=== PATIENT | female | born 1975 | race Caucasian/White ===

== ENCOUNTER → 2022-01-27 | Outpatient (CLI) | payer BC, SELFPAY ==
[2022-01-27 07:53] LABS: Bacteria 0 SEEN /hpf (None Seen); Mucous, Urine 0 SEEN /hpf (<or=2+); Red Blood Cells-Urine 0 SEEN /hpf (0-5)
[2022-01-27 08:21] LABS: Absolute Lymphocyte Count 2.12 X10^3/uL (0.83-4.51); Absolute Neutrophil Count 4.7 X10^3/uL (2.0-7.7); Basophil# 0.02 X10^3/uL; Basophil% 0.3 % (0-1); Color, Urine Yellow (Yellow); Eosinophil# 0.14 X10^3/uL; Eosinophils% 1.8 % (0-5); Glucose, Dipstick Normal (Normal); Hematocrit 40.5 % (37-47); Hemoglobin 13.6 g/dL (12.0-15.0); Ketone-Dipstick Negative (Negative); Leukocyte Esterase-Dipstick 25 /ul (Negative); Lymphocyte # 2.12 X10^3/ul (0.83-4.51); Mean Corp Hgb Conc 33.6 g/dL (32-36); Mean Corpuscular Volume 89.2 fL (81-99); Mean Platelet Vol. 10.8 fl (6.2-12.0); Monocyte# 0.58 X10^3/uL; Monocyte% 7.7 % (0-10); NRBC Flagged by Analyzer 0 % (0-5); Neutrophil # 4.69 X10^3/uL (2.7-7.7); Neutrophil % 61.8 % (47-70); Nitrite-Dipstick Negative (Negative); Occult Blood-Urine Negative /ul (Negative); Platelet Count 269 K/mm3 (150-450); Protein-Dipstick 15 mg/dl (Negative); RBC Distribution Width CV 13.7 % (11.6-14.6); RBC Distribution Width SD 44.8 fl (35.1-43.9); Red Blood Count 4.54 M/mm3 (4.2-5.4); Urine Bilirubin Dipstick Negative (Negative); Urine Clarity Clear (Clear); Urine Urobilinogen 1 mg/dl (Normal); White Blood Count 7.6 K/mm3 (4.4-11.0)
[2022-01-27 08:42] LABS: Squamous Epithelial Cells - UA 0-5 SEEN /hpf (5-10); White Blood Cells 0-5 SEEN /hpf (0-5)
[2022-01-27 08:52] LABS: Microalbumin,Random Urine 15.7 mg/L (NO RANGE EST.); Microalbumin:Creatinine Ratio 8.2 mg/g CRE (<30 mg/g CRE)
[2022-01-27 08:53] LABS: ALB/GLOB Ratio 0.8 RATIO (0.9-2.4); AST(SGOT) 16 U/L (15-37); Alanine Aminotransfer ALT/SGPT 31 U/L (13-56); Albumin, Serum 3.6 g/dL (3.2-5.0); Alkaline Phosphatase 66 U/L (45-117); Anion Gap 4 (5-15); BUN 10 mg/dL (7-18); BUN/Creat Ratio 15.3 RATIO (10-20); Calcium,Total 8.5 mg/dL (8.5-10.1); Chloride 107 mmol/L (98-107); Cholesterol 169 mg/dL (200); Creatinine, Serum 0.65 mg/dL (0.55-1.02); EST Glomerular Filtration Rate 102 mL/min (>60); Est Glom Filt Rate - Afr Amer 124 mL/min (>60); Globulin 4.3 g/dL (2.2-4.2); Glucose 116 mg/dL (74-106); High Density Lipoprotein 35 mg/dL; Potassium 3.8 mmol/L (3.5-5.1); Protein, Total 7.9 g/dL (6.4-8.2); Sodium Level 137 mmol/L (136-145); Triglycerides 75 mg/dL; Very Low Density Lipoprotein 15 mg/dL (5-40)
== END | disposition home or self-care (01) ==
LOC: LAB 07:49
PROVIDERS: PCP Internal Medicine; Referring Provider Internal Medicine; Visit Provider Internal Medicine
DX: I10 Essential (primary) hypertension (principal)
CPT/HCPCS: 36415; 80053; 80061; 81001; 82043; 82570; 85025

== ENCOUNTER → 2022-11-22 | Outpatient (CLI) | payer BC, SELFPAY ==
[2022-11-22 16:37] LABS: Hematocrit 39.6 % (37-47); Hemoglobin 13.2 g/dL (12.0-15.0); Mean Corp Hgb Conc 33.3 g/dL (32-36); Mean Corpuscular Hgb 30.2 pg (27.0-32.0); Mean Corpuscular Volume 90.6 fL (81-99); Mean Platelet Vol. 10.9 fl (6.2-12.0); Platelet Count 247 K/mm3 (150-450); RBC Distribution Width CV 13.8 % (11.6-14.6); RBC Distribution Width SD 46.1 fl (35.1-43.9); Red Blood Count 4.37 M/mm3 (4.2-5.4); White Blood Count 9.4 K/mm3 (4.4-11.0)
[2022-11-22 16:59] LABS: BNP,B-Type NATRIURETIC PEPTIDE 12.8 pg/mL (0-100)
== END | disposition home or self-care (01) ==
LOC: LAB 15:52
PROVIDERS: PCP Internal Medicine; Visit Provider Internal Medicine Pulmonary Disease
DX: R06.00 Dyspnea, unspecified (principal); R06.02 Shortness of breath
CPT/HCPCS: 36415; 83880; 85027

== ENCOUNTER → 2022-11-27 | Outpatient (CLI) | payer BC, SELFPAY ==
--- NOTE | 2022-11-27 15:55 | RAD_ITS ---
STUDY: X-RAY CHEST REASON FOR EXAM: Female, 47 years old. Dyspnea. Shortness of breath. TECHNIQUE: Frontal and lateral views of the chest. COMPARISON: None. FINDINGS: The lungs are clear and expanded. There is no demonstrated pleural abnormality. Normal size heart. Normal mediastinum and cyndee. Normal visualized pulmonary arteries. Normal visualized aortic arch and descending thoracic aorta. Diffuse scattered thoracic spondylosis. Normal visualized ribs, clavicles, and shoulders. There is no demonstrated abnormality of the visualized soft tissue structures of the upper abdomen. RAD/Chest PA and Lateral IMPRESSION: No active or acute cardiopulmonary disease. Electronically Signed: Shoaib Roberts, at 10:04 [facility] ,
== END | disposition home or self-care (01) ==
LOC: RAD 15:52
PROVIDERS: PCP Internal Medicine; Visit Provider Internal Medicine Pulmonary Disease
DX: R06.00 Dyspnea, unspecified (principal); R06.02 Shortness of breath
CPT/HCPCS: 71046

== ENCOUNTER → 2022-12-06 | Outpatient (CLI) | payer BC, SELFPAY ==
--- NOTE | 2022-12-06 13:40 | ECHOD_ITS ---
Reason For Study: DYSPNEA Procedure This was a 2D Doppler, Color Flow transthoracic echocardiogram. Exam performed in department. Left Ventricle Normal LV size. The estimated ejection fraction is 65 %. Normal diastology for age. No regional wall motion abnormalities noted. Right Ventricle Normal RV size. Normal systolic function. Atria Normal left atrium. Normal right atrium. No doppler evidence for ASD. Mitral Valve There is no mitral valve stenosis. No mitral valve insufficiency. Tricuspid Valve There is no tricuspid stenosis. Unable to estimate RV systolic pressure due to inadequate jet, pulmonary artery pressure probably normal. Aortic Valve Trisinus/trileaflet aortic valve. There is no aortic stenosis. No aortic valve insufficiency. Pulmonic Valve There is no pulmonic valvular stenosis. No pulmonic valve insufficiency. Great Vessels Normal aortic root. Pericardium/Pleural No pericardial effusion. MMode/2D Measurements & Calculations LVIDd: 5.0 cm IVSd: 1.1 cm Ao root diam: 2.8 cm LVIDs: 2.8 cm LVPWd: 1.1 cm FS: 42.9 % LAV(MOD-bp): 59.8 ml LVAd ap4: 32.9 cm2 LVAd ap2: 27.1 cm2 LAV(MOD-bp) Indexed: 25.3 ml/m2 LVLd ap4: 9.0 cm LVLd ap2: 8.4 cm LAV(MOD-sp2): 49.7 ml EDV(MOD-sp4): 101.4 ml EDV(MOD-sp2): 78.2 ml LAV(MOD-sp4): 67.5 ml EDV(sp4-el): 101.9 ml EDV(sp2-el): 74.2 ml LVAs ap4: 13.7 cm2 LVAs ap2: 13.6 cm2 LVLs ap4: 6.9 cm LVLs ap2: 6.2 cm ESV(MOD-sp4): 27.3 ml ESV(MOD-sp2): 26.7 ml ESV(sp4-el): 23.2 ml ESV(sp2-el): 25.2 ml EF(MOD-sp4): 73.0 % EF(MOD-sp2): 65.8 % EF(sp4-el): 77.2 % SV(MOD-sp4): 74.0 ml SV(MOD-sp2): 51.5 ml SV(sp4-el): 78.7 ml LA dimension(2D): 3.6 cm LA A4 area: 21.4 cm2 RA A4 area: 15.4 cm2 Time Measurements MV dec time: 0.20 sec Doppler Measurements & Calculations MV E max aquiles: 95.3 cm/sec Lat Peak E' Aquiles: 13.2 cm/sec Med Peak E' Aquiles: 14.5 cm/sec MV A max aquiles: 74.9 cm/sec E/E' lat: 7.2 E/E' med: 6.6 MV E/A: 1.3 Ao V2 max: 127.2 cm/sec LV V1 max: 98.2 cm/sec PA V2 max: 97.2 cm/sec Ao max P.5 mmHg LV V1 max P.9 mmHg Ao V2 mean: 88.3 cm/sec LV V1 mean P.7 mmHg Ao mean P.6 mmHg LV V1 mean: 61.1 cm/sec Ao V2 VTI: 26.5 cm LV V1 VTI: 18.7 cm AV (velocity ratio): 0.70 ECHO/Echo Complete Interpretation Summary The estimated ejection fraction is 65 %. No significant valvular abnormalities Ordering Physician: Rafa Maxwell V Referring Physician: Evangelina Irby Performed By: Tammy oJseph, JULIA, RVT
== END | disposition home or self-care (01) ==
LOC: CVS 13:37
PROVIDERS: PCP Internal Medicine; Referring Provider Internal Medicine Pulmonary Disease; Visit Provider Internal Medicine Pulmonary Disease
DX: R06.00 Dyspnea, unspecified (principal)
CPT/HCPCS: 93306

== ENCOUNTER → 2023-02-11 | Outpatient (CLI) | payer BC, SELFPAY ==
--- NOTE | 2023-02-11 07:14 | CT_ITS ---
INDICATION: Worsening shortness of breath EXAMINATION: CT CHEST WITHOUT CONTRAST - CT Chest W/O Contrast Injection TECHNIQUE: Helically acquired images were obtained of the chest. A radiation dose optimization technique was used for this scan. Scans were obtained in the prone position IV Contrast dosage and agent: None. COMPARISON: None. FINDINGS: LUNGS, PLEURA AND LARGE AIRWAYS: Likely chronic elevation of the right hemidiaphragm. No organizing infiltrate effusion or suspicious noncalcified mass or nodule. There is some subtle interstitial edema in both lung hernandez suggesting pulmonary vascular congestion. No demonstrated pleural or pericardial effusions. THYROID: No thyroid lesions. HEART AND PERICARDIUM: Heart size is normal. No pericardial effusion. CORONARY ARTERIES: Coronary artery calcification is not seen. VESSELS: Thoracic aorta is not dilated. MEDIASTINUM AND VICTORIANO: No suspicious mediastinal or hilar adenopathy. Multiple calcified perihilar lymph nodes noted. Esophagus is unremarkable. No hiatal hernia. UPPER ABDOMEN: Limited cuts through the upper abdomen show diffuse fatty infiltration of the liver. BONES: Degenerative bony changes CT/Chest without Contrast IMPRESSION: Subtle interstitial edema noted in both lung hernandez consistent with pulmonary vascular congestion. No organized infiltrate, effusion, or suspicious noncalcified mass or nodule Degenerative bony changes No suspicious adenopathy Electronically Signed: Jairo Huerta MD at 8:31 EDT Reading Location ID and State: [facility] / [place] , Service support ,
== END | disposition home or self-care (01) ==
LOC: CT 07:10
PROVIDERS: PCP Internal Medicine; Referring Provider Internal Medicine Pulmonary Disease; Visit Provider Internal Medicine Pulmonary Disease
DX: R06.09 Other forms of dyspnea (principal)
CPT/HCPCS: 71250

== ENCOUNTER → 2023-03-04 | Outpatient (CLI) | payer BC, SELFPAY ==
[2023-03-04 18:38] LABS: BNP,B-Type NATRIURETIC PEPTIDE 17.2 pg/mL (0-100)
== END | disposition home or self-care (01) ==
LOC: MTLAB 15:01
PROVIDERS: PCP Internal Medicine; Referring Provider Internal Medicine Pulmonary Disease; Visit Provider Internal Medicine Pulmonary Disease
DX: R06.02 Shortness of breath (principal)
CPT/HCPCS: 36415; 83880

== ENCOUNTER → 2023-12-07 | Outpatient (CLI) | payer BC, SELFPAY ==
--- OUTSIDE RECORDS SUMMARY | 2023-12-07 07:34 | XMS RPT_ITS | CCD ---
Author Name Unknown Address [address] [place] [address] Organization [facility] Care Team Providers Care Vat Skimmer Name Role Phone BENNIE MERRILL (EPOXY FABRICATION SUPERVISOR) Unavailable Unavailable SurekhaEvangelina farmer DO Unavailable [phone] [employer] CLASSROOM TECHNOLOGY TECHNICIAN, Kisha Unavailable Unavailable [employer] ELECTRONICS PROCESSOR, Elin Unavailable Unavailable Unavailable Unavailable Surekha DO Evangelina Unavailable [phone] [place] CLASSROOM TECHNOLOGY TECHNICIAN, Kayela Unavailable Unavailable Danika Paul MA Unavailable Unavailable SurekhaEvangelina farmer DO Attending Unavailable SurekhaEvangelina farmer DO Referring Unavailable Surekha Evangelina LAST Consulting Unavailable Medications Completed/Discontinued Medications Medication Drug Class(es) Dates Sig (Normalized) Sig (Original) 200 actuat albuterol 0.09 mg/actuat dry powder inhaler (11 sources) beta2-Adrenergic Agonist ProAir RespiClick 10 8 (90 Base) MCG/ACT Inhalation Aerosol Powder Breath Activated (108 (90 Base) MCG/ACT) Active Comments: dr holt - licensed staff mft Problems Active Problems Problem Classification Problem Date Documented Da te Episodic/Chronic Administrative/social admission (20 sources) Patient encounter status; Translations: [Nutritional counseling] 01-24-2022 Episodic Past or Other Problems Problem Classification Problem Date Documented Da te Episodic/Chronic Unclassified (11 sources) Pregnancies (); Translations: [Pregnancies ()] 01-24-2022 Results Test Name Value Interpretation Reference Range Facil ity Vital Signs Date Time Vital Sign Value Performing Clinician Facility 11-02-2022 07:22-0500 Body height 148.59 cm [facility]; [facility] Work Phone: 11-02-2022 07:22-0500 Body mass index (BMI) [Ratio] 58.17 kg/m2 [facility]; [facility] Work Phone: 11-02-2022 [id number] Body surface area Derived from formula 2.12 m2 [facility]; [facility] Work Phone: 11-02-2022 07:050 Body temperature 96.8 [degF] [facility]; [facility] Work Phone: 11-02-2022 07:050 Body weight 128.43 kg [facility]; [facility] Work Phone: 11-02-2022 07:22-050 Diastolic blood pressure 80 mm[Hg] [facility]; [facility] Work Phone: Encounters Encounter Date Encounter Type Care Provider Facility Start: 11-02-2022 End: 11-02-2022 Patient encounter procedure [facility]; [facility] Work Phone: Start: 11-02-2022 End: 11-02-2022 Periodic preventive med est patient 40-64yrs Evangelina Surekha DO Work Phone: [facility] Start: 10-09-2022 ambulatory Evangelina Surekha DO [facility] Start: 09-20-2022 End: 09-21-2022 Office outpatient visit 15 minutes Evangelina Surekha DO Work Phone: [facility] Start: 09-20-2022 Review Evangelina Fearo n DO Work Phone: [facility] Start: 03-19-2022 End: 03-20-2022 Office outpatient visit 15 minutes Evangelina Surekha DO Work Phone: [facility] Start: 03-19-2022 Review Evangelina Fearo n DO Work Phone: [facility] Start: 02-26-2022 End: 02-26-2022 Office outpatient visit 15 minutes Evangelina Surekha DO Work Phone: [facility] Start: 01-24-2022 End: 01-24-2022 Office outpatient new 30 minutes Evangelina Surekha DO Work Phone: [facility] Start: 10-10-2017 End: 10-11-2017 Ambulatory BENNIE (EPOXY FABRICATION SUPERVISOR) [facility] Start: 09-29-2017 End: 09-29-2017 Ambulatory BENNIE [facility] Procedures Date Procedure Procedure Detail Performing Clinician Start: 02-11-2023 End: 02-11-2023 Chest without Contrast Procedure Note: See Note; NOTES: [facility] Imaging Services [address] [place] [address] Chest without Contrast MR#: [id number] Acct: [id number] Name: YESSI MOREIRA Rep #: [id number] : 1975 F 47 From: Ollie Huerta MD PCP: Dr. Evangelina Irby, DO Status: REG CLI Study: Chest without Contrast Date of Exam: 02/11/23 Exam# [id number] Ordering Dr: Rafa Maxwell MD INDICATION: Worsening shortness of breath EXAMINATION: CT CHEST WITHOUT CONTRAST - CT Chest W/O Contrast Injection TECHNIQUE: Helically acquired images were obtained of the chest. A radiation dose optimization technique was used for this scan. Scans were obtained in the prone position IV Contrast dosage and agent: None. COMPARISON: None. FINDINGS: LUNGS, PLEURA AND LARGE AIRWAYS: Likely chronic elevation of the right hemidiaphragm. No organizing infiltrate effusion or suspicious noncalcified mass or nodule. There is some subtle interstitial edema in both lung hernandez suggesting pulmonary vascular congestion. No demonstrated pleural or pericardial effusions. THYROID: No thyroid lesions. HEART AND PERICARDIUM: Heart size is normal. No pericardial effusion. CORONARY ARTERIES: Coronary artery calcification is not seen. VESSELS: Thoracic aorta is not dilated. MEDIASTINUM AND CYNDEE: No suspicious mediastinal or hilar adenopathy. Multiple calcified perihilar lymph nodes noted. Esophagus is unremarkable. No hiatal hernia. UPPER ABDOMEN: Limited cuts through the upper abdomen show diffuse fatty infiltration of the liver. BONES: Degenerative bony changes CT/Chest without Contrast IMPRESSION: Subtle interstitial edema noted in both lung hernandez consistent with pulmonary vascular congestion. No organized infiltrate, effusion, or suspicious noncalcified mass or nodule Degenerative bony changes No suspicious adenopathy Electronically Signed: Jairo Huerta MD at 8:31 EDT , CC: Dr. Evangelina Irby DO; Dr. Rafa Maxwell MD Tube Mounter: Signed Evangelina Irby DO Work Phone: Start: 12-06-2022 End: 12-08-2022 Echo Complete Procedure Note: See Note; NOTES: [facility] [address] [place] [address] Echo Complete 12/06/22 1346 MR#: [id number] Acct: [id number] Name: YESSI MOREIRA Rep #: [id number] : 1975 47 From: Cyrus Holloway MD Attending Dr: Dr. Rafa Maxwell MD Status: REG CLI Ordering Dr: Rafa Maxwell MD Date: 12/06/22 Location: [facility] Sex: F C Admitted: Reason For Study: DYSPNEA Procedure This was a 2D Doppler, Color Flow transthoracic echocardiogram. Exam performed in department. Left Ventricle Normal LV size. The estimated ejection fraction is 65 %. Normal diastology for age. No regional wall motion abnormalities noted. Right Ventricle Normal RV size. Normal systolic function. Atria Normal left atrium. Normal right atrium. No doppler evidence for ASD. Mitral Valve There is no mitral valve stenosis. No mitral valve insufficiency. Tricuspid Valve There is no tricuspid stenosis. Unable to estimate RV systolic pressure due to inadequate jet, pulmonary artery pressure probably normal. Aortic Valve Trisinus/trileaflet aortic valve. There is no aortic stenosis. No aortic valve insufficiency. Pulmonic Valve There is no pulmonic valvular stenosis. No pulmonic valve insufficiency. Great Vessels Normal aortic root. Pericardium/Pleural No pericardial effusion. MMode/2D Measurements Calculations LVIDd: 5.0 cm IVSd: 1.1 cm Ao root diam: 2.8 cm LVIDs: 2.8 cm LVPWd: 1.1 cm FS: 42.9 % LAV(MOD-bp): 59.8 ml LVAd ap4: 32.9 cm2 LVAd ap2: 27.1 cm2 LAV(MOD-bp) Indexed: 25.3 ml/m2 LVLd ap4: 9.0 cm LVLd ap2: 8.4 cm LAV(MOD-sp2): 49.7 ml EDV(MOD-sp4): 101.4 ml EDV(MOD-sp2): 78.2 ml LAV(MOD-sp4): 67.5 ml EDV(sp4-el): 101.9 ml EDV(sp2-el): 74.2 ml LVAs ap4: 13.7 cm2 LVAs ap2: 13.6 cm2 LVLs ap4: 6.9 cm LVLs ap2: 6.2 cm ESV(MOD-sp4): 27.3 ml ESV(MOD-sp2): 26.7 ml ESV(sp4-el): 23.2 ml ESV(sp2-el): 25.2 ml EF(MOD-sp4): 73.0 % EF(MOD-sp2): 65.8 % EF(sp4-el): 77.2 % SV(MOD-sp4): 74.0 ml SV(MOD-sp2): 51.5 ml SV(sp4-el): 78.7 ml LA dimension(2D): 3.6 cm LA A4 area: 21.4 cm2 RA A4 area: 15.4 cm2 Time Measurements MV dec time: 0.20 sec Doppler Measurements Calculations MV E max aquiles: 95.3 cm/sec Lat Peak E' Aquiles: 13.2 cm/sec Med Peak E' Aquiles: 14.5 cm/sec MV A max aquiles: 74.9 cm/sec E/E' lat: 7.2 E/E' med: 6.6 MV E/A: 1.3 Ao V2 max: 127.2 cm/sec LV V1 max: 98.2 cm/sec PA V2 max: 97.2 cm/sec Ao max P.5 mmHg LV V1 max P.9 mmHg Ao V2 mean: 88.3 cm/sec LV V1 mean P.7 mmHg Ao mean P.6 mmHg LV V1 mean: 61.1 cm/sec Ao V2 VTI: 26.5 cm LV V1 VTI: 18.7 cm AV (velocity ratio): 0.70 ECHO/Echo Complete Interpretation Summary The estimated ejection fraction is 65 %. No significant valvular abnormalities Ordering Physician: Rafa Maxwell V Referring Physician: Evangelina Irby Performed By: Tammy Joseph, JULIA, RVT 12/08/22 1245 Date Cyrus Holloway MD CC: Dr. Evangelina Irby, DO; Dr. Rafa Maxwell MD Date Dictated: 12/06/22 1346 Date Transcribed: 12/08/22 1245 Tube Mounter: Signed Evangelina Irby DO Work Phone: Start: 11-27-2022 End: 11-28-2022 Chest PA and Lateral Procedure Note: See Note; NOTES: [facility] Imaging Services [address] [place] [address] Chest PA and Lateral MR#: [id number] Acct: [id number] Name: YESSI MOREIRA Rep #: [id number] : 1975 F 47 From: Shoaib Roberts MD PCP: Dr. Evangelina Irby DO Status: REG CLI Study: Chest PA and Lateral Date of Exam: 11/27/22 Exam# [id number] Ordering Dr: Rafa Maxwell MD STUDY: X-RAY CHEST REASON FOR EXAM: Female, 47 years old. Dyspnea. Shortness of breath. TECHNIQUE: Frontal and lateral views of the chest. COMPARISON: None. FINDINGS: The lungs are clear and expanded. There is no demonstrated pleural abnormality. Normal size heart. Normal mediastinum and cyndee. Normal visualized pulmonary arteries. Normal visualized aortic arch and descending thoracic aorta. Diffuse scattered thoracic spondylosis. Normal visualized ribs, clavicles, and shoulders. There is no demonstrated abnormality of the visualized soft tissue structures of the upper abdomen. RAD/Chest PA and Lateral IMPRESSION: No active or acute cardiopulmonary disease. Electronically Signed: Shoaib Roberts, at 10:04 EST , CC: Dr. Evangelina Irby DO; Dr. Rafa Maxwell MD Tube Mounter: Signed Evangelina Irby DO Work Phone: Ligation of fallopia n tube Kisha Gravius CLASSROOM TECHNOLOGY TECHNICIAN Plan of Treatment Date Care Activity Detail Author Start: 11-02-2022 Procedure Education Eprescribed prescriptions (G8553) [facility] Work Phone: Start: 11-02-2022 Provider Instructions for Treatment [facility]; [facility] Work Phone: Start: 11-02-2022 Hpv, dna, amp probe HPV Auto Reflex PAP (60547) [facility]; [facility] Work Phone: Start: 09-20-2022 Urnls dip stick/tablet reagent auto microscopy URINALYSIS, W/ MICRO (96763) [facility]; [facility] Work Phone: Start: 09-20-2022 Urine albumin quantitative MICROALBUMIN: CREATININE RATIO (11152) AND (72503) [facility]; [facility] Work Phone: Start: 09-20-2022 Comprehensive metabolic panel METABOLIC PANEL, COMPREHENSIVE (95075) [facility]; [facility] Work Phone: Start: 09-20-2022 Lipid panel LIPID PANEL (38765) [facility]; [facility] Work Phone: Start: 09-20-2022 Blood count complete auto&auto difrntl wbc CBC W/AUTO DIFF WBC (81406) [facility]; [facility] Work Phone: Start: 09-20-2022 Procedure Education Eprescribed prescriptions (G8553) [facility]; [facility] Work Phone: Start: 09-20-2022 Provider Instructions for Treatment Continue Current Prescription(s) [facility]; [facility] Work Phone: Start: 03-19-2022 Procedure Education Eprescribed prescriptions (G8553) [facility]; [facility] Work Phone: Start: 03-19-2022 Provider Instructions for Treatment [facility]; [facility] Work Phone: Start: 02-26-2022 Procedure Education Eprescribed prescriptions (G8553) [facility]; [facility] Work Phone: Start: 02-26-2022 Provider Instructions for Treatment Follow up in 3 weeks [facility]; [facility] Work Phone: Start: 01-24-2022 Urnls dip stick/tablet reagent auto microscopy URINALYSIS, W/ MICRO (28388) [facility]; [facility] Work Phone: Start: 01-24-2022 Urine albumin quantitative MICROALBUMIN: CREATININE RATIO (09292) AND (43281) [facility]; [facility] Work Phone: Start: 01-24-2022 Comprehensive metabolic panel METABOLIC PANEL, COMPREHENSIVE (19661) [facility]; [facility] Work Phone: Start: 01-24-2022 Lipid panel LIPID PANEL (16710) [facility]; [facility] Work Phone: Start: 01-24-2022 Blood count complete auto&auto difrntl wbc CBC W/AUTO DIFF WBC (79340) [facility]; [facility] Work Phone: Start: 01-24-2022 Procedure Education Eprescribed prescriptions (G8553) [facility]; [facility] Work Phone: Start: 01-24-2022 Provider Instructions for Treatment [facility]; [facility] Work Phone: [facility] Work Phone: [facility] Work Phone: [facility] Work Phone: Immunizations Immunization Date Immunization Notes Care Provider Carla hernandez 06-23-2021 COVID-Moderna (100 MCG/0.5 ML) Evangelina Irby DO Work Phone: [facility]; [facility] Work Phone: 09-23-2020 COVID-Moderna (100 MCG/0.5 ML) Evangelina Irby DO Work Phone: [facility]; [facility] Work Phone: Payers Date Payer Category Payer Unknown [id number] 1975 Unknown [id number] Unknown Sole BC/BS Social History Date Type Detail Facility Caffeine Use Caffeine Use [facility] Work Phone: Instructions Note Date & Type Note Facility [facility]; [facility] Work Phone: Instructions Note Date & Type Note Facility [facility]; [facility] Work Phone: Instructions Note Date & Type Note Facility [facility]; [facility] Work Phone: Instructions Note Date & Type Note Facility [facility]; [facility] Work Phone: Instructions Note Date & Type Note Facility [facility]; [facility] Work Phone: Instructions Note Date & Type Note Facility [facility]; [facility] Work Phone: Instructions Note Date & Type Note Facility [facility]; [facility] Work Phone: Instructions Note Date & Type Note Facility [facility]; [facility] Work Phone: Instructions Note Date & Type Note Facility [facility]; [facility] Work Phone: Summary Purpose Family History Unknown Family Member Name Dates Details Father Comments:auto immune disease Status:Active Maternal Grandfather Comments:CHF diabeties and p rostate cancer Status:Active Maternal Grandmother Comments:CHF Status:Active Mother Comments:stroke then seizure s Status:Active Unknown Family Member Name Dates Details Father Comments:auto immune disease Status:Active Maternal Grandfather Comments:CHF diabeties and p rostate cancer Status:Active Maternal Grandmother Comments:CHF Status:Active Mother Comments:stroke then seizure s Status:Active Unknown Family Member Name Dates Details Father Comments:auto immune disease Status:Active Maternal Grandfather Comments:CHF diabeties and p rostate cancer Status:Active Maternal Grandmother Comments:CHF Status:Active Mother Comments:stroke then seizure s Status:Active Unknown Family Member Name Dates Details Father Comments:auto immune disease Status:Active Maternal Grandfather Comments:CHF diabeties and p rostate cancer Status:Active Maternal Grandmother Comments:CHF Status:Active Mother Comments:stroke then seizure s Status:Active Unknown Family Member Name Dates Details Father Comments:auto immune disease Status:Active Maternal Grandfather Comments:CHF diabeties and p rostate cancer Status:Active Maternal Grandmother Comments:CHF Status:Active Mother Comments:stroke then seizure s Status:Active Unknown Family Member Name Dates Details Father Comments:auto immune disease Status:Active Maternal Grandfather Comments:CHF diabeties and p rostate cancer Status:Active Maternal Grandmother Comments:CHF Status:Active Mother Comments:stroke then seizure s Status:Active Unknown Family Member Name Dates Details Father Comments:auto immune disease Status:Active Maternal Grandfather Comments:CHF diabeties and p rostate cancer Status:Active Maternal Grandmother Comments:CHF Status:Active Mother Comments:stroke then seizure s Status:Active Unknown Family Member Name Dates Details Father Comments:auto immune disease Status:Active Maternal Grandfather Comments:CHF diabeties and p rostate cancer Status:Active Maternal Grandmother Comments:CHF Status:Active Mother Comments:stroke then seizure s Status:Active Unknown Family Member Name Dates Details Father Comments:auto immune disease Status:Active Maternal Grandfather Comments:CHF diabeties and p rostate cancer Status:Active Maternal Grandmother Comments:CHF Status:Active Mother Comments:stroke then seizure s Status:Active Unknown Family Member Name Dates Details Father Comments:auto immune disease Status:Active Maternal Grandfather Comments:CHF diabeties and p rostate cancer Status:Active Maternal Grandmother Comments:CHF Status:Active Mother Comments:stroke then seizure s Status:Active Advance Directives No Advanced Directives Records FoundNo Advanced Directives Records Found Additional Source Comments INFORMATION SOURCE (unrecogn ized section and content) DATE CREATED AUTHOR AUTHOR'S ORGANABEL ATION 10/10/2022 [facility] FOR RECORDS PERTAINING TO PATIENTS WHO ARE OR HAVE BEEN ENROLLED IN A CHEMICAL DEPENDENCY/SUBSTANCEABUSE PROGRAM, SOME INFORMATION MAY BE OMITTED. This clinical summary was aggregated from multiple sources. Caution should be exercised in using it in the provision of clinical care. This summary normalizes information from multiple sources, and as a consequence, information in this document may materially change the coding, format and clinical context of patient data. In addition, data may be omitted in some cases. CLINICAL DECISIONS SHOULD BE BASED ON THE PRIMARY CLINICAL RECORDS. [facility] [employer] [facility]. provides no warranty or guarantee of the accuracy or completeness of information in this document.
[2023-12-07 07:35] LABS: Bacteria 0 SEEN /hpf (None Seen); Mucous, Urine 0 SEEN /hpf (<or=2+); Red Blood Cells-Urine 0 SEEN /hpf (0-5); White Blood Cells 0 SEEN /hpf (0-5)
[2023-12-07 08:13] LABS: Absolute Neutrophil Count 6.2 X10^3/uL (2.0-7.7); Basophil# 0.02 X10^3/uL; Basophil% 0.2 % (0-1); Eosinophil# 0.12 X10^3/uL; Eosinophils% 1.4 % (0-5); Hematocrit 37.9 % (37-47); Hemoglobin 12.5 g/dL (12.0-15.0); Lymphocyte % 19.6 % (19-41); Mean Corpuscular Hgb 29.8 pg (27.0-32.0); Mean Corpuscular Volume 90.2 fL (81-99); Mean Platelet Vol. 10.6 fl (6.2-12.0); Monocyte# 0.64 X10^3/uL; Monocyte% 7.4 % (0-10); NRBC Flagged by Analyzer 0 % (0-5); Neutrophil # 6.18 X10^3/uL (2.7-7.7); Neutrophil % 71.1 % (47-70); Platelet Count 239 K/mm3 (150-450); RBC Distribution Width CV 14.5 % (11.6-14.6); RBC Distribution Width SD 47.5 fl (35.1-43.9); White Blood Count 8.7 K/mm3 (4.4-11.0)
[2023-12-07 08:44] LABS: Color, Urine Yellow (Yellow); Glucose, Dipstick Normal (Normal); Ketone-Dipstick Negative (Negative); Leukocyte Esterase-Dipstick 25 /ul (Negative); Nitrite-Dipstick Negative (Negative); Occult Blood-Urine Negative /ul (Negative); Protein-Dipstick Negative (Negative); Urine Bilirubin Dipstick Negative (Negative); Urine Clarity Clear (Clear); Urine Urobilinogen Normal (Normal); Urine pH 6.5 (5.0 - 8.0)
[2023-12-07 08:46] LABS: ALB/GLOB Ratio 0.8 RATIO (0.9-2.4); AST(SGOT) 18 U/L (15-37); Alanine Aminotransfer ALT/SGPT 30 U/L (13-56); Albumin, Serum 3.5 g/dL (3.2-5.0); Alkaline Phosphatase 70 U/L (45-117); Anion Gap 4 (5-15); BUN 8 mg/dL (7-18); BUN/Creat Ratio 12.6 RATIO (10-20); Calcium,Total 8.9 mg/dL (8.5-10.1); Chloride 106 mmol/L (98-107); Cholesterol 170 mg/dL (200); Creatinine, Serum 0.64 mg/dL (0.55-1.02); EST Glomerular Filtration Rate 105 mL/min (>60); Est Glom Filt Rate - Afr Amer 127 mL/min (>60); Globulin 4.2 g/dL (2.2-4.2); Glucose 117 mg/dL (74-106); High Density Lipoprotein 34 mg/dL; Potassium 3.9 mmol/L (3.5-5.1); Protein, Total 7.7 g/dL (6.4-8.2); Sodium Level 136 mmol/L (136-145); Triglycerides 65 mg/dL; Very Low Density Lipoprotein 13 mg/dL (5-40)
[2023-12-07 08:50] LABS: Squamous Epithelial Cells - UA 0-5 SEEN /hpf (5-10)
[2023-12-07 10:31] LABS: Microalbumin,Random Urine < 5.0 mg/L (NO RANGE EST.)
== END | disposition home or self-care (01) ==
PROVIDERS: PCP Internal Medicine; Referring Provider Internal Medicine; Visit Provider Internal Medicine
DX: R73.9 Hyperglycemia, unspecified (principal); I10 Essential (primary) hypertension
CPT/HCPCS: 36415; 80053; 80061; 81001; 82043; 82570; 83036; 85025

== ENCOUNTER → 2024-06-20 | Outpatient (CLI) | payer BC, SELFPAY ==
[2024-06-20 07:46] LABS: Mucous, Urine 0 SEEN /hpf (<or=2+); Red Blood Cells-Urine 0 SEEN /hpf (0-5); White Blood Cells 0 SEEN /hpf (0-5)
[2024-06-20 08:01] LABS: Absolute Lymphocyte Count 1.83 X10^3/uL (0.83-4.51); Absolute Neutrophil Count 4.2 X10^3/uL (2.0-7.7); Basophil# 0.02 X10^3/uL; Basophil% 0.3 % (0-1); Eosinophils% 1.5 % (0-5); Hemoglobin 12.3 g/dL (12.0-15.0); Lymphocyte # 1.83 X10^3/ul (0.83-4.51); Lymphocyte % 27.4 % (19-41); Mean Corp Hgb Conc 32.4 g/dL (32-36); Mean Corpuscular Hgb 29.1 pg (27.0-32.0); Mean Platelet Vol. 10.6 fl (6.2-12.0); Monocyte# 0.46 X10^3/uL; Monocyte% 6.9 % (0-10); NRBC Flagged by Analyzer 0 % (0-5); Neutrophil # 4.24 X10^3/uL (2.7-7.7); Neutrophil % 63.6 % (47-70); Platelet Count 232 K/mm3 (150-450); RBC Distribution Width CV 14.8 % (11.6-14.6); RBC Distribution Width SD 47.7 fl (35.1-43.9); Red Blood Count 4.22 M/mm3 (4.2-5.4); White Blood Count 6.7 K/mm3 (4.4-11.0)
[2024-06-20 08:02] LABS: Color, Urine Yellow (Yellow); Glucose, Dipstick Normal (Normal); Ketone-Dipstick Negative (Negative); Leukocyte Esterase-Dipstick Negative /ul (Negative); Nitrite-Dipstick Negative (Negative); Occult Blood-Urine Negative /ul (Negative); Protein-Dipstick Negative (Negative); Urine Bilirubin Dipstick Negative (Negative); Urine Clarity Clear (Clear); Urine Urobilinogen Normal (Normal); Urine pH 6.5 (5.0 - 8.0)
[2024-06-20 08:21] LABS: Bacteria RARE /hpf (None Seen); Squamous Epithelial Cells - UA 0-5 SEEN /hpf (5-10)
[2024-06-20 08:54] LABS: ALB/GLOB Ratio 0.9 RATIO (0.9-2.4); AST(SGOT) 14 U/L (15-37); Alanine Aminotransfer ALT/SGPT 22 U/L (13-56); Albumin, Serum 3.7 g/dL (3.2-5.0); Alkaline Phosphatase 59 U/L (45-117); Anion Gap 6 (5-15); BUN 12 mg/dL (7-18); BUN/Creat Ratio 20.4 RATIO (10-20); Calcium,Total 9.3 mg/dL (8.5-10.1); Chloride 105 mmol/L (98-107); Cholesterol 196 mg/dL (200); Creatinine, Serum 0.59 mg/dL (0.55-1.02); EST Glomerular Filtration Rate 115 mL/min (>60); Est Glom Filt Rate - Afr Amer 139 mL/min (>60); Globulin 4.1 g/dL (2.2-4.2); Glucose 102 mg/dL (74-106); High Density Lipoprotein 44 mg/dL; Potassium 3.8 mmol/L (3.5-5.1); Protein, Total 7.8 g/dL (6.4-8.2); Sodium Level 139 mmol/L (136-145); Triglycerides 60 mg/dL; Very Low Density Lipoprotein 12 mg/dL (5-40)
[2024-06-20 10:04] LABS: Microalbumin,Random Urine < 5.0 mg/L (NO RANGE EST.)
== END | disposition home or self-care (01) ==
LOC: LAB 07:36
PROVIDERS: PCP Internal Medicine; Referring Provider Internal Medicine; Visit Provider Internal Medicine
DX: E78.5 Hyperlipidemia, unspecified (principal); E11.9 Type 2 diabetes mellitus without complications
CPT/HCPCS: 36415; 80053; 80061; 81001; 82043; 82570; 84443; 85025

== ENCOUNTER → 2024-11-21 | Outpatient (CLI) | payer BC, SELFPAY ==
[2024-11-21 09:13] LABS: Cholesterol 228 mg/dL (<=200); High Density Lipoprotein 54 mg/dL; Low Density Lipoprotein Calc. 163 mg/dL; Triglycerides 55 mg/dL; Very Low Density Lipoprotein 11 mg/dL (5-40); cholesterol:hdl ratio screen 4.23
== END | disposition home or self-care (01) ==
LOC: LAB 07:25
PROVIDERS: PCP Internal Medicine; Referring Provider Internal Medicine; Visit Provider Internal Medicine
DX: E78.5 Hyperlipidemia, unspecified (principal)
CPT/HCPCS: 36415; 80061

== ENCOUNTER → 2025-03-23 | Outpatient (CLI) | payer BC, SELFPAY ==
--- OUTSIDE RECORDS SUMMARY | 2025-03-23 06:09 | XMS RPT_ITS | CCD ---
Author Organization [facility] Care Team Providers Care Bulldozer Press Operator Name Role Phone DOROTHY MCGOWAN (COMPUTER FORENSICS TECHNICIAN) Unavailable Unavailable Surekha DOEvangelina Unavailable Gravius STOCK ORDER LISTER, Kisha Unavailable Unavailable Xavi JEWEL LATHE OPERATOR, Elin Unavailable Unavailable Unavailable Unavailable Evangelina Irby DO Unavailable [place] STOCK ORDER LISTER, Kayela Unavailable Unavailable [place] Danika WALSH Unavailable Unavailable Evangelina Ibry DO Attending Unavailable Evangelina Irby DO Referring Unavailable Evangelina Irby DO Consulting Unavailable Dr. Evangelina Irby Primary Care Provider Dr. Cyrus Holloway Attending Provider Dr. Evangelina Irby Primary Care Provider [phone] Dr. Evangelina Irby Referring Provider [phone] Dr. Austyn Hutson Attending Provider [phone] Evangelina Irby Primary Care Unavailable Kennedy Edwards Attending Unavailable Evangelina Irby Referring Unavailable Evangelina Irby Primary Care Unavailable Evangelina Irby Referring Unavailable Evangelina Irby Attending Unavailable Evangelina Irby Attending Unavailable Evangelina Irby Primary Care Unavailable Evangelina Irby Referring Unavailable Dr. Evangelina Irby DO Primary Care Provider [phone] Dr. Evangelina Irby DO Attending Provider [phone] Dr. Evangelina Irby DO Referring Provider [phone] Medications Current Medications Medication Drug Class(es) Dates Sig (Normalized) Sig (Original) [id number] 200 actuat albuterol 0.09 mg/actuat metered dose inhaler (13 sources) beta2-Adrenergic Agonist Start: 06-28-2023 Albuterol Sulfate (Ventolin Hfa) 90 mcg/actuation HFA aerosol inhaler Active 2 NMA INHALATION 4 TIMES DAILY as needed June 28, 2023 12:00am Start: 06-28-2023 take 1 puff(s) by in halation four times daily Albuterol Sulfate (Ventolin Hfa) 90 mcg/actuation HFA aerosol inhaler Active 2 PUFF INHALATION 4 TIMES DAILY June 28, 2023 12:00am ProAir RespiClic k 108 (90 Base) MCG/ACT Inhalation Aerosol Powder Breath Activated (108 (90 Base) MCG/ACT) Active Comments: dr holt - anchor tack puller Comment on above: dr holt - allerg ist 30 actuat fluticasone furoate 0.2 mg/actuat / vilanterol 0.025 mg/actuat dry powder inhaler (2 sources) Corticosteroid, beta2-Adrenergic Agonist Start: 06-28-2023 Fluticasone Furoate-Vilanterol (Breo Ellipta) 200-25 mcg/dose blister with device Active 1 NMA INHALATION DAILY June 28, 2023 12:00am Start: 06-28-2023 Fluticasone Fu roate-Vilanterol (Breo Ellipta) 200-25 mcg/dose blister with device Active 1 INH INHALATION DAILY June 28, 2023 12:00am losartan potassium 50 mg oral tablet (11 sources) Angiotensin 2 Receptor Fidelina Start: 06-28-2023 take 1 tablet by mouth once daily Losartan 50 mg tablet Active 50 mg PO DAILY June 28, 2023 12:00am Start: 03-11-2023 take 1 tablet by rhett th once daily in the morning losartan 50 mg oral tablet 1 (one) Tablet qam for 0 days Quantity: 90 {Tablet} Refills: 2 Ordered: 11-Mar-2023 Evangelina Irby DO, DO, Kathleen Start : 11-Mar-2023 Active Start: 02-05-2023 take 1 tablet by rhett th once daily in the morning losartan 50 mg oral tablet 1 (one) Tablet qam for 0 days Quantity: 30 {Tablet} Refills: 2 Ordered: 05-Feb-2023 Evangelina Irby DO, DO, Kathleen Start : 16-May-2023 Active Start: 08-31-2022 take 1 tablet by rhett th once daily in the morning losartan 50 mg oral tablet 1 (one) Tablet qam for 0 days Quantity: 30 {Tablet} Refills: 2 Ordered: 31-Aug-2022 Surekha LAST Evangelina Irby DO Evangelina Start : 31-Aug-2022 Active Start: 05-31-2022 take 1 tablet by rhett th once daily in the morning Losartan Potassium 50 MG Oral Tablet 1 (one) Tablet qam for 0 days Quantity: 30 {Tablet} Refills: 2 Ordered: 31-May-2022 Surekha LAST, Evangelina Irby DO Evangelina Start : 31-May-2022 Active Start: 02-26-2022 take 1 tablet by rhett th once daily in the morning Losartan Potassium 50 MG Oral Tablet 1 (one) Tablet qam for 0 days Quantity: 30 {Tablet} Refills: 2 Ordered: 26-Feb-2022 Elin Hurley LPN Start : 26-Feb-2022 Active montelukast 10 mg oral tablet (13 sources) Leukotriene Receptor Antagonist Start: 06-28-2023 take 1 tablet by mouth once daily Montelukast 10 mg tablet Active 10 mg PO DAILY June 28, 2023 12:00am Start: 01-08-2023 take 1 tablet by rhett th once daily at bedtime Singulair 10 mg oral tablet 1 tablet qhs for 0 days Quantity: 90 {Tablet} Refills: 3 Ordered: 08-Jan-2023 Surekha LAST, Evangelina Irby DO Evangelina Start : 08-Jan-2023 Active Comments: dr christine short Start: 09-20-2022 take 1 tablet by rhett th once daily at bedtime Singulair 10 mg oral tablet 1 tablet qhs for 0 days Quantity: 90 {Tablet} Refills: 3 Ordered: 20-Sep-2022 Surekha LAST Evangelina Surekha DO, Evangelina Start : 20-Sep-2022 Active Comments: dr christine short take 1 tablet by rhett th once daily at bedtime Singulair 10 MG Oral Tablet 1 qhs (10 MG) Active Comments: dr christien short Comment on above: dr christine short Completed/Discontinued Medications Medication Drug Class(es) Dates Sig (Normalized) Sig (Original) amLODIPine 5 mg oral tablet (11 sources) Dihydropyridine Calcium Channel Fidelina Start: 02-26-2022 End: 02-26-2022 take 1 tablet by mouth once daily in the morning Norvasc 5 MG Oral Tablet 1 (one) Tablet qam for 0 days Quantity: 30 {Tablet} Refills: 4 Ordered: 26-Feb-2022 Evangelina Irby DO, DO, Kathleen Start : 26-Feb-2022 End : 26-Feb-2022 Discontinued Start: 01-24-2022 take 1 tablet by rhett th once daily in the morning Norvasc 5 MG Oral Tablet 1 (one) Tablet qam for 0 days Quantity: 30 {Tablet} Refills: 4 Ordered: 24-Jan-2022 Evangelina Irby DO, DO, Kathleen Start : 24-Jan-2022 Active furosemide 20 mg oral tablet (9 sources) Loop Diuretic Start: 02-26-2022 End: 03-19-2022 take 1 tablet by mouth once daily Lasix 20 MG Oral Tablet 1 (one) Tablet qd for 0 days Quantity: 3 {Tablet} Refills: 0 Ordered: 19-Mar-2022 Elin Hurley LPN Start : 26-Feb-2022 End : 19-Mar-2022 Inactive Problems Active Problems Problem Classification Problem Date Documented Da te Episodic/Chronic Administrative/social admission (20 sources) Patient encounter status; Translations: [Nutritional counseling] 01-24-2022 Episodic Comment on above: will do at 48 y/o Asthma (2 sources) Asthma; Translations: [Unspecified asthma, uncomplicated] 06-28-2023 Chronic Complications of surgical procedures or medical care (16 sources) Drug therapy finding; Translations: [Medication side effect] Resolved: 09-20-2022 02-26-2022 Episodic Disorders of lipid metabolism (1 source) Hyperlipidemia, unspecified; Translations: [Hyperlipidemia, unspecified] Onset: 12-03-2024 Chronic Essential hypertension (20 sources) Benign hypertension; Translations: [HTN (hypertension), benign] 01-24-2022 Chronic Other lower respiratory disease (2 sources) Hypoxemia; Translations: [Hypoxemia] 06-28-2023 Episodic Other lower respiratory disease (2 sources) Dyspnea; Translations: [Dyspnea, unspecified] 06-28-2023 Episodic Other lower respiratory disease (1 source) Dyspnea, unspecified; Translations: [Other respiratory abnormalities] 08-28-2023 Episodic Other nutritional; endocrine; and metabolic disorders (20 sources) Morbid obesity; Translations: [Morbid obesity] 01-24-2022 Chronic Other nutritional; endocrine; and metabolic disorders (13 sources) Body mass index 40+ - severely obese; Translations: [BMI 50.0-59.9, adult] 09-20-2022 Chronic Other upper respiratory disease (10 sources) Allergic rhinitis; Translations: [Allergic rhinitis, mild] 09-20-2022 Chronic Residual codes; unclassified (20 sources) Obstructive sleep apnea syndrome; Translations: [GLADYS (obstructive sleep apnea)] 01-24-2022 Chronic Comment on above: pt wears cpap 10cm p ressure Residual codes; unclassified (20 sources) Non-smoker; Translations: [Non-smoker] 01-24-2022 Episodic Residual codes; unclassified (20 sources) Bilateral lower limb edema; Translations: [Edema of both legs] Resolved: 03-19-2022 03-19-2022 Episodic Unclassified (20 sources) Past or Other Problems Problem Classification Problem Date Documented Da te Episodic/Chronic Immunizations and screening for infectious disease (1 source) Encounter for immunization; Translations: [Encounter for immunization] Onset: 07-31-2024 Episodic Open wounds of extremities (2 sources) Laceration without foreign body of left index finger without damage to nail, initial encounter; Translations: [Laceration of left index finger] Onset: 07-31-2024 07-17-2024 Episodic Unclassified (11 sources) Pregnancies (); Translations: [Pregnancies ()] 01-24-2022 Comment on above: 2. Unclassified (8 sources) Non-smoker Unclassified (8 sources) HTN (hypertension), benign Unclassified (4 sources) GLADYS (obstructive sleep apnea) Unclassified (4 sources) Nutritional counseling Unclassified (4 sources) Edema of both legs Unclassified (2 sources) Medication side effect Results Test Name Value Interpretation Reference Range Facility Calculated very low density lipoprotein (VLDL) cholesterol measurementOrdered By: Evangelina Irby on 11-21-2024 VLDL Cholesterol 11 mg/dL 5-40 [facility] LDL calc ser/plasOrdered By: Evangelina Irby on 11-21-2024 LDL Cholesterol, Calculated 163 mg/dL [facility] Comment on above: Yylwydopqo=003-271 m g/dL & Higher Cjqo=283 mg/dL or greater Lipid Profileon 11-21-2024 CHOL:HDL 4.23 Normal [facility] Comment on above: Performed By: #### L 500.4100 #### [facility] [address] [place], [address] Cholesterol [Mass/Vol] 228 mg/dL High <=200 [facility] Comment on above: Result Comment: Chol esterol level, Desirable <200 mg/dL Borderline high cholesterol 200-239 mg/dL High cholesterol >=240 mg/dL Recommendations of the NCEP Adult Treatment Panel for the following risk-cutoff thresholds for the [place] population. Performed By: #### L 500.4100 #### [facility] [address] [place], [address] Cholesterol in HDL [Mass/Vol] 54 mg/dL Normal [facility] Comment on above: Result Comment: Deloris onal Cholesterol Education Program (NCEP) guidelines: <40 mg/dL: Low HDL-cholesterol (major risk factor for CHD) >= 60 mg/dL: High HDL-cholesterol (negative risk factor for CHD) HDL-cholesterol is affected by a number of factors, e.g. smoking, exercise, hormones, sex and age. Performed By: #### L 500.4100 #### [facility] [address] [place], [address] Cholesterol in LDL [Mass/Vol] 163 mg/dL Normal [facility] Comment on above: Result Comment: Bord pbqqer=012-716 mg/dL Higher Afpp=340 mg/dL or greater Performed By: #### L 500.4100 #### [facility] [address] [place], [address] Cholesterol in VLDL [Mass/Vol] 11 mg/dL Normal 5-40 [facility] Comment on above: Performed By: #### L 500.4100 #### [facility] [address] [place], [place], [address] Triglyceride [Mass/Vol] 55 mg/dL Normal [facility] Comment on above: Result Comment: The drugs N-Acetylcysteine and Metamizole may falsely depress this assay. Normal range: <150 mg/dL Borderline High: 150-199 mg/dL High: 200-499 mg/dL Very High: >500 mg/dL Performed By: #### L 500.4100 #### [facility] [address] [place], [address] Screening total cholesterol/ high density lipoprotein (HDL) cholesterol ratioOrdered By: Evangelina Irby on 11-21-2024 Cholesterol.total/Chol esterol in HDL [Mass ratio] 4.23 {ratio} [facility] Serum or plasma cholesterol in HDL measurement (mass/volume)Ordered By: Evangelina Irby on 11-21-2024 Cholesterol in HDL [Mass/Vol] 54 mg/dL >40 [facility] Comment on above: National Cholesterol Education Program (NCEP) guidelines:<40 mg/dL: Low HDL-cholesterol (major risk factor for CHD)>= 60 mg/dL: High HDL-cholesterol (negative risk factor for CHD)HDL-cholesterol is affected by a number of factors, e.g. smoking, exercise, hormones, sex and age. Serum or plasma cholesterol measurement (mass/volume)Ordered By: Evangelina Irby on 11-21-2024 Cholesterol [Mass/Vol] 228 mg/dL High <201 [facility] Comment on above: Cholesterol level, D esirable <200 mg/dLBorderline high cholesterol 200-239 mg/dLHigh cholesterol >=240 mg/dLRecommendations of the NCEP Adult Treatment Panel for the following risk-cutoff thresholds for the [place] population. Triglycerides measurementOrd ered By: Evangelina Irby on 11-21-2024 Triglyceride [Mass/Vol] 55 mg/dL <199 [facility] Comment on above: The drugs N-Acetylcy steine and Metamizole may falsely depress this assay. Normal range: <150 mg/dLBorderline High: 150-199 mg/dLHigh: 200-499 mg/dLVery High: >500 mg/dL Urgent Care Visit Reporton 1 0-25-2024 Urgent Care Visit Report [facility] [address], [address] [place] [address] OFFICE VISIT Date of Service: 07/17/24 MR#: [id number] Acct: [id number] Name: YESSI MOREIRA Rep #: [id number] : 1975 Provider: SAMRA Mccracken Age/Sex: 49/F Location: [facility] Status: Signed Intake Vital Signs 08/28/23 14:08 07/17/24 10:12 Height 5 ft 8 in 5 ft 8 in Weight: 280 lb 227 lb BMI 42.5 34.4 BP 144/80 H 130/84 H Blood Pressure Location Lt brachial Lt brachial Position Sitting Sitting Respiration 16 12 Pulse 75 74 Pulse Source Monitor Monitor Temp 98.5 F Temp Source Oral Pulse Oximetry (%) 97 Oxygen Delivery Method room air Intake Visit Reasons: L pointer finger cut/ [employer]ERSON [employer]USH Allergies No Known Allergies Allergy (Unverified 07/17/24 10:12) [facility] Medical History Asthma Essential hypertension Hypoxemia GLADYS on CPAP Surgical History History of open reduction and internal fixation (ORIF) procedure History of tubal ligation Family History Father Autoimmune disease Mother CVA (cerebral vascular accident) Seizures Grandfather Diabetes Prostate cancer CHF (congestive heart failure) Grandmother CHF (congestive heart failure) Social History Smoking Status: Former smoker how long ago did patient quit smokin alcohol intake: never substance use type: does not use caffeine: Yes Type: carbonated beverages Number of servings: 1 HPI HPI Details: YESSI MOREIRA, is a 49 F who presents to the office today for initial evaluation of a laceration to the left index finger. Patient states that she cut her finger on a piece of metal on a bathroom stall door. This occurred at work just prior to coming to the office today. She denies numbness, tingling or loss range of motion. She is unaware of her last tetanus immunization. She does state cleaning the cat prior to coming to the office. No other associated symptoms or alleviating/aggravating factors. ROS Const Constitutional: No other (6 system ROS completed with pertinent findings in the HPI otherwise normal.) Exam Const General: cooperative and healthy appearing Skin General: no rashes or lesions noted (See exception in extremities exam) Neuro General: patient alert Extrem General: full ROM and capillary refill normal Other: Superficial laceration to the proximal left index finger that measured 3 cm. The wound was prepped. The wound was irrigated and explored. There were no foreign bodies, tendon injuries or deep tissue involvement. The wound was reapproximated using Dermabond. There was excellent reapproximation of the wound edges. The patient tolerated the procedure without complication. Psych Appearance: grossly normal Mental Status: mental status grossly normal Immunizations Boostrix Tdap 2.5 Lf unit-8 mcg-5 Lf/0.5 mL intramuscular syringe Performing Provider: SAMRA Smith Performing Location: [facility] Administered by: Cassie Christianson on 07/17/24 10:19 Dose Route Admin Location Dispensed Lot Number Expiration Date [facility] Man ufacturer 0.5 mL IM Left Deltoid 0.5 mL CX4HL 08/01/26 [id number] Carmine VIS Given Date VIS Provided VIS Publication Date 07/17/24 Single Vaccine 21 Eligibility Eligibility Date Funding Source Not Applicable Coding Level of Care Code Off vis,new,level 4 Diagnoses Laceration of left index finger S61.211A Assessment and Plan Assessment and Plan (1) Laceration of left index finger: Status: Acute Plan: First report of injury form as well as [employer] filled out releasing patient back to work today without restrictions. See wound repair above. Patient advised of ongoing wound management. Patient advised to keep the area clean and dry at all times. Advised she no longer needs to follow-up here unless she should have exacerbation of symptoms or new concerns. Patient verbalized understanding and agreement with all the above. Orders: Orders Tdap Immunization Today Z23 - Encounter for immunization 07/17/24 1053 Date Kennedy CABRALES Cosigner Signature: Date (if applicable) CC: Normal [facility] CBC W/Diff, Automatedon 09-2 Absolute Lymph 1.83 X10 3/uL Normal 0.83-4.51 [facility] Comment on above: Performed By: #### L 100.0100, L500.4100, L501.9520, L400.0001, L502.0250, L500.4050 #### [facility] [address] [place], [address] Absolute Neut 4.2 X10 3/uL Normal 2.0-7.7 [facility] Comment on above: Performed By: #### L 100.0100, L500.4100, L501.9520, L400.0001, L502.0250, L500.4050 #### [facility] [address] [place], [address] Basophils/100 WBC (Bld) 0.3 % Normal 0-1 [facility] Comment on above: Performed By: #### L 100.0100, L500.4100, L501.9520, L400.0001, L502.0250, L500.4050 #### [facility] [address] [place], [address] Eosinophils/100 WBC (Bld) 1.5 % Normal 0-5 [facility] Comment on above: Performed By: #### L 100.0100, L500.4100, L501.9520, L400.0001, L502.0250, L500.4050 #### [facility] [address] [place], [address] Erythrocyte distribution width (RBC) [Ratio] 14.8 % High 11.6-14.6 [facility] Comment on above: Performed By: #### L 100.0100, L500.4100, L501.9520, L400.0001, L502.0250, L500.4050 #### [facility] [address] [place], [address] Hematocrit (Bld) [Volume fraction] 38.0 % Normal 37-47 [facility] Comment on above: Performed By: #### L 100.0100, L500.4100, L501.9520, L400.0001, L502.0250, L500.4050 #### [facility] [address] [place], [address] Hemoglobin (Bld) [Mass/Vol] 12.3 g/dL Normal 12.0-15.0 [facility] Comment on above: Performed By: #### L 100.0100, L500.4100, L501.9520, L400.0001, L502.0250, L500.4050 #### [facility] [address] [place], [address] IG% 0.300 Normal 0.0-0.9 [facility] Comment on above: Result Comment: IG% - Immature Granulocytes (promyelocytes, myelocytes and metamyelocytes) > 1% indicates that a LEFT SHIFT is Present. Performed By: #### L 100.0100, L500.4100, L501.9520, L400.0001, L502.0250, L500.4050 #### [facility] [address] [place], [address] Lymphocytes/100 WBC (Bld) 27.4 % Normal 19-41 [facility] Comment on above: Performed By: #### L 100.0100, L500.4100, L501.9520, L400.0001, L502.0250, L500.4050 #### [facility] [address] [place], [address] MCH (RBC) [Entitic mass] 29.1 pg Normal 27.0-32.0 [facility] Comment on above: Performed By: #### L 100.0100, L500.4100, L501.9520, L400.0001, L502.0250, L500.4050 #### [facility] [address] [place], [address] MCHC (RBC) [Mass/Vol] 32.4 g/dL Normal 32-36 [facility] Comment on above: Performed By: #### L 100.0100, L500.4100, L501.9520, L400.0001, L502.0250, L500.4050 #### [facility] [address] [place], [address] MCV (RBC) [Entitic vol] 90.0 fL Normal 81-99 [facility] Comment on above: Performed By: #### L 100.0100, L500.4100, L501.9520, L400.0001, L502.0250, L500.4050 #### [facility] [address] [place], [address] Monocytes/100 WBC (Bld) 6.9 % Normal 0-10 [facility] Comment on above: Performed By: #### L 100.0100, L500.4100, L501.9520, L400.0001, L502.0250, L500.4050 #### [facility] [address] [place], [address] Neutrophils/100 WBC (Bld) 63.6 % Normal 47-70 [facility] Comment on above: Performed By: #### L 100.0100, L500.4100, L501.9520, L400.0001, L502.0250, L500.4050 #### [facility] [address] [place], [address] Nucleated RBC (Bld) [#/Vol] 0 10*3/uL Normal 0-5 [facility] Comment on above: Performed By: #### L 100.0100, L500.4100, L501.9520, L400.0001, L502.0250, L500.4050 #### [facility] [address] [place], [address] Platelet mean volume (Bld) [Entitic vol] 10.6 fL Normal 6.2-12.0 [facility] Comment on above: Performed By: #### L 100.0100, L500.4100, L501.9520, L400.0001, L502.0250, L500.4050 #### [facility] [address] [place], [address] Platelets (Bld) [#/Vol] 232 10*3/uL Normal 150-450 [facility] Comment on above: Performed By: #### L 100.0100, L500.4100, L501.9520, L400.0001, L502.0250, L500.4050 #### [facility] [address] [place], [address] RBC (Bld) [#/Vol] 4.22 10*6/uL Normal 4.2-5.4 [facility] Comment on above: Performed By: #### L 100.0100, L500.4100, L501.9520, L400.0001, L502.0250, L500.4050 #### [facility] [address] [place], [address] RDW SD 47.7 fl High 35.1-43.9 [facility] Comment on above: Performed By: #### L 100.0100, L500.4100, L501.9520, L400.0001, L502.0250, L500.4050 #### [facility] [address] [place], [address] WBC (Bld) [#/Vol] 6.7 10*3/uL Normal 4.4-11.0 [facility] Comment on above: Performed By: #### L 100.0100, L500.4100, L501.9520, L400.0001, L502.0250, L500.4050 #### [facility] [address] [place], [address] Comprehensive Metabolic Prof ilon 06-20-2024 Albumin [Mass/Vol] 3.7 g/dL Normal 3.2-5.0 [facility] Comment on above: Order Comment: UAC Performed By: #### L 100.0100, L500.4100, L501.9520, L400.0001, L502.0250, L500.4050 #### [facility] [address] [place], [address] Albumin/Globulin [Mass ratio] 0.9 {ratio} Normal 0.9-2.4 [facility] Comment on above: Order Comment: UAC Performed By: #### L 100.0100, L500.4100, L501.9520, L400.0001, L502.0250, L500.4050 #### [facility] [address] [place], [address] ALK P 59 U/L Normal 45-117 [facility] Comment on above: Order Comment: UAC Performed By: #### L 100.0100, L500.4100, L501.9520, L400.0001, L502.0250, L500.4050 #### [facility] [address] [place], [address] ALT [Catalytic activity/Vol] 22 U/L Normal 13-56 [facility] Comment on above: Order Comment: UAC Performed By: #### L 100.0100, L500.4100, L501.9520, L400.0001, L502.0250, L500.4050 #### [facility] [address] [place], [address] AST [Catalytic activity/Vol] 14 U/L Low 15-37 [facility] Comment on above: Order Comment: UAC Performed By: #### L 100.0100, L500.4100, L501.9520, L400.0001, L502.0250, L500.4050 #### [facility] [address] [place], [address] Bilirubin [Mass/Vol] 0.70 mg/dL Normal 0.20-1.00 [facility] Comment on above: Order Comment: UAC Result Comment: For patients on eltrombopag therapy, use of Dimension Koppel TBIL is not recommended. Performed By: #### L 100.0100, L500.4100, L501.9520, L400.0001, L502.0250, L500.4050 #### [facility] [address] [place], [address] BUN/CRE 20.4 RATIO High 10-20 [facility] Comment on above: Order Comment: UAC Performed By: #### L 100.0100, L500.4100, L501.9520, L400.0001, L502.0250, L500.4050 #### [facility] [address] [place], [address] CA,Total 9.3 mg/dL Normal 8.5-10.1 [facility] Comment on above: Order Comment: UAC Performed By: #### L 100.0100, L500.4100, L501.9520, L400.0001, L502.0250, L500.4050 #### [facility] [address] [place], [address] Chloride [Moles/Vol] 105 mmol/L Normal 98-107 [facility] Comment on above: Order Comment: UAC Performed By: #### L 100.0100, L500.4100, L501.9520, L400.0001, L502.0250, L500.4050 #### [facility] [address] [place], [address] CO2 [Moles/Vol] 28.0 mmol/L Normal 21.0-32.0 [facility] Comment on above: Order Comment: UAC Performed By: #### L 100.0100, L500.4100, L501.9520, L400.0001, L502.0250, L500.4050 #### [facility] [address] [place], [address] Creatinine [Mass/Vol] 0.59 mg/dL Normal 0.55-1.02 [facility] Comment on above: Order Comment: UAC Result Comment: The validity of the calculated GFR GFRAA in patients over 70 years has not been determined. Clinical correlation is essential. Performed By: #### L 100.0100, L500.4100, L501.9520, L400.0001, L502.0250, L500.4050 #### [facility] [address] [place], [address] EST GFR - AA 139 mL/min Normal >60 [facility] Comment on above: Order Comment: UAC Result Comment: Afri can Lithuanian GFR Calc Performed By: #### L 100.0100, L500.4100, L501.9520, L400.0001, L502.0250, L500.4050 #### [facility] [address] [place], [address] GAP 6 Normal 5-15 [facility] Comment on above: Order Comment: UAC Performed By: #### L 100.0100, L500.4100, L501.9520, L400.0001, L502.0250, L500.4050 #### [facility] [address] [place], [address] GFR/1.73 sq M.predicted among non-blacks MDRD (S/P/Bld) [Vol rate/Area] 115 mL/min/{1.73_m2} Normal >60 [facility] Comment on above: Order Comment: UAC Result Comment: Non- GFR Calc Performed By: #### L 100.0100, L500.4100, L501.9520, L400.0001, L502.0250, L500.4050 #### [facility] [address] [place], [address] Globulin (S) [Mass/Vol] 4.1 g/dL Normal 2.2-4.2 [facility] Comment on above: Order Comment: UAC Performed By: #### L 100.0100, L500.4100, L501.9520, L400.0001, L502.0250, L500.4050 #### [facility] [address] [place], [address] Glucose [Mass/Vol] 102 mg/dL Normal 74-106 [facility] Comment on above: Order Comment: UAC Result Comment: Fast ing Glucose result from 100 to 125 mg/dL suggests IMPAIRED HOMEOSTASIS per A.D.A. criteria. Performed By: #### L 100.0100, L500.4100, L501.9520, L400.0001, L502.0250, L500.4050 #### [facility] [address] [place], [address] Potassium [Moles/Vol] 3.8 mmol/L Normal 3.5-5.1 [facility] Comment on above: Order Comment: UAC Performed By: #### L 100.0100, L500.4100, L501.9520, L400.0001, L502.0250, L500.4050 #### [facility] [address] [place], [address] Sodium [Moles/Vol] 139 mmol/L Normal 136-145 [facility] Comment on above: Order Comment: UAC Performed By: #### L 100.0100, L500.4100, L501.9520, L400.0001, L502.0250, L500.4050 #### [facility] [address] [place], [address] T PROT 7.8 g/dL Normal 6.4-8.2 [facility] Comment on above: Order Comment: UAC Performed By: #### L 100.0100, L500.4100, L501.9520, L400.0001, L502.0250, L500.4050 #### [facility] [address] [place], [address] Urea nitrogen [Mass/Vol] 12 mg/dL Normal 7-18 [facility] Comment on above: Order Comment: UAC Performed By: #### L 100.0100, L500.4100, L501.9520, L400.0001, L502.0250, L500.4050 #### [facility] [address] [place], [address] Lipid Profileon 06-20-2024 Cholesterol [Mass/Vol] 196 mg/dL Normal 200 [facility] Comment on above: Order Comment: UAC Result Comment: <200 mg/dL Desirable 200-240 mg/dL Borderline >240 mg/dL High Risk Performed By: #### L 100.0100, L500.4100, L501.9520, L400.0001, L502.0250, L500.4050 #### [facility] [address] [place], [address] Cholesterol in HDL [Mass/Vol] 44 mg/dL Normal [facility] Comment on above: Order Comment: UAC Result Comment: The drugs N-Acetylcysteine and Metamizole may falsely depress this assay. Reference Range HDL <40 mg/dL Low HDL Cholesterol HDL >or= 60 mg/dL High HDL Cholesterol Performed By: #### L 100.0100, L500.4100, L501.9520, L400.0001, L502.0250, L500.4050 #### [facility] [address] [place], [address] Cholesterol in LDL [Mass/Vol] 140 mg/dL High 0-130 [facility] Comment on above: Order Comment: UAC Performed By: #### L 100.0100, L500.4100, L501.9520, L400.0001, L502.0250, L500.4050 #### [facility] [address] [place], [address] Cholesterol in VLDL [Mass/Vol] 12 mg/dL Normal 5-40 [facility] Comment on above: Order Comment: UAC Performed By: #### L 100.0100, L500.4100, L501.9520, L400.0001, L502.0250, L500.4050 #### [facility] [address] [place], [address] Triglyceride [Mass/Vol] 60 mg/dL Normal [facility] Comment on above: Order Comment: UAC Result Comment: The drugs N-Acetylcysteine and Metamizole may falsely depress this assay. Serum Triglycerides Reference Interval Normal <150 mg/dL Borderline high 150 - 199 mg/dL High 200 - 499 mg/dL Very High > or = 500 mg/dL Performed By: #### L 100.0100, L500.4100, L501.9520, L400.0001, L502.0250, L500.4050 #### [facility] [address] [place], [address] Microalb:Creat Ratio,Random URon 06-20-2024 Creatinine [Mass/Vol] 25.60 mg/dL Normal NO RAN GE EST. [facility] Comment on above: Performed By: #### L 100.0100, L500.4100, L501.9520, L400.0001, L502.0250, L500.4050 #### [facility] [address] [place], [address] MALB:CRE TNP Normal <30 mg/g CRE [facility] Comment on above: Performed By: #### L 100.0100, L500.4100, L501.9520, L400.0001, L502.0250, L500.4050 #### [facility] [address] [place], [address] MICROALBUMIN,UR < 5.0 Normal NO RANGE EST. [facility] Comment on above: Performed By: #### L 100.0100, L500.4100, L501.9520, L400.0001, L502.0250, L500.4050 #### [facility] [address] [place], [address] Thyroid Stim Hormone (TSH)on 06-20-2024 TSH 1.540 uIU/mL Normal 0.358-3.74 0 [facility] Comment on above: Order Comment: UAC Performed By: #### L 100.0100, L500.4100, L501.9520, L400.0001, L502.0250, L500.4050 #### [facility] [address] [place], [address] Urinalysis, Completeon 06-20 BACTERIA RARE Normal None Seen [facility] Comment on above: Order Comment: UAC CLEAN CATCH Performed By: #### L 100.0100, L500.4100, L501.9520, L400.0001, L502.0250, L500.4050 #### [facility] [address] [place], [address] EPI,SQUAMOUS 0-5 SEEN Normal 5-10 [facility] Comment on above: Order Comment: UAC CLEAN CATCH Performed By: #### L 100.0100, L500.4100, L501.9520, L400.0001, L502.0250, L500.4050 #### [facility] [address] [place], [address] Mucus Ql (Urine sed) 0 SEEN Normal [facility] Comment on above: Order Comment: UAC CLEAN CATCH Performed By: #### L 100.0100, L500.4100, L501.9520, L400.0001, L502.0250, L500.4050 #### [facility] [address] [place], [place], [id number] [phone]) RBC 0 SEEN Normal 0-5 [facility] Comment on above: Order Comment: UAC CLEAN CATCH Performed By: #### L 100.0100, L500.4100, L501.9520, L400.0001, L502.0250, L500.4050 #### [facility] [address] [place], [place], [id number] ([phone]) WBC 0 SEEN Normal 0-5 [facility] Comment on above: Order Comment: UAC CLEAN CATCH Performed By: #### L 100.0100, L500.4100, L501.9520, L400.0001, L502.0250, L500.4050 #### [facility] [address] [place], [place], [id number] [phone] Absolute lymphocyte countOrd ered By: Evangelina Irby on 12-07-2023 Lymphocytes Auto (Unsp spec) [#/Vol] 1.70 10*3/uL 0.83-4.51 [facility] Automated lymphocyte count a s percentage of total leukocytesOrdered By: Evangelina Irby on 12-07-2023 Lymphocytes/100 WBC Auto (Unsp spec) 19.6 % 19-41 [facility] Basophil percentageOrdered B y: Evangelina Irby on 12-07-2023 Basophil percentage 0 SEEN /hpf 0-5 [facility] Basophils/100 WBC (Bld) 0.2 % 0-1 [facility] Bilirubin [Mass/Vol] 0.50 mg/dL 0.20-1.00 [facility] Comment on above: For patients on eltr ombopag therapy, use of Dimension Koppel TBIL is not recommended. Chloride [Moles/Vol] 106 mmol/L 98-107 [facility] Cholesterol [Mass/Vol] 170 mg/dL <200 [facility] Comment on above: <200 mg/dL Desirable 200-240 mg/dL Borderline >240 mg/dL High Risk Eosinophils/100 WBC (Bld) 1.4 % 0-5 [facility] Glucose [Mass/Vol] 117 mg/dL 74-106 [facility] Comment on above: Fasting Glucose resu lt from 100 to 125 mg/dL suggests IMPAIRED HOMEOSTASIS per A.D.A. criteria. Hemoglobin (Bld) [Mass/Vol] 12.5 g/dL 12.0-15.0 [facility] Monocytes/100 WBC (Bld) 7.4 % 0-10 [facility] Neutrophils (Bld) [#/Vol] 6.2 10*3/uL 2.0-7.7 [facility] Neutrophils/100 WBC (Bld) 71.1 % 47-70 [facility] Potassium [Moles/Vol] 3.9 mmol/L 3.5-5.1 [facility] Protein [Mass/Vol] 7.7 g/dL 6.4-8.2 [facility] Sodium [Moles/Vol] 136 mmol/L 136-145 [facility] Triglyceride [Mass/Vol] 65 mg/dL <199 [facility] Comment on above: The drugs N-Acetylcy steine and Metamizole may falsely depress this assay.Serum Triglycerides Reference Interval Normal <150 mg/dL Borderline high 150 - 199 mg/dL High 200 - 499 mg/dL Very High > or = 500 mg/dL WBC (Bld) [#/Vol] 8.7 10*3/uL 4.4-11.0 [facility] Bilirubin Test strip Ql (U)O rdered By: Evangelina Irby on 12-07-2023 Bilirubin Ql (U) Negative Negative [facility] Determination of erythrocyte mean corpuscular volume (MCV)Ordered By: Evangelina Irby on 12-07-2023 MCV (RBC) [Entitic vol] 90.2 fL 81-99 [facility] Erythrocyte distribution wid th ratioOrdered By: Evangelina Irby on 12-07-2023 Erythrocyte distribution width (RBC) [Ratio] 14.5 % 11.6-14.6 [facility] Erythrocyte distribution wid th standard deviationOrdered By: Evangelina Irby on 12-07-2023 Erythrocyte distribution width (RBC) [Entitic vol] 47.5 fL 35.1-43.9 [facility] Hematocrit Auto (Bld) [Volum e fraction]Ordered By: Evangelina Irby on 12-07-2023 Hematocrit (Bld) [Volume fraction] 37.9 % 37-47 [facility] Immature granulocytes/100 WB C Auto (Bld)Ordered By: vEangelina Irby on 12-07-2023 Immature granulocytes/100 WBC (Bld) 0.300 % 0.0-0.9 [facility] Comment on above: IG% - Immature Granu locytes (promyelocytes, myelocytes and metamyelocytes) > 1% indicates that a LEFT SHIFT is Present. Ketones Test strip Ql (U)Ord ered By: Evangelina Irby on 12-07-2023 Ketones Ql (U) Negative Negative [facility] - Chemistry and C hemistry - challengeOrdered By: Evangelina Irby on 12-07-2023 Albumin/Globulin [Mass ratio] 0.8 {ratio} 0.9-2.4 [facility] ALP [Catalytic activity/Vol] 70 U/L 45-117 [facility] ALT [Catalytic activity/Vol] 30 U/L 13-56 [facility] Cholesterol in HDL [Mass/Vol] 34 mg/dL >40 [facility] Comment on above: The drugs N-Acetylcy steine and Metamizole may falsely depress this assay. Reference Range HDL <40 mg/dL Low HDL Cholesterol HDL >or= 60 mg/dL High HDL Cholesterol Cholesterol in LDL [Mass/Vol] 123 mg/dL 0-130 [facility] CO2 [Moles/Vol] 26.0 mmol/L 21.0-32.0 [facility] Globulin (S) [Mass/Vol] 4.2 g/dL 2.2-4.2 [facility] Urea nitrogen/Creatinine [Mass ratio] 12.6 mg/mg 10-20 [facility] - Hematology and Cell countsOrdered By: Evangelina Irby on 12-07-2023 MCH (RBC) [Entitic mass] 29.8 pg 27.0-32.0 [facility] MCHC (RBC) [Mass/Vol] 33.0 g/dL 32-36 [facility] Nucleated RBC/100 WBC (Bld) [Ratio] 0 % 0-5 [facility] Platelet mean volume (Bld) [Entitic vol] 10.6 fL 6.2-12.0 [facility] Platelets (Bld) [#/Vol] 239 10*3/uL 150-450 [facility] Mucus LM Ql (Urine sed)Order ed By: Evangelina Irby on 12-07-2023 Mucus Ql (Urine sed) 0 SEEN /hpf [facility] Nitrite Test strip Ql (U)Ord ered By: Evangelina Irby on 12-07-2023 Nitrite Ql (U) Negative Negative [facility] No Panel InformationOrdered By: Evangelina Irby on 12-07-2023 Estimated GFR (MDRD) Amer 127 mL/min >60 [facility] Comment on above: GFR Calc Estimated GFR (MDRD) Non-Af Amer 105 mL/min >60 [facility] Comment on above: Non- GFR Calc Urine Microalbumin/Creatinin e Ratio TNP [facility] Comment on above: Test not performed Urine RBC 0 SEEN /hpf 0-5 [facility] VLDL Cholesterol 13 mg/dL 5-40 [facility] Protein Test strip Ql (U)Ord ered By: Evangelina Irby on 12-07-2023 Protein Ql (U) Negative Negative [facility] RBC Auto (Bld) [#/Vol]Ordere d By: Evangelina Irby on 12-07-2023 RBC (Bld) [#/Vol] 4.20 10*6/uL 4.2-5.4 [facility] Serum or plasma calcium avis urement (mass/volume)Ordered By: Evangelina Irby on 12-07-2023 Calcium [Mass/Vol] 8.9 mg/dL 8.5-10.1 [facility] Serum or plasma creatinine m easurement (mass/volume)Ordered By: Evangelina Irby on 12-07-2023 Creatinine [Mass/Vol] 0.64 mg/dL 0.55-1.02 [facility] Comment on above: The validity of the calculated GFR & GFRAA in patients over 70 years has not been determined. Clinical correlation is essential. Serum or plasma urea nitroge n measurement (mass/volume)Ordered By: Evangelina Irby on 12-07-2023 Urea nitrogen [Mass/Vol] 8 mg/dL 7-18 [facility] Squamous epithelial cells de tection in urine sediment by light microscopyOrdered By: Evangelina Irby on 12-07-2023 Epithelial cells.squamous LM Ql (Urine sed) 0-5 SEEN /hpf 5-10 [facility] Thin prep Papanicolaou smear with manual screeningOrdered By: Evangelina Irby on 12-07-2023 Thin prep Papanicolaou smear with manual screening 3.5 g/dL 3.2-5.0 [facility] Thin prep Papanicolaou smear with manual screening 18 U/L 15-37 [facility] Thin prep Papanicolaou smear with manual screening 4 5-15 [facility] Thin prep Papanicolaou smear with manual screening < 5.0 mg/L NO RANGE EST. [facility] Urine blood detectionOrdered By: Evangelina Irby on 12-07-2023 RBC Ql (U) Negative Negative [facility] Urine clarityOrdered By: Rachel Irby on 12-07-2023 Clarity (U) Clear Clear [facility] Urine color determinationOrd ered By: Evangelina Irby on 12-07-2023 Color (U) Yellow Yellow [facility] Urine creatinine measurement (mass/volume)Ordered By: Evangelina Irby on 12-07-2023 Creatinine (U) [Mass/Vol] 67.40 mg/dL NO RANGE EST. [facility] Urine glucose detectionOrder ed By: Evangelina Irby on 12-07-2023 Glucose Ql (U) Normal mg/dl Normal [facility] Urine leukocyte esterase det ection by dipstickOrdered By: Evangelina Irby on 12-07-2023 Leukocyte esterase Test strip Ql (U) 25 /ul Negative [facility] Urine pHOrdered By: Evangelina Irby on 12-07-2023 pH (U) 6.5 [pH] 5.0 - 8.0 [facility] Urine sediment bacteria coun t by microscopy (number/high power field)Ordered By: Evangelina Irby on 12-07-2023 Bacteria LM.HPF (Urine sed) [#/Area] 0 /[HPF] None Seen [facility] Urine specific gravity measu rementOrdered By: Evangelina Irby on 12-07-2023 Specific gravity (U) [Rel density] 1.010 1.002-1.03 0 [facility] Urine urobilinogen measureme ntOrdered By: Evangelina Irby on 12-07-2023 Urobilinogen Ql (U) Normal mg/dl Normal [facility] Whole blood hemoglobin A1c/t otal hemoglobin ratio (mass fraction)Ordered By: Evangelina Irby on 12-07-2023 HbA1c (Bld) [Mass fraction] 6.0 % 3.8-5.6 [facility] Comment on above: Normal < 5.7 % Predi abetic 5.7 - 6.4 % Diabetic >or= 6.5 % Please note range changes. Laboratory - Chemistry and C hemistry - challengeOrdered By: Dr. Maxwell on 03-04-2023 Natriuretic peptide B (Bld) [Mass/Vol] 17.2 pg/mL 0-100 [facility] Basophil percentageOrdered B y: Dr. Maxwell on 11-22-2022 WBC (Bld) [#/Vol] 9.4 10*3/uL 4.4-11.0 [facility] Blood erythrocytes count (nu mber/volume)Ordered By: Dr. Maxwell on 11-22-2022 RBC (Bld) [#/Vol] 4.37 10*6/uL 4.2-5.4 [facility] Blood hemoglobin measurement (mass/volume)Ordered By: Dr. Maxwell on 11-22-2022 Hemoglobin (Bld) [Mass/Vol] 13.2 g/dL 12.0-15.0 [facility] Blood platelet mean volumeOr dered By: Dr. Maxwell on 11-22-2022 Platelet mean volume (Bld) [Entitic vol] 10.9 fL 6.2-12.0 [facility] Determination of erythrocyte mean corpuscular volume (MCV)Ordered By: Dr. Maxwell on 11-22-2022 MCV (RBC) [Entitic vol] 90.6 fL 81-99 [facility] Hematocrit Auto (Bld) [Volum e fraction]Ordered By: Dr. Maxwell on 11-22-2022 Hematocrit (Bld) [Volume fraction] 39.6 % 37-47 [facility] - Chemistry and C hemistry - challengeOrdered By: Dr. Maxwlel on 11-22-2022 Natriuretic peptide B (Bld) [Mass/Vol] 12.8 pg/mL 0-100 [facility] - Hematology and Cell countsOrdered By: Dr. Maxwell on 11-22-2022 Erythrocyte distribution width (RBC) [Entitic vol] 46.1 fL 35.1-43.9 [facility] Erythrocyte distribution width (RBC) [Ratio] 13.8 % 11.6-14.6 [facility] MCH (RBC) [Entitic mass] 30.2 pg 27.0-32.0 [facility] MCHC Auto (RBC) [Mass/Vol]Or dered By: Dr. Maxwell on 11-22-2022 MCHC (RBC) [Mass/Vol] 33.3 g/dL 32-36 [facility] Platelets bldOrdered By: Dr. Maxwell on 11-22-2022 Platelets (Bld) [#/Vol] 247 10*3/uL 150-450 [facility] HPV Auto Reflex PAP (40366)O rdered By: Corrugator Supervisor on 11-02-2022 HPV Auto Reflex PAP ([id number]) SPR Normal [facility]; [facility] Work Phone: Comment on above: NEGATIVE FOR INTRAEP ITHELIAL LESION OR MALIGNANCY.Satisfactory for evaluation. Endocervical and/or squamous metaplasticcells (endocervical component) are present.Z01.419Krissy [employer] Merchandiser (ASCP) Source.............C ervixNo. of containers..01 ThinPrep VialPERFORMED BY: [employer] [id number] Information: [id number] HPV Auto Reflex PAP (03681) . Normal [facility]; [facility] Work Phone: Comment on above: Source.............C ervixNo. of containers..01 ThinPrep VialPERFORMED BY: [employer] [id number] Information: [id number] HPV Auto Reflex PAP ([id number]) PAPR Normal [facility]; [facility] Work Phone: Comment on above: The Pap smear is a s creening test designed to aid in the detection ofpremalignant and malignant conditions of the uterine cervix. It is not adiagnostic procedure and should not be used as the sole means of detectingcervical cancer. Both false-positive and false-negative reports do occur. .This liquid based ThinPrep(R) pap test was screened with theuse of an image guided system.The HPV DNA reflex criteria were not met with this specimen resulttherefore, no HPV testing was performed. . Source.............C ervixNo. of containers..01 ThinPrep VialPERFORMED BY: [employer] [address] [id number] Information: [id number] Absolute lymphocyte counton 01-27-2022 Lymphocytes Auto (Unsp spec) [#/Vol] 2.12 10*3/uL 0.83-4.51 [facility] Work Phone: Basophil percentageon 2021 Basophil percentage 0-5 SEEN /hpf [facility] Work Phone: Basophils/100 WBC (Bld) 0.3 % 0-1 [facility] Work Phone: Bilirubin [Mass/Vol] 0.40 mg/dL 0.20-1.00 [facility] Work Phone: Comment on above: For patients on eltr ombopag therapy, use of Dimension Koppel TBIL is not recommended. Chloride [Moles/Vol] 107 mmol/L 98-107 [facility] Work Phone: Cholesterol [Mass/Vol] 169 mg/dL <200 [facility] Work Phone: Comment on above: <200 mg/dL Desirable 200-240 mg/dL Borderline >240 mg/dL High Risk Eosinophils/100 WBC (Bld) 1.8 % 0-5 [facility] Work Phone: Glucose [Mass/Vol] 116 mg/dL 74-106 [facility] Work Phone: Comment on above: Fasting Glucose resu lt from 100 to 125 mg/dL suggests IMPAIRED HOMEOSTASIS per A.D.A. criteria. Neutrophils (Bld) [#/Vol] 4.7 10*3/uL 2.0-7.7 [facility] Work Phone: Neutrophils/100 WBC (Bld) 61.8 % 47-70 [facility] Work Phone: Potassium [Moles/Vol] 3.8 mmol/L 3.5-5.1 [facility] Work Phone: Protein [Mass/Vol] 7.9 g/dL 6.4-8.2 [facility] Work Phone: Sodium [Moles/Vol] 137 mmol/L 136-145 [facility] Work Phone: Triglyceride [Mass/Vol] 75 mg/dL [facility] Work Phone: Comment on above: The drugs N-Acetylcy steine and Metamizole may falsely depress this assay.Serum Triglycerides Reference Interval Normal <150 mg/dL Borderline high 150 - 199 mg/dL High 200 - 499 mg/dL Very High > or = 500 mg/dL WBC (Bld) [#/Vol] 7.6 10*3/uL 4.4-11.0 [facility] Work Phone: Bilirubin Test strip Ql (U)o n 01-27-2022 Bilirubin Ql (U) Negative Negative [facility] Work Phone: Blood erythrocytes count (nu mber/volume)on 01-27-2022 RBC (Bld) [#/Vol] 4.54 10*6/uL 4.2-5.4 [facility] Work Phone: Blood hemoglobin measurement (mass/volume)on 01-27-2022 Hemoglobin (Bld) [Mass/Vol] 13.6 g/dL 12.0-15.0 [facility] Work Phone: Blood lymphocytes/100 leukoc yteson 01-27-2022 Lymphocytes/100 WBC (Bld) 28.0 % 19-41 [facility] Work Phone: Blood monocytes/100 leukocyt eson 01-27-2022 Monocytes/100 WBC (Bld) 7.7 % 0-10 [facility] Work Phone: Blood platelet mean volumeon 01-27-2022 Platelet mean volume (Bld) [Entitic vol] 10.8 fL 6.2-12.0 [facility] Work Phone: Determination of erythrocyte mean corpuscular volume (MCV)on 01-27-2022 MCV (RBC) [Entitic vol] 89.2 fL 81-99 [facility] Work Phone: Hematocrit Auto (Bld) [Volum e fraction]on 01-27-2022 Hematocrit (Bld) [Volume fraction] 40.5 % 37-47 [facility] Work Phone: Ketones Test strip Ql (U)on 01-27-2022 Ketones Ql (U) Negative Negative [facility] Work Phone: Laboratory - Chemistry and C hemistry - challengeon 01-27-2022 ALP [Catalytic activity/Vol] 66 U/L 45-117 [facility] Work Phone: ALT [Catalytic activity/Vol] 31 U/L 13-56 [facility] Work Phone: CO2 [Moles/Vol] 26.0 mmol/L 21.0-32.0 [facility] Work Phone: Globulin (S) [Mass/Vol] 4.3 g/dL 2.2-4.2 [facility] Work Phone: Urea nitrogen/Creatinine [Mass ratio] 15.3 mg/mg 10-20 [facility] Work Phone: Laboratory - Hematology and Cell countson 01-27-2022 Erythrocyte distribution width (RBC) [Entitic vol] 44.8 fL 35.1-43.9 [facility] Work Phone: Erythrocyte distribution width (RBC) [Ratio] 13.7 % 11.6-14.6 [facility] Work Phone: Immature granulocytes/100 WBC (Bld) 0.400 % 0.0-0.9 [facility] Work Phone: Comment on above: IG% - Immature Granu locytes (promyelocytes, myelocytes and metamyelocytes) > 1% indicates that a LEFT SHIFT is Present. MCH (RBC) [Entitic mass] 30.0 pg 27.0-32.0 [facility] Work Phone: Nucleated RBC/100 WBC (Bld) [Ratio] 0 % 0-5 [facility] Work Phone: MCHC Auto (RBC) [Mass/Vol]on 01-27-2022 MCHC (RBC) [Mass/Vol] 33.6 g/dL 32-36 [facility] Work Phone: Mucus LM Ql (Urine sed)on Mucus Ql (Urine sed) 0 SEEN /hpf [facility] Work Phone: Nitrite Test strip Ql (U)on 01-27-2022 Nitrite Ql (U) Negative Negative [facility] Work Phone: No Panel Informationon 01-27 Estimated GFR (MDRD) Amer 124 mL/min >60 [facility] Work Phone: Comment on above: GFR Calc Estimated GFR (MDRD) Non-Af Amer 102 mL/min >60 [facility] Work Phone: Comment on above: Non- GFR Calc Urine Microalbumin/Creatinin e Ratio 8.2 mg/g CRE <30 [facility] Work Phone: Platelets bldon 01-27-2022 Platelets (Bld) [#/Vol] 269 10*3/uL 150-450 [facility] Work Phone: Protein Test strip Ql (U)on 01-27-2022 Protein Ql (U) 15 mg/dl Negative [facility] Work Phone: Serum or plasma albumin avis urement (mass/volume)on 01-27-2022 Albumin [Mass/Vol] 3.6 g/dL 3.2-5.0 [facility] Work Phone: Serum or plasma albumin/glob ulin mass ratioon 01-27-2022 Albumin/Globulin [Mass ratio] 0.8 {ratio} 0.9-2.4 [facility] Work Phone: Serum or plasma calcium avis urement (mass/volume)on 01-27-2022 Calcium [Mass/Vol] 8.5 mg/dL 8.5-10.1 [facility] Work Phone: Serum or plasma cholesterol in HDL measurement (mass/volume)on 01-27-2022 Cholesterol in HDL [Mass/Vol] 35 mg/dL [facility] Work Phone: Comment on above: The drugs N-Acetylcy steine and Metamizole may falsely depress this assay. Reference Range HDL <40 mg/dL Low HDL Cholesterol HDL >or= 60 mg/dL High HDL Cholesterol Serum or plasma cholesterol in VLDL measurement (mass/volume)on 01-27-2022 Cholesterol in VLDL [Mass/Vol] 15 mg/dL 5-40 [facility] Work Phone: Serum or plasma creatinine m easurement (mass/volume)on 01-27-2022 Creatinine [Mass/Vol] 0.65 mg/dL 0.55-1.02 [facility] Work Phone: Comment on above: The validity of the calculated GFR & GFRAA in patients over 70 years has not been determined. Clinical correlation is essential. Serum or plasma low density lipoprotein (LDL) cholesterol measurement (mass/volume)on 01-27-2022 Cholesterol in LDL [Mass/Vol] 119 mg/dL 0-130 [facility] Work Phone: Serum or plasma urea nitroge n measurement (mass/volume)on 01-27-2022 Urea nitrogen [Mass/Vol] 10 mg/dL 7-18 [facility] Work Phone: Squamous epithelial cells de tection in urine sediment by light microscopyon 01-27-2022 Epithelial cells.squamous LM Ql (Urine sed) 0-5 SEEN /hpf [facility] Work Phone: Thin prep Papanicolaou smear with manual screeningon 01-27-2022 Thin prep Papanicolaou smear with manual screening 16 U/L 15-37 [facility] Work Phone: Thin prep Papanicolaou smear with manual screening 4 5-15 [facility] Work Phone: Thin prep Papanicolaou smear with manual screening 15.7 mg/L NO RANGE EST. [facility] Work Phone: Urine blood detectionon - RBC Ql (U) Negative Negative [facility] Work Phone: RBC Ql (U) 0 SEEN /hpf [facility] Work Phone: Urine clarityon 01-27-2022 Clarity (U) Clear Clear [facility] Work Phone: Urine color determinationon 01-27-2022 Color (U) Yellow Yellow [facility] Work Phone: Urine creatinine measurement (mass/volume)on 01-27-2022 Creatinine (U) [Mass/Vol] 191.00 mg/dL NO RANGE EST. [facility] Work Phone: Urine glucose detectionon Glucose Ql (U) Normal mg/dl Normal [facility] Work Phone: Urine leukocyte esterase det ection by dipstickon 01-27-2022 Leukocyte esterase Test strip Ql (U) 25 /ul Negative [facility] Work Phone: Urine pHon 01-27-2022 pH (U) 7.0 [pH] [facility] Work Phone: Urine sediment bacteria coun t by microscopy (number/high power field)on 01-27-2022 Bacteria LM.HPF (Urine sed) [#/Area] 0 /[HPF] None Seen [facility] Work Phone: Urine specific gravity measu rementon 01-27-2022 Specific gravity (U) [Rel density] 1.010 [facility] Work Phone: Urobilinogen Auto test strip Ql (U)on 01-27-2022 Urobilinogen Ql (U) 1 mg/dl Normal [facility] Work Phone: CNOVon 10-10-2017 CNOV Office Visit ([facility]WSTR) Ishaan MOREIRA ([id number]) 1975 FDate Time Provider Department10/10/17 5:45 PM DOROTHY MCGOWAN ([facility] During your visit today, we recorded the following information about you: Temperature Pulse Respiration Blood pressure 97.2 degrees 84/minute 16/minute 128/88 Weight 118.8 kgDorothy Mcgowan CNP 10/10/2017 6:37 PM [facility] Yessi Moreira is a 42 year old female who presents today for CC of sorethroat and right ear pain. This started -2 to 3 day ago She is also having acough x 3 week, and had cold symptoms on and off. Symptoms are worsened bychewing and swalllowing She has tried ibuprofen without relief. Risk factorscold in past month PMH sinusitisBP 128/88 Pulse 84 Temp 36.2 ?C (97.2 ?F) (Tympanic) Resp 16 Wt 118.8kg (262 lb) SpO2 96%ALLERGIESNo Known AllergiesThere is no problem list on file for this patient.No family history on file.Social History Marital status: Spouse name: Years of education: Number of children:Social History Main Topics Smoking status: Never Smoker Smokeless status: Never UsedReview of SystemsConstitutional: Positive for chills. Negative for fever and malaise/fatigue.HENT: Positive for congestion, ear pain, sinus pain and sore throat.Respiratory: Positive for cough. Negative for sputum production, shortness ofbreath and wheezing.Cardiovascular: Negative for chest pain.Musculoskeletal: Negative for myalgias.Skin: Negative for rash.Neurological: Positive for headaches (sinus).Physical ExamConstitutional: She is well-developed, well-nourished, and in no distress.HENT:Head: Normocephalic and atraumatic.Right Ear: Ear canal normal. No tenderness. Tympanic membrane is bulging.Tympanic membrane is not injected, not erythematous and not retracted. A middleear effusion (serous) is present.Left Ear: External ear and ear canal normal. Tympanic membrane is bulging.Tympanic membrane is not injected, not erythematous and not retracted. A middleear effusion (serous) is present.Nose: Rhinorrhea present. Right sinus exhibits maxillary sinus tenderness.Right sinus exhibits no frontal sinus tenderness. Left sinus exhibits maxillarysinus tenderness. Left sinus exhibits no frontal sinus tenderness.Mouth/Throat: Uvula is midline and mucous membranes are normal. Posteriororopharyngeal erythema present. No oropharyngeal exudate, posteriororopharyngeal edema or tonsillar abscesses.Clear PNDEyes: Conjunctivae and EOM are normal. Pupils are equal, round, and reactive tolight.Neck: Normal range of motion.Cardiovascular: Normal rate, regular rhythm and normal heart sounds.Pulmonary/Chest: Effort normal and breath sounds normal. No respiratorydistress. She has no decreased breath sounds. She has no wheezes. She has norhonchi. She has no rales.Lymphadenopathy: Head (right side): No submental, no submandibular, no tonsillar, nopreauricular and no posterior auricular adenopathy present. Head (left side): No submental, no submandibular, no tonsillar, nopreauricular and no posterior auricular adenopathy present. She has no cervical adenopathy. Right cervical: No posterior cervical adenopathy present. Left cervical: No posterior cervical adenopathy present. Right: No supraclavicular adenopathy present. Left: No supraclavicular adenopathy present.Skin: Skin is warm and dry.Psychiatric: Affect normal.Nursing note and vitals reviewed.ASSESSMENT/PLAN :1. Acute non-recurrent maxillary sinusitis - ICD9: 461.0, ICD10: J01.00- Will begin treatment with Doxycline- The patient should also be given warm salt water gargles, throat lozengesand/or OTC throat spray as needed for the first 5-7 days of treatment.- Supportive care with plenty of fluids, rest, and analgesia prn.- Follow up in one week if symptoms persist or worsen.- -Increase fluid intake. Try to drink at least 8 glasses of non caffeinatedfluids daily.--Rest as much as possible.-Do the nasal saline irrigation at least 2 x day to relieve nasal mucous andcongestion: brands include Murtaza Med, Simply saline, Gordo nasal spray, or [employer] store brand one is ok.Take the entire course of antibiotics as prescribed. DO NOT stop taking itearly, even if you are feeling better.-Practice good hygiene, wash hands frequently.-Monitor for signs of worsening infection: increased temperature, pain in face,ear pain or headaches or increase in nasal congestion/mucous that is notimproving.-Educated patient on side effects of medication.- DOXYCYCLINE MONOHYDRATE 100 MG CAPSULEDiagnosis and treatment plan were discussed and questions were answered to thepatient's satisfaction. Pt acknowledged understanding of concepts and follow upplan.Specific signs and symptoms that would indicate the need for higher level ofcare were discussed in detail warranting prompt ER evaluation..Nelson Mcgowan CNP 10/10/2017 6:28 PM AddendumASSESSMENT/PLAN: 1. Acute non-recurrent maxillary sinusitis - ICD9: 461.0, ICD10: J01.00- Will begin treatment with Doxycline- The patient should also be given warm salt water gargles, throat lozengesand/or OTC throat spray as needed for the first 5-7 days of treatment.- Supportive care with plenty of fluids, rest, and analgesia prn.- Follow up in one week if symptoms persist or worsen.- -Increase fluid intake. Try to drink at least 8 glasses of non caffeinatedfluids daily.--Rest as much as possible.-Do the nasal saline irrigation at least 2 x day to relieve nasal mucous andcongestion: brands include Murtaza Med, Simply saline, Gordo nasal spray, or eventhe generic store brand one is ok.Take the entire course of antibiotics as prescribed. DO NOT stop taking itearly, even if you are feeling better.-Practice good hygiene, wash hands frequently.-Monitor for signs of worsening infection: increased temperature, pain in face,ear pain or headaches or increase in nasal congestion/mucous that is notimproving.-Educated patient on side effects of medication.- DOXYCYCLINE MONOHYDRATE 100 MG CAPSULE* Seek medical care immediately, call 911, go to ER if you have chest pain,difficulty breathing, shortness of breath, inability to swallow.Referring Provider: SELF [[id number]]Allergies As of Date: 10/10/2017(No Known Allergies)Date Reviewed: 10/10/2017Reviewed by: Dorothy E[facility]) [place] - Fully AssessedReason for Visit: Pain, Sinus [857] Cmt: sinus pressure(both ears),drainage, sore throat x 3 days Cough [28] Cmt: x 3 weeksReason For Visit History RecordedPrimary Visit Diagnosis:Acute non-recurrent maxillary sinusitis [J01.00]Order(s):doxycyc line monohydrate (MONODOX) 100 mg capsuleTake 1 capsule by mouth twice daily for 10 days.Disp: 20 capsuleRfl: 0Prescriptions as of 10/10/2017 Sig: FLUTICASONE 50 MCG/ACTUATION * Use 2 Sprays in each nostril * LORATADINE 10 MG TABLET Take 1 tablet by mouth once d* DOXYCYCLINE MONOHYDRATE 100 M* Take 1 capsule by mouth twice*Problem List As Of Date: 10/10/2017(None) Other instructions from your clinician: ASSESSMENT/PLAN: 1. Acute non-recurrent maxillary sinusitis - ICD9: 461.0, ICD10: J01.00 - Will begin treatment with Doxycline - The patient should also be given warm salt water gargles, throat lozenges and/or OTC throat spray as needed for the first 5-7 days of treatment. - Supportive care with plenty of fluids, rest, and analgesia prn. - Follow up in one week if symptoms persist or worsen. - -Increase fluid intake. Try to drink at least 8 glasses of non caffeinated fluids daily. --Rest as much as possible. -Do the nasal saline irrigation at least 2 x day to relieve nasal mucous and congestion: brands include Murtaza Med, Simply saline, Gordo nasal spray, or even the generic store brand one is ok. Take the entire course of antibiotics as prescribed. DO NOT stop taking it early, even if you are feeling better. -Practice good hygiene, wash hands frequently. -Monitor for signs of worsening infection: increased temperature, pain in face, ear pain or headaches or increase in nasal congestion/mucous that is not improving. -Educated patient on side effects of medication. - DOXYCYCLINE MONOHYDRATE 100 MG CAPSULE * Seek medical care immediately, call 911, go to ER if you have chest pain, difficulty breathing, shortness of breath, inability to swallow.Prescriptions ordered this encounter Disp Refills Start End DOXYCYCLINE MONOHYDRATE 100 MG CAPSU* 20 c* 0 10/10/2017 10/20/2017 Route: ORAL Sig: Take 1 capsule by mouth twice daily for 10 days. Status:Closed by DOROTHY MCGOWAN CNP on 10/10/17 [facility] PROGRESSon 10-10-2017 PROGRESS HNO ID: [id number]: Dorothy Spence) Haydenervice: (none)Author Type: Nurse PractitionerType: Progress NotesFiled: 10/10/2017 6:37 PMNote Text:HPIHPI Yessi Moreira is a 42 year old female who presents today for CC ofsore throat and right ear pain. This started -2 to 3 day ago She isalso having a cough x 3 week, and had cold symptoms on and off. Symptomsare worsened by chewing and swalllowing She has tried ibuprofen withoutrelief. Risk factors cold in past month PMH sinusitisBP 128/88 Pulse 84 Temp 36.2 ?C (97.2 ?F) (Tympanic) Resp 16 Wt118.8 kg (262 lb) SpO2 96%ALLERGIESNo Known AllergiesThere is no problem list on file for this patient.No family history on file.Social History Marital status: Spouse name: Years of education: Number of children:Social History Main Topics Smoking status: Never Smoker Smokeless status: Never UsedReview of SystemsConstitutional: Positive for chills. Negative for fever andmalaise/fatigue.HENT: Positive for congestion, ear pain, sinus pain and sore throat.Respiratory: Positive for cough. Negative for sputum production, shortnessof breath and wheezing.Cardiovascular: Negative for chest pain.Musculoskeletal: Negative for myalgias.Skin: Negative for rash.Neurological: Positive for headaches (sinus).Physical ExamConstitutional: She is well-developed, well-nourished, and in no distress.HENT:Head: Normocephalic and atraumatic.Right Ear: Ear canal normal. No tenderness. Tympanic membrane is bulging.Tympanic membrane is not injected, not erythematous and not retracted. Amiddle ear effusion (serous) is present.Left Ear: External ear and ear canal normal. Tympanic membrane is bulging.Tympanic membrane is not injected, not erythematous and not retracted. Amiddle ear effusion (serous) is present.Nose: Rhinorrhea present. Right sinus exhibits maxillary sinus tenderness.Right sinus exhibits no frontal sinus tenderness. Left sinus exhibitsmaxillary sinus tenderness. Left sinus exhibits no frontal sinustenderness.Mouth/Th roat: Uvula is midline and mucous membranes are normal. Posteriororopharyngeal erythema present. No oropharyngeal exudate, posteriororopharyngeal edema or tonsillar abscesses.Clear PNDEyes: Conjunctivae and EOM are normal. Pupils are equal, round, andreactive to light.Neck: Normal range of motion.Cardiovascular: Normal rate, regular rhythm and normal heart sounds.Pulmonary/Chest: Effort normal and breath sounds normal. No respiratorydistress. She has no decreased breath sounds. She has no wheezes. She hasno rhonchi. She has no rales.Lymphadenopathy: Head (right side): No submental, no submandibular, no tonsillar, nopreauricular and no posterior auricular adenopathy present. Head (left side): No submental, no submandibular, no tonsillar, nopreauricular and no posterior auricular adenopathy present. She has no cervical adenopathy. Right cervical: No posterior cervical adenopathy present. Left cervical: No posterior cervical adenopathy present. Right: No supraclavicular adenopathy present. Left: No supraclavicular adenopathy present.Skin: Skin is warm and dry.Psychiatric: Affect normal.Nursing note and vitals reviewed.ASSESSMENT/PLAN :1. Acute non-recurrent maxillary sinusitis - ICD9: 461.0, ICD10: J01.00- Will begin treatment with Doxycline- The patient should also be given warm salt water gargles, throatlozenges and/or OTC throat spray as needed for the first 5-7 days oftreatment.- Supportive care with plenty of fluids, rest, and analgesia prn.- Follow up in one week if symptoms persist or worsen.- -Increase fluid intake. Try to drink at least 8 glasses of noncaffeinated fluids daily.--Rest as much as possible.-Do the nasal saline irrigation at least 2 x day to relieve nasal mucousand congestion: brands include Murtaza Med, Simply saline, Gordo nasal spray,or even the generic store brand one is ok.Take the entire course of antibiotics as prescribed. DO NOT stop taking itearly, even if you are feeling better.-Practice good hygiene, wash hands frequently.-Monitor for signs of worsening infection: increased temperature, pain inface, ear pain or headaches or increase in nasal congestion/mucous that isnot improving.-Educated patient on side effects of medication.- DOXYCYCLINE MONOHYDRATE 100 MG CAPSULEDiagnosis and treatment plan were discussed and questions were answered tothe patient's satisfaction. Pt acknowledged understanding of concepts andfollow up plan.Specific signs and symptoms that would indicate the need for higher levelof care were discussed in detail warranting prompt ER evaluation..me [facility] CNOVon 09-29-2017 CNOV Office Visit ([facility]) Ishaan MOREIRA ([id number]) 1975 FDate Time Provider Department09/29/17 1:30 PM GELA GOMEZ ([place]) [facility] During your visit today, we recorded the following information about you: Temperature Pulse Respiration Blood pressure 97.5 degrees 78/minute 12/minute 140/96 Weight 117.5 kgGela Gomez CNP 09/29/2017 1:55 PM SignedPatient is a 42 year old female presenting with congestion. The history isprovided by the patient (thick mucus, headache, stuffy nose since saturday onlytried 1 dose of mucinex. ).Nasal CongestionAssociated symptoms include congestion and headaches. Pertinent negativesinclude no chills, coughing, ear pain, shortness of breath or sore throat.Review of SystemsConstitutional: Negative for chills and fever.HENT: Positive for congestion and sinus pain. Negative for ear pain and sorethroat.Respiratory: Negative for cough and shortness of breath.Neurological: Positive for headaches.Physical ExamConstitutional: She is oriented to person, place, and time and well-developed,well-nour ished, and in no distress. Vital signs are normal.BP 140/96 Pulse 78 Temp 36.4 ?C (97.5 ?F) (Tympanic) Resp 12 Wt 117.5kg (259 lb)HENT:Right Ear: A middle ear effusion is present.Left Ear: A middle ear effusion is present.Mouth/Throat: Oropharynx is clear and moist and mucous membranes are normal.Cardiovascular: Normal rate and regular rhythm.Neurological: She is oriented to person, place, and time.ASSESSMENT/PLAN:1. Upper respiratory virus - ICD9: 465.9, ICD10: J06.9, B97.89- Discussed viral etiology and rationale for treatment.- Symptomatic treatment with prn analgesia- Supportive care with fluids and rest- The patient may also use OTC cough and cold meds as needed and warm saltwater gargles, throat lozenges and/or OTC throat spray as needed.- FLUTICASONE 50 MCG/ACTUATION NASAL SPRAY,SUSPENSION- LORATADINE 10 MG TABLETFollow up with primary care physician in 3-5 days if symptoms persist orWorsenChira Gomez CNPReferring Provider: SELF [[id number]]Allergies As of Date: 09/29/2017(No Known Allergies)Date Reviewed: 09/29/2017Reviewed by: Ekaterina Denson LPN - Fully AssessedReason for Visit: Nasal Congestion [235] Cmt: X 3 dayPrimary Visit Diagnosis:Upper respiratory virus [J06.9, B97.89]Order(s):fluticas one (FLONASE) 50 mcg/actuation nasal sprayUse 2 Sprays in each nostril once daily. Rinse mouth after use.Disp: 1 BottleRfl: 0 loratadine (CLARITIN) 10 mg tabletTake 1 tablet by mouth once daily.Disp: Rfl:Prescriptions as of 09/29/2017 Sig: FLUTICASONE 50 MCG/ACTUATION * Use 2 Sprays in each nostril * LORATADINE 10 MG TABLET Take 1 tablet by mouth once d*Problem List As Of Date: 09/29/2017(None)Prescrip tions ordered this encounter Disp Refills Start End FLUTICASONE 50 MCG/ACTUATION NASAL S* 1 Rafy* 0 09/29/2017 Route: EACH NOSTRIL Sig: Use 2 Sprays in each nostril once daily. Rinse mouth after use. LORATADINE 10 MG TABLET 09/29/2017 Class: OTC Route: ORAL Sig: Take 1 tablet by mouth once daily. Status:Closed by GELA GOMEZ CNP on 09/29/17 [facility] PROGRESSon 09-29-2017 PROGRESS HNO ID: [id number]: Gela ([place]orena) Tigist: (none)Author Type: Nurse PractitionerType: Progress NotesFiled: 09/29/2017 1:55 PMNote Text:Patient is a 42 year old female presenting with congestion. The history isprovided by the patient (thick mucus, headache, stuffy nose since saturdayonly tried 1 dose of mucinex. ).Nasal CongestionAssociated symptoms include congestion and headaches. Pertinent negativesinclude no chills, coughing, ear pain, shortness of breath or sore throat.Review of SystemsConstitutional: Negative for chills and fever.HENT: Positive for congestion and sinus pain. Negative for ear pain andsore throat.Respiratory: Negative for cough and shortness of breath.Neurological: Positive for headaches.Physical ExamConstitutional: She is oriented to person, place, and time andwell-developed, well-nourished, and in no distress. Vital signs arenormal.BP 140/96 Pulse 78 Temp 36.4 ?C (97.5 ?F) (Tympanic) Resp 12 Wt117.5 kg (259 lb)HENT:Right Ear: A middle ear effusion is present.Left Ear: A middle ear effusion is present.Mouth/Throat: Oropharynx is clear and moist and mucous membranes arenormal.Cardiovascular : Normal rate and regular rhythm.Neurological: She is oriented to person, place, and time.ASSESSMENT/PLAN:1. Upper respiratory virus - ICD9: 465.9, ICD10: J06.9, B97.89- Discussed viral etiology and rationale for treatment.- Symptomatic treatment with prn analgesia- Supportive care with fluids and rest- The patient may also use OTC cough and cold meds as needed and warm saltwater gargles, throat lozenges and/or OTC throat spray as needed.- FLUTICASONE 50 MCG/ACTUATION NASAL SPRAY,SUSPENSION- LORATADINE 10 MG TABLETFollow up with primary care physician in 3-5 days if symptoms persist orWNicole Gomez CNP [facility] Vital Signs Date Time Vital Sign Value Performing Clinician Facility 08-28-2023 14:08-0500 Body height 172.[address] Evangelina Irby Work Phone: [facility] 08-28-2023 14:08-0500 Body mass index (BMI) [Ratio] 42.5 kg/m2 Dr. Evangelina Irby Work Phone: [facility] 08-28-2023 14:08-0500 Body weight [address] Evangelina Irby Work Phone: [facility] 08-28-2023 14:08-0500 Diastolic blood pressure 80 mm[Hg] Dr. Evangelina Irby Work Phone: [facility] 08-28-2023 14:08-0500 Heart rate 75 /min Dr. Evangelina Irby Work Phone: [facility] 08-28-2023 14:08-0500 Respiratory rate 16 /min Dr. Evangelina Irby Work Phone: [facility] 08-28-2023 14:08-0500 Systolic blood pressure 144 mm[Hg] Dr. Evangelina Irby Work Phone: [facility] 11-02-2022 07:22-0500 Body height 148.59 cm Yohan Benson [facility] Work Phone: 11-02-2022 07:22-0500 Body mass index (BMI) [Ratio] 58.17 kg/m2 Yohan Benson [facility] Work Phone: 11-02-2022 07:22-0500 Body surface area Derived from formula 2.12 m2 Yohan Benson [facility] Work Phone: 11-02-2022 07:22-050 Body temperature 96.8 [degF] Yohan Benson [facility]; [facility] Work Phone: 11-02-2022 07:22-0500 Body weight 128.43 kg Yohan Benson [facility] Work Phone: 11-02-2022 07:22-0500 Diastolic blood pressure 80 mm[Hg] Yohan [facility]; [facility] Work Phone: Comment on above: Patient Position: Sitting; Cuff Location : Left Arm; Cuff Size: Standard 11-02-2022 07:22-0500 Heart rate 86 /min sarah [facility] Work Phone: Comment on above: Pattern: Regular 11-02-2022 07:22-0500 Respiratory rate 16 /min sarah Benson [facility]; [facility] Work Phone: Comment on above: Pattern: Unlabored 11-02-2022 07:22-0500 SaO2% (BldA) [Mass fraction] 95 % Yohan Benson [facility] Work Phone: Comment on above: Room air 11-02-2022 07:22-0500 Systolic blood pressure 130 mm[Hg] Yohan Benson [facility] Work Phone: Comment on above: Patient Position: Sitting; Cuff Location : Left Arm; Cuff Size: Standard 09-20-2022 07:00-0500 Body height 148.59 [address] [facility] Work Phone: 09-20-2022 07:00-0500 Body mass index (BMI) [Ratio] 59.24 kg/m2 Jorgesarathhelene [facility]; [facility] Work Phone: 09-20-2022 07:00-0500 Body surface area Derived from formula 2.14 m2 [facility] Work Phone: 09-20-2022 07:00-0500 Body temperature 96.9 [degF] [facility]esarah [facility]; [facility] Work Phone: 09-20-2022 07:00-0500 Body weight 130.[address] [facility]; [facility] Work Phone: 09-20-2022 07:00-0500 Diastolic blood pressure 82 mm[Hg] Jorgesarathhelene [facility]; [facility] Work Phone: Comment on above: Patient Position: Sitting; Cuff Location : Left Arm; Cuff Size: Standard 09-20-2022 07:00-0500 Heart rate 80 /min sarah [facility]; [facility] Work Phone: Comment on above: Pattern: Regular 09-20-2022 07:00-0500 Respiratory rate 16 /min [facility]; [facility] Work Phone: Comment on above: Pattern: Unlabored 09-20-2022 07:00-0500 SaO2% (BldA) [Mass fraction] 95 % [facility]esarah [facility]; [facility] Work Phone: Comment on above: Room air 09-20-2022 07:00-0500 Systolic blood pressure 130 mm[Hg] Jorgesarah [facility]; [facility] Work Phone: Comment on above: Patient Position: Sitting; Cuff Location : Left Arm; Cuff Size: Standard 03-19-2022 15:48-0400 Body height 148.59 cm Elin Hurley LPN [facility] Work Phone: 03-19-2022 15:48-0400 Body mass index (BMI) [Ratio] 57.52 kg/m2 Elin Hurley LPN [facility]; [facility] Work Phone: 03-19-2022 15:48-0400 Body surface area Derived from formula 2.11 m2 Elin Hurley LPN [facility]; [facility] Work Phone: 03-19-2022 15:48-0400 Body temperature 97.1 [degF] Elin Hurley LPN [facility]; [facility] Work Phone: 03-19-2022 15:48-0400 Body weight 127.01 kg Elin Hurley LPN [facility]; [facility] Work Phone: 03-19-2022 15:48-0400 Diastolic blood pressure 80 mm[Hg] Elin Hurley LPN [facility]; [facility] Work Phone: Comment on above: Patient Position: Sitting; Cuff Location : Left Arm; Cuff Size: Standard 03-19-2022 15:48-0400 Heart rate 78 /min Elin Hurley LPN [facility]; [facility] Work Phone: Comment on above: Pattern: Regular 03-19-2022 15:48-0400 Respiratory rate 16 /min Elin Hurley LPN [facility]; [facility] Work Phone: Comment on above: Pattern: Unlabored 03-19-2022 15:48-0400 SaO2% (BldA) [Mass fraction] 95 % Elin Hurley LPN [facility]; [facility] Work Phone: Comment on above: Room air 03-19-2022 15:48-0400 Systolic blood pressure 126 mm[Hg] Elin Hurley LPN [facility]; [facility] Work Phone: Comment on above: Patient Position: Sitting; Cuff Location : Left Arm; Cuff Size: Standard 02-26-2022 13:120400 Body height 148.59 cm Kisha Martínez CMA [facility]; [facility] Work Phone: 02-26-2022 13:12-0400 Body mass index (BMI) [Ratio] 57.93 kg/m2 Kisha Martínez [facility]; [facility] Work Phone: 02-26-2022 13:120400 Body surface area Derived from formula 2.12 m2 Kisha Martínez [facility]; [facility] Work Phone: 02-26-2022 13:120400 Body temperature 97.3 [degF] Kisha Martínez [employer] [facility] [employer]; [facility] Work Phone: Comment on above: Method: Infrared 02-26-2022 13:120400 Body weight 127.92 kg Kisha Martínez [employer] [facility] Work Phone: 02-26-2022 13:12-0400 Diastolic blood pressure 90 mm[Hg] Kisha Martínez [facility]; [facility] Work Phone: Comment on above: Patient Position: Sitting; Cuff Location : Left Arm; Cuff Size: Standard 02-26-2022 13:120400 Heart rate 99 /min Kisha Martínez [facility]; [facility] Work Phone: Comment on above: Pattern: Regular 02-26-2022 13:12-0400 Respiratory rate 18 /min Kisha Martínez [facility]; [facility] Work Phone: Comment on above: Pattern: Unlabored 02-26-2022 13:12-0400 SaO2% (BldA) [Mass fraction] 94 % Kisha Martínez [facility]; [facility] Work Phone: Comment on above: Room air 02-26-2022 13:12-0400 Systolic blood pressure 141 mm[Hg] Kisha Martínez CMA [facility]; [facility] Work Phone: Comment on above: Patient Position: Sitting; Cuff Location : Left Arm; Cuff Size: Standard 01-24-2022 14:38-0400 Body height 148.59 cm Kisha Martínez CMA [facility]; [facility] Work Phone: 01-24-2022 14:38-0400 Body mass index (BMI) [Ratio] 56.29 kg/m2 Kisha Martínez CMA [facility]; [facility] Work Phone: 01-24-2022 14:38-0400 Body surface area Derived from formula 2.1 m2 Kisha Martínez CMA [facility]; [facility] Work Phone: 01-24-2022 14:38-0400 Body temperature 97.3 [degF] Kisha Martínez CMA [facility]; [facility] Work Phone: Comment on above: Method: Infrared 01-24-2022 14:38-0400 Body weight 124.29 kg Kisha Martínez CMA [facility]; [facility] Work Phone: 01-24-2022 14:38-0400 Diastolic blood pressure 82 mm[Hg] Kisha Martínez CMA [facility]; [facility] Work Phone: Comment on above: Patient Position: Sitting; Cuff Location : Left Arm; Cuff Size: Standard 01-24-2022 14:38-0400 Heart rate 96 /min Kisha Martínez CMA [facility]; [facility] Work Phone: Comment on above: Pattern: Regular 01-24-2022 14:38-0400 Respiratory rate 20 /min Kisha Martínez CMA [facility]; [facility] Work Phone: Comment on above: Pattern: Unlabored 01-24-2022 14:38-0400 SaO2% (BldA) [Mass fraction] 93 % Kisha Martínez [facility]; [facility] Work Phone: Comment on above: Room air 01-24-2022 14:38-0400 Systolic blood pressure 147 mm[Hg] Kisha Martínez [facility]; [facility] Work Phone: Comment on above: Patient Position: Sitting; Cuff Location : Left Arm; Cuff Size: Standard Encounters Encounter Date Encounter Type Care Provider Facility Start: 11-21-2024 End: 11-21-[address] Evangelina Irby DO Work Phone: [facility] Work Phone: Start: 11-21-2024 End: 11-21-[address] Evangelina Irby DO -Laboratory Work Phone: Start: 11-21-2024 End: 11-21-2024 ambulatory Evangelina Irby Facility:[facility] Start: 07-17-2024 End: 07-17-2024 ambulatory Evangelina Irby Facility:[facility] Start: 06-20-2024 End: 06-20-2024 ambulatory Evangelina Irby Facility:[facility] Start: 12-07-2023 End: 12-07-[address] Evangelina Irby Work Phone: [facility] Work Phone: Start: 12-07-2023 End: 12-07-[address] Evangelina Irby Work Phone: [facility]-Laboratory Work Phone: Start: 08-28-2023 End: 08-28-[address] Evangelina Irby Work Phone: [facility] Work Phone: Start: 03-04-2023 End: 03-04-[address] Evangelina Irby Work Phone: [facility] Work Phone: Start: 03-04-2023 End: 03-04-[address] Evangelina Irby Work Phone: [facility] Start: 02-11-2023 End: 02-11-[address] Evangelina Irby Work Phone: [facility] Work Phone: Start: 02-11-2023 End: 02-11-[address] Evangelina Irby Work Phone: [facility] Start: 12-06-2022 Non-patient / Non-visit Dr. Evangelina Irby Work Phone: [facility] Start: 12-06-2022 End: 12-06-[address] Evangelina Irby Work Phone: [facility] Work Phone: Start: 12-06-2022 End: 12-06-[address] Evangelina Irby Work Phone: [facility]-Cardi[facility] Start: 11-27-2022 End: 11-27-2022 ambulatory [facility] Work Phone: Start: 11-27-2022 End: 11-27-2022 Patient encounter procedure [facility] Start: 11-22-2022 End: 11-22-2022 ambulatory [facility] Work Phone: Start: 11-22-2022 End: 11-22-2022 Patient encounter procedure [facility]-Laboratory Start: 11-02-2022 End: 11-02-2022 Patient encounter procedure Yohan Benson CMA [facility]; [facility] Work Phone: Start: 11-02-2022 End: 11-02-2022 Periodic preventive med est patient 40-64yrs Evangelina Irby DO Work Phone: [facility] Start: 10-09-2022 ambulatory Evangelina Irby DO [facility] Start: 09-20-2022 End: 09-21-2022 Office outpatient visit 15 minutes Evangelina Irby DO Work Phone: [facility] Start: 09-20-2022 Review Evangelina Odonnell n DO Work Phone: [facility] Start: 03-19-2022 End: 03-20-2022 Office outpatient visit 15 minutes Evangelina Irby DO Work Phone: [facility] Start: 03-19-2022 Review Evangelina Odonnell n DO Work Phone: [facility] Start: 02-26-2022 End: 02-26-2022 Office outpatient visit 15 minutes Evangelina Irby DO Work Phone: [facility] Start: 01-27-2022 End: 01-27-2022 Patient encounter procedure [facility]-Laboratory Start: 01-24-2022 End: 01-24-2022 Office outpatient new 30 minutes Evangelina Irby DO Work Phone: [facility] Start: 10-10-2017 End: 10-11-2017 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 Evangelina Irby, DO Status: REG CLI Study: Chest without Contrast Date of Exam: 02/11/23 Exam# [id number] Ordering Dr: Rafa Maxwell MD INDICATION: Worsening [...] Signed: Jairo Huerta MD at 8:31 EDT Reading Location ID and State: [address] [place] [address] , Service support , CC: Dr. Evangelina Irby DO; Dr. Rafa Maxwell MD Role Player: Signed Evangelina Irby DO Work Phone: Start: 02-11-2023 CT of chest without contrast Dr. Evangelina Irby Work Phone: Start: 12-06-2022 End: 12-08-2022 Echo Complete Procedure Note: See Note; NOTES: [facility] Cardiovascular Services [address] [place] [address] Echo Complete 12/06/22 1346 MR#: [id number] Acct: [id number] Name: YESSI MOREIRA Rep #: [id number] : 1975 47 From: Cyrus Holloway MD Attending Dr: Dr. Rafa Maxwell MD Status: REG CLI Ordering Dr: Rafa Maxwell MD Date: 12/06/22 Location: [facility] Sex: F C Admitted: Reason For Study: [...] cm LVPWd: 1.1 cm FS: 42.9 % ___ LAV(MOD-bp): 59.8 ml LVAd ap4: 32.9 cm2 [...] % EF(MOD-sp2): 65.8 % EF(sp4-el): 77.2 % ___ SV(MOD-sp4): 74.0 ml SV(MOD-sp2): 51.5 ml SV(sp4-el): 78.7 ml ___ LA dimension(2D): 3.6 cm LA A4 area: 21.4 cm2 RA A4 area: 15.4 cm2 Time Measurements MV dec time: 0.20 sec Doppler Measurements Calculations MV E max aquiles: 95.3 cm/sec Lat Peak E' Aquiles: 13.2 cm/sec Med Peak E' Aquiles: 14.5 cm/sec MV A max aquiles: 74.9 cm/sec E/E' lat: 7.2 E/E' med: 6.6 MV E/A: 1.3 ___ Ao V2 max: 127.2 cm/sec LV V1 [...] Date Cyrus Holloway MD CC: Dr. Evangelina Irby DO; Dr. Rafa Maxwell MD Date Dictated: 12/06/22 1346 Date Transcribed: 12/08/22 1245 Role Player: Brendon Irby DO Work Phone: Start: 11-27-2022 End: 11-28-2022 Chest PA and Lateral Procedure Note: See Note; NOTES: [facility] Imaging Services [address] [place] [id number] Chest PA and Lateral MR#: [id number] Acct: [id number] Name: YESSI MOREIRA Rep #: [id number] : 1975 F 47 From: Shoaib Roberts MD PCP: Dr. Evangelina Irby DO Status: REG CLI Study: Chest PA and Lateral Date of Exam: 11/27/22 Exam# [id number] Ordering Dr: Rafa Maxwell MD STUDY: X-RAY [...] Evangelina Irby DO; Dr. Rafa Maxwell MD Role Player: Signed Evangelina Irby DO Work Phone: Start: 11-27-2022 Plain chest X-ray Ligation of fallopian tube Kisha Gravfatoumata [facility] Comment on above: dr rodriguez in 1999 Ligation of fallopian tube Elin Hurley [employer] Comment on above: dr rodriguez in 1999 Ligation of fallopian tube Danika Paul MA Comment on above: dr rodriguez in 1999 Ligation of fallopian tube Yohan Benson [facility] Comment on above: dr rodriguez in 1999 Operative procedure on foot Kisha Gravius [facility] Comment on above: repair a fractured f oot, has pins in foot Operative procedure on foot 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: repair a fractured f oot, has pins in foot Operative procedure on foot Danika Paul MA Comment on above: repair a fractured f oot, has pins in foot Operative procedure on foot Yohan Benson [facility] Comment on above: repair a fractured f oot, has pins in foot Plan of Treatment Date Care Activity Detail Author Start: 11-02-2022 Procedure Education Eprescribed prescriptions (G8553) [facility] Work Phone: Start: 11-02-2022 Provider Instructions for Treatment [facility] Work Phone: Start: 11-02-2022 Hpv, dna, amp probe HPV Auto Reflex PAP (92006) [facility]; [facility] Work Phone: Start: 09-20-2022 Urnls dip stick/tablet reagent auto microscopy URINALYSIS, W/ MICRO (33908) [facility]; [facility] Work Phone: Start: 09-20-2022 Urine albumin quantitative MICROALBUMIN: CREATININE RATIO (78752) AND (41313) [facility]; [facility] Work Phone: Start: 09-20-2022 Comprehensive metabolic panel METABOLIC PANEL, COMPREHENSIVE (70022) [facility]; [facility] Work Phone: Start: 09-20-2022 Lipid panel LIPID PANEL (36079) [facility]; [facility] Work Phone: Start: 09-20-2022 Blood count complete auto&auto difrntl wbc CBC W/AUTO DIFF WBC (09582) [facility]; [facility] Work [...] stick/tablet reagent auto microscopy URINALYSIS, W/ MICRO (33092) [facility]; [facility] Work Phone: Start: 01-24-2022 Urine albumin quantitative MICROALBUMIN: CREATININE RATIO (88611) AND (71185) [facility]; [facility] Work Phone: Start: 01-24-2022 Comprehensive metabolic panel METABOLIC PANEL, COMPREHENSIVE (28171) [facility]; [facility] Work Phone: Start: 01-24-2022 Lipid panel LIPID PANEL (55901) [facility] Work Phone: Start: 01-24-2022 Blood count complete auto&auto difrntl wbc CBC W/AUTO DIFF WBC (26369) [facility]; [facility] Work [...] Immunizations Immunization Date Immunization Notes Care Provider [facility] 07-17-2024 tetanus toxoid, reduced diphtheria toxoid, and acellular pertussis vaccine, adsorbed Dr. Evangelina Irby DO Work Phone: [facility] 06-23-2021 COVID-Moderna (100 MCG/0.5 ML) Evangelina Irby DO Work Phone: [facility]; [facility] Work Phone: 09-23-2020 COVID-Moderna (100 MCG/0.5 ML) Evangelina Irby DO Work Phone: [facility]; [facility] Work Phone: Payers Date Payer Category Payer Unknown [id number] 2024 Self-pay [id number] 2021 Unknown [id number] 1975 Unknown [id number] Unknown [employer] BC/BS Unknown [id number] Unknown [id number] [id number] Unknown [id number] Unknown [id number] Social History Date Type Detail Facility Caffeine Use Caffeine Use [facility] Work Phone: Comment on above: 1 can of pop Start: 01-27-2022 End: 08-28-2023 Tobacco smoking status [facility] Unknown if ever smoked [facility] Start: 1975 Sex Assigned At Female W [facility] Start: 08-28-2023 Tobacco smoking status NHIS Ex-smoker (finding) [facility] Start: 12-03-2024 Sex Female (finding) [facility] Clinical Notes Note Date & Type Note Facility Evaluation note No assessment information availa ble [facility] Work Phone: Evaluation note Diagnosis Onset Date Dyspnea acute Essential hypertension acute [facility] Work Phone: Instructions* Name Dates Details Patient Instructions Indication:Morbid obesity Start:24-Jan-2022 Instruction Type:Provider Instructions for Treatment How to Access Health Informa tion Online using Patient Portal and [employer] Indication:Morbid obesity Start:24-Jan-2022 Instruction Type:Patient Edu cation [facility] Work Phone: Insshikrions* Name Dates Details Patient Instructions Indication:Morbid obesity Start:19-Mar-2022 Instruction Type:Provider Instructions for Treatment How to Access Health Informa tion Online using Patient Portal and [employer] Apps Indication:Morbid obesity Start:19-Mar-2022 Instruction Type:Patient Education Patient Instructions Indication:HTN (hypertension), benign Start:26-Feb-2022 Instruction Type:Provider Instructions for Treatment How to Access Health Informa tion Online using Patient Portal and [employer]rd [employer] Apps Indication:HTN (hypertension), benign Start:26-Feb-2022 Instruction Type:Patient Education Patient Instructions Indication:Morbid obesity Start:24-Jan-2022 Instruction Type:Provider Instructions for Treatment How to Access Health Informa tion Online using Patient Portal and [employer]rd [employer] Apps Indication:Morbid obesity Start:24-Jan-2022 Instruction Type:Patient Education [facility]; [facility] Work Phone: instructions* Name Dates Details Patient Instructions Indication:Morbid obesity Start:19-Mar-2022 Instruction Type:Provider Instructions for Treatment How to Access Health Informa tion Online using Patient Portal and [employer]rd [employer] Apps Indication:Morbid obesity Start:19-Mar-2022 Instruction Type:Patient Education Patient Instructions Indication:HTN (hypertension), benign Start:26-Feb-2022 Instruction Type:Provider Instructions for Treatment How to Access Health Informa tion Online using Patient Portal and [employer]rd [employer] Apps Indication:HTN (hypertension), benign Start:26-Feb-2022 Instruction Type:Patient Education Patient Instructions Indication:Morbid obesity Start:24-Jan-2022 Instruction Type:Provider Instructions for Treatment How to Access Health Informa tion Online using Patient Portal and [employer]rd [employer] Apps Indication:Morbid obesity Start:24-Jan-2022 Instruction Type:Patient Education [facility] Work Phone: instructions* Name Dates Details Patient Instructions Indication:Morbid obesity Start:19-Mar-2022 Instruction Type:Provider Instructions for Treatment How to Access Health Informa tion Online using Patient Portal and [employer]rd [employer] Apps Indication:Morbid obesity Start:19-Mar-2022 Instruction Type:Patient Education Patient Instructions Indication:HTN (hypertension), benign Start:26-Feb-2022 Instruction Type:Provider Instructions for Treatment How to Access Health Informa tion Online using Patient Portal and [employer]rd [employer] Apps Indication:HTN (hypertension), benign Start:26-Feb-2022 Instruction Type:Patient Education Patient Instructions Indication:Morbid obesity Start:24-Jan-2022 Instruction Type:Provider Instructions for Treatment How to Access Health Informa tion Online using Patient Portal and [employer]rd [employer] Apps Indication:Morbid obesity Start:24-Jan-2022 Instruction Type:Patient Education [facility]; [facility] Work Phone: Instructions* Name Dates Details Patient Instructions Indication:Non-smoker Start:20-Sep-2022 Instruction Type:Provider Instructions for Treatment How to Access Health Informa tion Online using Patient Portal and [employer]rd [employer] Apps Indication:Non-smoker Start:20-Sep-2022 Instruction Type:Patient Education Patient Instructions Indication:Morbid obesity Start:19-Mar-2022 Instruction Type:Provider Instructions for Treatment How to Access Health Informa tion Online using Patient Portal and [employer]rd [employer] Apps Indication:Morbid obesity Start:19-Mar-2022 Instruction Type:Patient Education Patient Instructions Indication:HTN (hypertension), benign Start:26-Feb-2022 Instruction Type:Provider Instructions for Treatment How to Access Health Informa tion Online using Patient Portal and [employer]rd [employer] Apps Indication:HTN (hypertension), benign Start:26-Feb-2022 Instruction Type:Patient Education Patient Instructions Indication:Morbid obesity Start:24-Jan-2022 Instruction Type:Provider Instructions for Treatment How to Access Health Informa tion Online using Patient Portal and [employer]rd [employer] Apps Indication:Morbid obesity Start:24-Jan-2022 Instruction Type:Patient Education [facility]; [facility] Work Phone: Instructions* Name Dates Details Patient Instructions Indication:Non-smoker Start:20-Sep-2022 Instruction Type:Provider Instructions for Treatment How to Access Health Informa tion Online using Patient Portal and [employer]rd [employer] Apps Indication:Non-smoker Start:20-Sep-2022 Instruction Type:Patient Education Patient Instructions Indication:Morbid obesity Start:19-Mar-2022 Instruction Type:Provider Instructions for Treatment How to Access Health Informa tion Online using Patient Portal and [employer]rd [employer] Apps Indication:Morbid obesity Start:19-Mar-2022 Instruction Type:Patient Education Patient Instructions Indication:HTN (hypertension), benign Start:26-Feb-2022 Instruction Type:Provider Instructions for Treatment How to Access Health Informa tion Online using Patient Portal and [employer]rd [employer] Apps Indication:HTN (hypertension), benign Start:26-Feb-2022 Instruction Type:Patient Education Patient Instructions Indication:Morbid obesity Start:24-Jan-2022 Instruction Type:Provider Instructions for Treatment How to Access Health Informa tion Online using Patient Portal and [employer]rd [employer] Apps Indication:Morbid obesity Start:24-Jan-2022 Instruction Type:Patient Education [facility]; [facility] Work Phone: instructions* Name Dates Details Patient Instructions Indication:BMI 50.0-59.9, adult Start:02-Nov-2022 Instruction Type:Provider Instructions for Treatment How to Access Health Informa tion Online using Patient Portal and 3rd [employer] Apps Indication:BMI 50.0-59.9, adult Start:02-Nov-2022 Instruction Type:Patient Education Patient Instructions Indication:Non-smoker Start:20-Sep-2022 Instruction Type:Provider Instructions for Treatment How to Access Health Informa tion Online using Patient Portal and [employer]rd [employer] Apps Indication:Non-smoker Start:20-Sep-2022 Instruction Type:Patient Education Patient Instructions Indication:Morbid obesity Start:19-Mar-2022 Instruction Type:Provider Instructions for Treatment How to Access Health Informa tion Online using Patient Portal and [employer]rd [employer] Apps Indication:Morbid obesity Start:19-Mar-2022 Instruction Type:Patient Education Patient Instructions Indication:HTN (hypertension), benign Start:26-Feb-2022 Instruction Type:Provider Instructions for Treatment How to Access Health Informa tion Online using Patient Portal and [employer]rd [employer] Apps Indication:HTN (hypertension), benign Start:26-Feb-2022 Instruction Type:Patient Education Patient Instructions Indication:Morbid obesity Start:24-Jan-2022 Instruction Type:Provider Instructions for Treatment How to Access Health Informa tion Online using Patient Portal and [employer]rd [employer] Apps Indication:Morbid obesity Start:24-Jan-2022 Instruction Type:Patient Education [facility]; [facility] Work Phone: instructions* Name Dates Details Patient Instructions Indication:BMI 50.0-59.9, adult Start:02-Nov-2022 Instruction Type:Provider Instructions for Treatment How to Access Health Informa tion Online using Patient Portal and [employer]rd [employer] Apps Indication:BMI 50.0-59.9, adult Start:02-Nov-2022 Instruction Type:Patient Education Patient Instructions Indication:Non-smoker Start:20-Sep-2022 Instruction Type:Provider Instructions for Treatment How to Access Health Informa tion Online using Patient Portal and [employer]rd [employer] Apps Indication:Non-smoker Start:20-Sep-2022 Instruction Type:Patient Education Patient Instructions Indication:Morbid obesity Start:19-Mar-2022 Instruction Type:Provider Instructions for Treatment How to Access Health Informa tion Online using Patient Portal and [employer]rd [employer] Apps Indication:Morbid obesity Start:19-Mar-2022 Instruction Type:Patient Education Patient Instructions Indication:HTN (hypertension), benign Start:26-Feb-2022 Instruction Type:Provider Instructions for Treatment How to Access Health Informa tion Online using Patient Portal and 3rd [employer] Apps Indication:HTN (hypertension), benign Start:26-Feb-2022 Instruction Type:Patient Education Patient Instructions Indication:Morbid obesity Start:24-Jan-2022 Instruction Type:Provider Instructions for Treatment How to Access Health Informa tion Online using Patient Portal and [employer]rd [employer] Apps Indication:Morbid obesity Start:24-Jan-2022 Instruction Type:Patient Education [facility]; [facility] Work Phone: Instructions* Name Dates Details Patient Instructions Indication:BMI 50.0-59.9, adult Start:02-Nov-2022 Instruction Type:Provider Instructions for Treatment How to Access Health Informa tion Online using Patient Portal and [employer]rd [employer] Apps Indication:BMI 50.0-59.9, adult Start:02-Nov-2022 Instruction Type:Patient Education Patient Instructions Indication:Non-smoker Start:20-Sep-2022 Instruction Type:Provider Instructions for Treatment How to Access Health Informa tion Online using Patient Portal and [employer]rd [employer] Apps Indication:Non-smoker Start:20-Sep-2022 Instruction Type:Patient Education Patient Instructions Indication:Morbid obesity Start:19-Mar-2022 Instruction Type:Provider Instructions for Treatment How to Access Health Informa tion Online using Patient Portal and [employer]rd [employer] Apps Indication:Morbid obesity Start:19-Mar-2022 Instruction Type:Patient Education Patient Instructions Indication:HTN (hypertension), benign Start:26-Feb-2022 Instruction Type:Provider Instructions for Treatment How to Access Health Informa tion Online using Patient Portal and [employer]rd [employer] Apps Indication:HTN (hypertension), benign Start:26-Feb-2022 Instruction Type:Patient Education Patient Instructions Indication:Morbid obesity Start:24-Jan-2022 Instruction Type:Provider Instructions for Treatment How to Access Health Informa tion Online using Patient Portal and [employer] Apps Indication:Morbid obesity Start:24-Jan-2022 Instruction Type:Patient Education [facility] Work Phone: reason for referral (narrative)No reason for referral information [facility] Work Phone: Summary Purpose Family History Unknown [...] Status:Active Mother Comments:stroke then seizure s Status:Active Relationship Condition Age at Onset Recorded Date/T karina father Autoimmune disease Unknown mother Cerebrovascular accident (CVA) Unknown Seizure Unknown grandfather Diabetes mellitus Unknown Malignant neoplasm of prostate Unknown Congestive heart failure Unknown grandmother Congestive heart failure Unknown Advance Directives No Advanced Directives Records FoundNo Advanced Directives Records FoundNo Advanced Directives Records Found Chief Complaint and Reason for Visit Chief Complaint sob Chief Complaint sob DYSPNEA Chief Complaint sob DYSPNEA DYSNEA, GAS EXCHANGE ABNORMALITY Chief Complaint sob DYSPNEA DYSNEA, GAS EXCHANGE ABNORMALITY BNP-SOB Chief Complaint DYSPNEA/SOB (SIBILIA ) Reason for Visit Dyspnea Essential hypertension Additional Source Comments INFORMATION SOURCE (unrecogn ized section and content) DATE CREATED AUTHOR 03/18/2018 [facility] DATE CREATED AUTHOR AUTHOR'S ORGANIZ ATION 10/10/2022 [facility] DATE CREATED AUTHOR AUTHOR'S ORGANIZ ATION 12/06/2024 [facility] Goals (unrecognized section and content) Goals may be documented in a n alternate sectionGoals may be documented in an alternate sectionGoals may be documented in an alternate sectionGoals may be documented in an alternate sectionGoals may be documented in an alternate sectionGoals may be documented in an alternate sectionGoals may be documented in an alternate sectionGoals may be documented in an alternate section Care Teams (unrecognized sec tion and content) Team Status: Active Member Role Status Dates Dr. Evangelina Irby , DO Primary Care Provider Active Team Status: Inactive Member Role Status Dates Dr. Evangelina Irby DO Primary Care Provider, Referr ing Provider Active Dr. Austyn Hutson MD Attending Provider Active Team Status: Inactive Member Role Status Dates Dr. Evangelina Irby , DO Primary Care Pr ovider, Attending Provider, Referring Provider Active Team Status: Active Member Role Status Dates Dr. Evangelina Irby DO Primary Care Provider Active Dr. Cyrus Holloway MD Attending Provider Activ e Team Status: Inactive Member Role Status Dates Dr. Evangelina Irby DO Primary Care Provider Active Dr. Rafa Maxwell MD Attending Provider, Referrin g Provider Active Team Status: Inactive Member Role Status Dates Dr. Evangelina Irby DO Primary Care Provider Active Dr. Rafa Maxwell MD Attending Provider Active Team Status: Inactive Member Role Status Dates Dr. Evangelina Irby DO Primary Care Provider Active Start: November 21, 2024 End: November 21, 2024 Dr. Evangelina Irby DO Attending Provider Active Start: November 21, 2024 End: November 21, 2024 Dr. Evangelina Irby DO Referring Provider Active Start: November 21, 2024 End: November 21, 2024 FOR RECORDS PERTAINING TO PATIENTS WHO ARE [...] BE BASED ON THE PRIMARY CLINICAL RECORDS. [facility] [employer] provides no warranty or guarantee of the accuracy or completeness of information in this document.
[2025-03-23 06:10] LABS: Mucous, Urine 0 SEEN /hpf (<or=2+); Red Blood Cells-Urine 0 SEEN /hpf (0-5)
[2025-03-23 07:15] LABS: Color, Urine Yellow (Yellow); Glucose, Dipstick Normal (Normal); Ketone-Dipstick Negative (Negative); Leukocyte Esterase-Dipstick Negative /ul (Negative); Nitrite-Dipstick Negative (Negative); Occult Blood-Urine Negative /ul (Negative); Protein-Dipstick 15 mg/dl (Negative); Specific Gravity, Urine 1.015 (1.002-1.030); Urine Bilirubin Dipstick Negative (Negative)
[2025-03-23 07:20] LABS: Hematocrit 39.4 % (37-47); Hemoglobin 13.0 g/dL (12.0-15.0); Immature Granulocytes Count 0.010 X10^3/uL (0.0-0.0); Mean Corp Hgb Conc 33.0 g/dL (32-36); Mean Corpuscular Volume 91.2 fL (81-99); Mean Platelet Vol. 11.0 fl (6.2-12.0); NRBC Flagged by Analyzer 0 % (0-5); Platelet Count 230 K/mm3 (150-450); RBC Distribution Width CV 13.8 % (11.6-14.6); RBC Distribution Width SD 46.4 fl (35.1-43.9); Red Blood Count 4.32 M/mm3 (4.2-5.4); White Blood Count 6.1 K/mm3 (4.4-11.0)
[2025-03-23 07:29] LABS: Creatinine, Urine (random) 74.30 mg/dL (28.00-217.00); Microalbumin,Random Urine < 12.0 mg/L (NO RANGE EST.)
[2025-03-23 07:32] LABS: Squamous Epithelial Cells - UA 0-5 SEEN /hpf (5-10)
[2025-03-23 07:46] LABS: AST(SGOT) 16 U/L (<=31); Alanine Aminotransfer ALT/SGPT 21 U/L (<=34); Albumin, Serum 4.3 g/dL (3.5-5.0); Alkaline Phosphatase 50 U/L (35-104); Anion Gap 9 (5-15); BUN 23 mg/dL (4-19); BUN/Creat Ratio 35.4 RATIO (10-20); Calcium,Total 9.4 mg/dL (7.6-11.0); Carbon Dioxide 26.7 mmol/L (21.0-32.0); Chloride 104 mmol/L (98-108); Cholesterol 201 mg/dL (<=200); Globulin 3.2 g/dL (2.2-4.2); Glucose 105 mg/dL (70-99); Low Density Lipoprotein Calc. 145 mg/dL; Potassium 4.5 mmol/L (3.3-5.1); Triglycerides 55 mg/dL; Very Low Density Lipoprotein 11 mg/dL (5-40); cholesterol:hdl ratio screen 4.42
== END | disposition home or self-care (01) ==
LOC: LAB 06:07
PROVIDERS: PCP Internal Medicine; Referring Provider Internal Medicine; Visit Provider Internal Medicine
DX: E78.5 Hyperlipidemia, unspecified (principal); E11.9 Type 2 diabetes mellitus without complications
CPT/HCPCS: 36415; 80053; 80061; 81001; 82043; 82570; 84443; 85025

== ENCOUNTER → 2025-04-29 | Outpatient (CLI) | payer BC, SELFPAY ==
--- NOTE | 2025-04-29 06:40 | CT_ITS ---
PROCEDURE: LIMITED CHEST CT CARDIAC ONLY 04/29/2025 REASON FOR EXAM: HYPERLIPIDEMIA TECHNIQUE: LIMITED CHEST CT CARDIAC ONLY CONTRAST: None One or more dose reduction techniques were used (e.g., Automated exposure control, adjustment of the mA and/or kV according to patient size, use of iterative reconstruction technique). RADIATION DOSE SUMMARY: CTDlvol: 22.58 mGy DLP: 361.3 mGycm COMPARISON: Prior CT scan of the thorax dated February 11, 2023. FINDINGS: Coronary artery calcification. Calcified bilateral hilar lymph nodes. CT/Limited Chest CT Cardiac Only IMPRESSION: Coronary artery calcification. Reading Location: [id number]
--- OUTSIDE RECORDS SUMMARY | 2025-04-29 06:44 | XMS RPT_ITS | CCD ---
Author Organization [facility] Care Team Providers Care Retort Setter Name Role Phone DOROTHY MCGOWAN (GLASS EMBOSSER) Unavailable Unavailable Surekha DO, Evangelina Unavailable [phone] [employer] WORKERS COMPENSATION EXAMINER, Kisha Unavailable Unavailable Xavi MOLD HOLDER, Elin Unavailable Unavailable Unavailable Unavailable Surekha DOEvangelina Unavailable [phone] Marcelino WORKERS COMPENSATION EXAMINER, Kayela Unavailable Unavailable Jamieson Danika WALSH Unavailable Unavailable Surekha DO, Evangelina Attending Unavailable Surekha , Evangelina Referring Unavailable Surekha LAST, Evangelina Consulting Unavailable Surekha, Dr. Hutchinson Primary Care Provider [phone] Dr. Cyrus Holloway Attending Provider Surekha, Dr. Hutchinson Primary Care Provider [phone] Dr. Evangelina Irby Referring Provider [phone] Dr. Austyn Hutson Attending Provider Surekha LAST, Dr. Hutchinson Primary Care Provider [phone] Surekha LAST, Dr. Hutchinson Attending Provider [phone] Dr. Evangelina Irby DO Referring Provider [phone] Dr. Evangelina Irby DO Primary Care Provider Surekha LAST, Dr. Hutchinson Attending Provider [phone] Surekha LAST, Dr. Hutchinson Referring Provider [phone] Evangelina Irby Primary Care Unavailable Surekha, Evangelina Referring Unavailable Evangelina Irby Attending Unavailable Evangelina Irby Primary Care Unavailable SurekhaEvangelina Referring Unavailable Surekha, Evangelina Attending Unavailable Surekha, Evangelina Referring Unavailable SurekhaEvangelina farmer Attending Unavailable Evangelina Irby Primary Care Unavailable Evangelina Irby Referring Unavailable Kennedy Brown Attending Unavailable Evangelina Irby Primary Care Unavailable Evangelina Irby Referring Unavailable Evangelina Irby Attending Unavailable Evangelina Irby Primary Care Unavailable Medications Current Medications Medication Drug Class(es) Dates Sig (Normalized) Sig (Original) [id number] 200 actuat albuterol 0.09 mg/actuat metered dose inhaler (14 sources) beta2-Adrenergic Agonist Start: 06-28-2023 Albuterol Sulfate [...] Base) MCG/ACT) Active 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 Comment on above: dr holt - allerg ist 30 actuat fluticasone furoate 0.2 mg/actuat / vilanterol 0.025 mg/actuat dry powder inhaler (3 sources) Corticosteroid, beta2-Adrenergic Agonist Start: 06-28-2023 Fluticasone Furoate-Vilanterol (Breo Ellipta) 200-25 mcg/dose blister with device Active 1 NMA INHALATION DAILY June 28, 2023 12:00am Start: 06-28-2023 Fluticasone Fu roate-Vilanterol (Breo Ellipta) 200-25 mcg/dose blister with device Active 1 INH INHALATION DAILY June 28, 2023 12:00am losartan potassium 50 mg oral tablet (12 sources) Angiotensin 2 Receptor Fidelina Start: 06-28-2023 take 1 tablet by mouth once daily Losartan 50 mg tablet Active 50 mg PO DAILY June 28, 2023 12:00am Start: 03-11-2023 take 1 tablet by rhett th once daily in the morning losartan 50 mg oral tablet 1 (one) Tablet qam for 0 days Quantity: 90 {Tablet} Refills: 2 Ordered: 11-Mar-2023 Surekha DO, Evangelina Irby DO Evangelina Start : 11-Mar-2023 Active Start: 02-05-2023 take 1 tablet by rhett th once daily in the morning losartan 50 mg oral tablet 1 (one) Tablet qam for 0 days Quantity: 30 {Tablet} Refills: 2 Ordered: 05-Feb-2023 Surekha DO, Evangelina Shaikhon DO Evangelina Start : 05-Feb-2023 Active Start: 08-31-2022 take 1 tablet by rhett th once daily in the morning losartan 50 mg oral tablet 1 (one) Tablet qam for 0 days Quantity: 30 {Tablet} Refills: 2 Ordered: 31-Aug-2022 Surekha DO, Evangelina Irby DO Evangelina Start : 31-Aug-2022 Active Start: 05-31-2022 take 1 tablet by rhett th once daily in the morning Losartan Potassium 50 MG Oral Tablet 1 (one) Tablet qam for 0 days Quantity: 30 {Tablet} Refills: 2 Ordered: 31-May-2022 Surekha DO, Evangelina Irby DO Evangelina Start : 31-May-2022 Active Start: 02-26-2022 take 1 tablet by rhett th once daily in the morning Losartan Potassium 50 MG Oral Tablet 1 (one) Tablet qam for 0 days Quantity: 30 {Tablet} Refills: 2 Ordered: 26-Feb-2022 Elin Hurley LPN Start : 26-Feb-2022 Active montelukast 10 mg oral tablet (14 sources) Leukotriene Receptor Antagonist Start: 06-28-2023 take 1 tablet by mouth once daily Montelukast 10 mg tablet Active 10 mg PO DAILY June 28, 2023 12:00am Start: 01-08-2023 take 1 tablet by rhett th once daily at bedtime Singulair 10 mg oral tablet 1 tablet qhs for 0 days Quantity: 90 {Tablet} Refills: 3 Ordered: 08-Jan-2023 Surekha DO, Evangelina Irby DO Evangelina Start : 08-Jan-2023 Active Comments: dr christine short Start: 09-20-2022 take 1 tablet by rhett th once daily at bedtime Singulair 10 mg oral tablet 1 tablet qhs for 0 days Quantity: 90 {Tablet} Refills: 3 Ordered: 20-Sep-2022 Evangelina Irby DO, DO, Kathleen Start : 20-Sep-2022 Active Comments: dr christine short take 1 tablet by rhett th once daily at bedtime Singulair 10 MG Oral Tablet 1 qhs (10 MG) Active Comments: dr christine short Comment on above: dr christine short [...] above: will do at 48 y/o Asthma (3 sources) Asthma; Translations: [Unspecified asthma, uncomplicated] 06-28-2023 Chronic Complications of surgical procedures or medical care (16 sources) Drug therapy finding; Translations: [Medication side effect] Resolved: 09-20-2022 02-26-2022 Episodic Disorders of lipid metabolism (2 sources) Hyperlipidemia, unspecified; Translations: [Hyperlipidemia, unspecified] Onset: 03-29-2025 Chronic Essential hypertension (20 sources) Benign hypertension; Translations: [HTN (hypertension), benign] 01-24-2022 Chronic Other lower respiratory disease (3 sources) Hypoxemia; Translations: [Hypoxemia] 06-28-2023 Episodic Other lower respiratory disease (3 sources) Dyspnea; Translations: [Dyspnea, unspecified] 06-28-2023 Episodic [...] Onset: 07-31-2024 Episodic Open wounds of extremities (3 sources) Laceration of left index finger; Translations: [Laceration without foreign body of left index finger without damage to nail, initial encounter] Onset: 07-31-2024 07-17-2024 Episodic Unclassified (11 sources) Pregnancies (); Translations: [Pregnancies ()] 01-24-2022 Comment on above: 2. Unclassified (8 sources) Non-smoker Unclassified (8 sources) HTN (hypertension), benign Unclassified (4 sources) GLADYS (obstructive sleep apnea) Unclassified (4 sources) Nutritional counseling Unclassified (4 sources) Edema of both legs Unclassified (2 sources) Medication side effect Results Test Name Value Interpretation Reference Range Facility Absolute lymphocyte countOrd ered By: Evangelina Irby on 03-23-2025 Lymphocytes Auto (Unsp spec) [#/Vol] 2.01 10*3/uL 0.83-4.[address] [facility] Absolute neutrophil countOrd ered By: Evangelina Irby on 03-23-2025 Neutrophils (Bld) [#/Vol] 3.5 10*3/uL 2.0-7.[address] [facility] Anion gap in Serum or Plasma Ordered By: Evangelina Irby on 03-23-2025 Anion gap [Moles/Vol] 9 mmol/L 5-15 [facility] Automated lymphocyte count a s percentage of total leukocytesOrdered By: Evangelina Irby on 03-23-2025 Lymphocytes/100 WBC Auto (Unsp spec) 32.9 % 19-[address] [facility] BUN/creatinine ratioOrdered By: Evangelina Irby on 03-23-2025 Urea nitrogen/Creatinine [Mass ratio] 35.4 mg/mg High 10-[address] [facility] Basophil percentageOrdered B y: Evangelina Irby on 03-23-2025 Basophils/100 WBC (Bld) 0.3 % 0-[address] [facility] Bilirubin Test strip Ql (U)O rdered By: Evangelina Irby on 03-23-2025 Bilirubin Ql (U) Negative Negative [facility] Bilirubin, totalOrdered By: Evangelina Irby on 03-23-2025 Bilirubin [Mass/Vol] 0.33 mg/dL 0.00-1.30 [facility] CBC W/Diff, Automatedon Absolute Lymph 2.01 X10 3/uL Normal 0.83-4.[address] [facility] Comment on above: Performed By: #### L 500.4100, L501.9520, L100.0100, L502.0250, L400.0001, L500.4050 #### [facility] [address] [place], [address] Absolute Neut 3.5 X10 3/uL Normal 2.0-7.[address] [facility] Comment on above: Performed By: #### L 500.4100, L501.9520, L100.0100, L502.0250, L400.0001, L500.4050 #### [facility] [address] [place], [address] Basophils/100 WBC (Bld) 0.3 % Normal 0-[address] [facility] Comment on above: Performed By: #### L 500.4100, L501.9520, L100.0100, L502.0250, L400.0001, L500.4050 #### [facility] [address] [place], [address] Eosinophils/100 WBC (Bld) 2.1 % Normal 0-[address] [facility] Comment on above: Performed By: #### L 500.4100, L501.9520, L100.0100, L502.0250, L400.0001, L500.4050 #### [facility] [address] [place], [address] Erythrocyte distribution width (RBC) [Ratio] 13.8 % Normal 11.6-14.[address] [facility] Comment on above: Performed By: #### L 500.4100, L501.9520, L100.0100, L502.0250, L400.0001, L500.4050 #### [facility] [address] [place], [address] Hematocrit (Bld) [Volume fraction] 39.4 % Normal 37-[address] [facility] Comment on above: Performed By: #### L 500.4100, L501.9520, L100.0100, L502.0250, L400.0001, L500.4050 #### [facility] [address] [place], [address] Hemoglobin (Bld) [Mass/Vol] 13.0 g/dL Normal 12.0-15.[address] [facility] Comment on above: Performed By: #### L 500.4100, L501.9520, L100.0100, L502.0250, L400.0001, L500.4050 #### [facility] [address] [place], [address] IG% 0.200 Normal 0.0-0.[address] [facility] Comment on above: Result Comment: IG% - Immature Granulocytes (promyelocytes, myelocytes and metamyelocytes) > 1% indicates that a LEFT SHIFT is Present. Performed By: #### L 500.4100, L501.9520, L100.0100, L502.0250, L400.0001, L500.4050 #### [facility] [address] [place], [address] Lymphocytes/100 WBC (Bld) 32.9 % Normal 19-[address] [facility] Comment on above: Performed By: #### L 500.4100, L501.9520, L100.0100, L502.0250, L400.0001, L500.4050 #### [facility] [address] [place], [address] MCH (RBC) [Entitic mass] 30.1 pg Normal 27.0-32.[address] [facility] Comment on above: Performed By: #### L 500.4100, L501.9520, L100.0100, L502.0250, L400.0001, L500.4050 #### [facility] [address] [place], [address] MCHC (RBC) [Mass/Vol] 33.0 g/dL Normal 32-36 [facility] Comment on above: Performed By: #### L 500.4100, L501.9520, L100.0100, L502.0250, L400.0001, L500.4050 #### [facility] [address] [place], [address] MCV (RBC) [Entitic vol] 91.2 fL Normal 81-[address] [facility] Comment on above: Performed By: #### L 500.4100, L501.9520, L100.0100, L502.0250, L400.0001, L500.4050 #### [facility] [address] [place], [address] Monocytes/100 WBC (Bld) 7.9 % Normal 0-[address] [facility] Comment on above: Performed By: #### L 500.4100, L501.9520, L100.0100, L502.0250, L400.0001, L500.4050 #### [facility] [address] [place], [address] Neutrophils/100 WBC (Bld) 56.6 % Normal 47-[address] [facility] Comment on above: Performed By: #### L 500.4100, L501.9520, L100.0100, L502.0250, L400.0001, L500.4050 #### [facility] [address] [place], [address] Nucleated RBC (Bld) [#/Vol] 0 10*3/uL Normal 0-[address] [facility] Comment on above: Performed By: #### L 500.4100, L501.9520, L100.0100, L502.0250, L400.0001, L500.4050 #### [facility] [address] [place], [address] Platelet mean volume (Bld) [Entitic vol] 11.0 fL Normal 6.2-12.[address] [facility] Comment on above: Performed By: #### L 500.4100, L501.9520, L100.0100, L502.0250, L400.0001, L500.4050 #### [facility] [address] [place], [address] Platelets (Bld) [#/Vol] 230 10*3/uL Normal 150-[address] [facility] Comment on above: Performed By: #### L 500.4100, L501.9520, L100.0100, L502.0250, L400.0001, L500.4050 #### [facility] [address] [place], [address] RBC (Bld) [#/Vol] 4.32 10*6/uL Normal 4.2-5.4 [facility] Comment on above: Performed By: #### L 500.4100, L501.9520, L100.0100, L502.0250, L400.0001, L500.4050 #### [facility] [address] [place], [address] RDW SD 46.4 fl High 35.1-43.[address] [facility] Comment on above: Performed By: #### L 500.4100, L501.9520, L100.0100, L502.0250, L400.0001, L500.4050 #### [facility] [address] [place], [address] WBC (Bld) [#/Vol] 6.1 10*3/uL Normal 4.4-11.0 [facility] Comment on above: Performed By: #### L 500.4100, L501.9520, L100.0100, L502.0250, L400.0001, L500.4050 #### [facility] [address] [place], [address] Calculated very low density lipoprotein (VLDL) cholesterol measurementOrdered By: Evangelina Irby on 03-23-2025 Calculated very low density lipoprotein (VLDL) cholesterol measurement 11 mg/dL 5-[address] [facility] Carbon dioxide, total [Moles /volume] in Central venous bloodOrdered By: Evangelina Irby on 03-23-2025 CO2 [Moles/Vol] 26.7 mmol/L 21.0-32.[address] [facility] Chloride assayOrdered By: Jorge Irby on 03-23-2025 Chloride [Moles/Vol] 104 mmol/L 98-108 [facility] Comprehensive Metabolic Prof ilon 03-23-2025 Albumin [Mass/Vol] 4.3 g/dL Normal 3.5-5.0 [facility] Comment on above: Performed By: #### L 500.4100, L501.9520, L100.0100, L502.0250, L400.0001, L500.4050 #### [facility] [address] [place], [address] Albumin/Globulin [Mass ratio] 1.4 {ratio} Normal 0.9-2.[address] [facility] Comment on above: Performed By: #### L 500.4100, L501.9520, L100.0100, L502.0250, L400.0001, L500.4050 #### [facility] [address] [place], [address] ALK PHOS 50 U/L Normal 35-[address] [facility] Comment on above: Performed By: #### L 500.4100, L501.9520, L100.0100, L502.0250, L400.0001, L500.4050 #### [facility] [address] [place], [address] ALT [Catalytic activity/Vol] 21 U/L Normal <=[address] [facility] Comment on above: Performed By: #### L 500.4100, L501.9520, L100.0100, L502.0250, L400.0001, L500.4050 #### [facility] [address] [place], [address] AST [Catalytic activity/Vol] 16 U/L Normal <=[address] [facility] Comment on above: Performed By: #### L 500.4100, L501.9520, L100.0100, L502.0250, L400.0001, L500.4050 #### [facility] [address] [place], [address] Bilirubin [Mass/Vol] 0.33 mg/dL Normal 0.00-1.30 [facility] Comment on above: Performed By: #### L 500.4100, L501.9520, L100.0100, L502.0250, L400.0001, L500.4050 #### [facility] [address] [place], [address] BUN/CRE 35.4 RATIO High 10-[address] [facility] Comment on above: Performed By: #### L 500.4100, L501.9520, L100.0100, L502.0250, L400.0001, L500.4050 #### [facility] [address] [place], [address] Calcium [Mass/Vol] 9.4 mg/dL Normal 7.6-11.0 [facility] Comment on above: Performed By: #### L 500.4100, L501.9520, L100.0100, L502.0250, L400.0001, L500.4050 #### [facility] [address] [place], [address] Chloride [Moles/Vol] 104 mmol/L Normal 98-108 [facility] Comment on above: Performed By: #### L 500.4100, L501.9520, L100.0100, L502.0250, L400.0001, L500.4050 #### [facility] [address] [place], [address] CO2 [Moles/Vol] 26.7 mmol/L Normal 21.0-32.[address] [facility] Comment on above: Performed By: #### L 500.4100, L501.9520, L100.0100, L502.0250, L400.0001, L500.4050 #### [facility] [address] [place], [address] Creatinine [Mass/Vol] 0.64 mg/dL Low 0.70-1.20 [facility] Comment on above: Performed By: #### L 500.4100, L501.9520, L100.0100, L502.0250, L400.0001, L500.4050 #### [facility] [address] [place], [address] GAP 9 Normal 5-[address] [facility] Comment on above: Performed By: #### L 500.4100, L501.9520, L100.0100, L502.0250, L400.0001, L500.4050 #### [facility] [address] [place], [address] GFR/1.73 sq M.predicted among non-blacks MDRD (S/P/Bld) [Vol rate/Area] 106 mL/min/{1.73_m2} Normal >[address] [facility] Comment on above: Result Comment: mL/m in/1.73m2 CKD-EPI Creatinine Equation (2020) Performed By: #### L 500.4100, L501.9520, L100.0100, L502.0250, L400.0001, L500.4050 #### [facility] [address] [place], [address] Globulin (S) [Mass/Vol] 3.2 g/dL Normal 2.2-4.[address] [facility] Comment on above: Performed By: #### L 500.4100, L501.9520, L100.0100, L502.0250, L400.0001, L500.4050 #### [facility] [address] [place], [address] Glucose [Mass/Vol] 105 mg/dL High 70-99 [facility] Comment on above: Performed By: #### L 500.4100, L501.9520, L100.0100, L502.0250, L400.0001, L500.4050 #### [facility] [address] [place], [address] Potassium [Moles/Vol] 4.5 mmol/L Normal 3.3-5.1 [facility] Comment on above: Performed By: #### L 500.4100, L501.9520, L100.0100, L502.0250, L400.0001, L500.4050 #### [facility] [address] [place], [address] Sodium [Moles/Vol] 140 mmol/L Normal 133-145 [facility] Comment on above: Performed By: #### L 500.4100, L501.9520, L100.0100, L502.0250, L400.0001, L500.4050 #### [facility] [address] [place], [address] T PROT 7.4 g/dL Normal 5.9-8.[address] [facility] Comment on above: Performed By: #### L 500.4100, L501.9520, L100.0100, L502.0250, L400.0001, L500.4050 #### [facility] [address] [place], [address] Urea nitrogen [Mass/Vol] 23 mg/dL High 4-[address] [facility] Comment on above: Performed By: #### L 500.4100, L501.9520, L100.0100, L502.0250, L400.0001, L500.4050 #### [facility] [address] [place], [address] Eosinophil percentageOrdered By: Evangelina Irby on 03-23-2025 Eosinophils/100 WBC (Bld) 2.1 % 0-[address] [facility] Erythrocyte distribution wid th ratioOrdered By: Evangelina Irby on 03-23-2025 Erythrocyte distribution width (RBC) [Ratio] 13.8 % 11.6-14.[address] [facility] Erythrocyte distribution wid th standard deviationOrdered By: Evangelina Irby on 03-23-2025 Erythrocyte distribution width (RBC) [Ratio] 46.4 fl High 35.1-43.[address] [facility] Glomerular filtration rate ( GFR) estimation/1.73 sq m using serum, plasma, or whole bOrdered By: Evangelina Irby on 03-23-2025 GFR/1.73 sq M.predicted among non-blacks MDRD (S/P/Bld) [Vol rate/Area] 106 mL/min/{1.73_m2} >[address] [facility] Comment on above: mL/min/1.73m2 CKD-EP I Creatinine Equation (2020) Hematocrit Auto (Bld) [Volum e fraction]Ordered By: Evangelina Irby on 03-23-2025 Hematocrit (Bld) [Volume fraction] 39.4 % 37-[address] [facility] Hemoglobin measurementOrdere d By: Evangelina Irby on 03-23-2025 Hemoglobin (Bld) [Mass/Vol] 13.0 g/dL 12.0-15.[address] [facility] Immature granulocytes/100 WB C Auto (Bld)Ordered By: Evangelina Irby on 03-23-2025 Immature granulocytes/100 WBC (Bld) 0.200 % 0.0-0.[address] [facility] Comment on above: IG% - Immature Granu locytes (promyelocytes, myelocytes and metamyelocytes) > 1% indicates that a LEFT SHIFT is Present. Ketones Test strip Ql (U)Ord ered By: Evangelina Irby on 03-23-2025 Ketones Ql (U) Negative Negative [facility] LDL calc ser/plasOrdered By: Evangelina Irby on 03-23-2025 Cholesterol in LDL [Mass/Vol] 145 mg/dL [facility] Comment on above: Jjqudwdupb=114-227 m g/dL & Higher Rbdh=205 mg/dL or greater Laboratory - Chemistry and C hemistry - challengeOrdered By: Evangelina Irby on 03-23-2025 AST [Catalytic activity/Vol] 16 U/L <[address] [facility] Lipid Profileon 03-23-2025 CHOL:HDL 4.[address] [facility] Comment on above: Performed By: #### L 500.4100, L501.9520, L100.0100, L502.0250, L400.0001, L500.4050 #### [facility] [address] [place], [address] Cholesterol [Mass/Vol] 201 mg/dL Normal <=200 [facility] Comment on above: Result Comment: Chol esterol level, Desirable <200 mg/dL Borderline high cholesterol 200-239 mg/dL High cholesterol >=240 mg/dL Recommendations of the NCEP Adult Treatment Panel for the following risk-cutoff thresholds for the [place] population. Performed By: #### L 500.4100, L501.9520, L100.0100, L502.0250, L400.0001, L500.4050 #### [facility] [address] [place], [address] Cholesterol in HDL [Mass/Vol] 46 mg/dL Normal [facility] Comment on above: Result Comment: Deloris onal Cholesterol Education Program (NCEP) guidelines: <40 mg/dL: Low HDL-cholesterol (major risk factor for CHD) >= 60 mg/dL: High HDL-cholesterol (negative risk factor for CHD) HDL-cholesterol is affected by a number of factors, e.g. smoking, exercise, hormones, sex and age. Performed By: #### L 500.4100, L501.9520, L100.0100, L502.0250, L400.0001, L500.4050 #### [facility] [address] [place], [address] Cholesterol in LDL [Mass/Vol] 145 mg/dL Normal [facility] Comment on above: Result Comment: Bord rluhrb=204-108 mg/dL Higher Imuh=851 mg/dL or greater Performed By: #### L 500.4100, L501.9520, L100.0100, L502.0250, L400.0001, L500.4050 #### [facility] [address] [place], [address] Cholesterol in VLDL [Mass/Vol] 11 mg/dL Normal 5-[address] [facility] Comment on above: Performed By: #### L 500.4100, L501.9520, L100.0100, L502.0250, L400.0001, L500.4050 #### [facility] [address] [place], [address] Triglyceride [Mass/Vol] 55 mg/dL Normal [facility] Comment on above: Result Comment: The drugs N-Acetylcysteine and Metamizole may falsely depress this assay. Normal range: <150 mg/dL Borderline High: 150-199 mg/dL High: 200-499 mg/dL Very High: >500 mg/dL Performed By: #### L 500.4100, L501.9520, L100.0100, L502.0250, L400.0001, L500.4050 #### [facility] [address] [place], [address] MCV (mean corpuscular volume ) determinationOrdered By: Evangelina Irby on 03-23-2025 MCV (RBC) [Entitic vol] 91.2 fL 81-[address] [facility] Mean corpuscular hemoglobin (MCH) determinationOrdered By: Evangelina Irby on 03-23-2025 MCH (RBC) [Entitic mass] 30.1 pg 27.0-32.[address] [facility] Mean corpuscular hemoglobin concentration (MCHC) determinationOrdered By: Evangelina Irby on 03-23-2025 MCHC (RBC) [Mass/Vol] 33.0 g/dL 32-36 [facility] Mean platelet volume determi nationOrdered By: Evangelina Irby on 03-23-2025 Platelet mean volume (Bld) [Entitic vol] 11.0 fL 6.2-12.[address] [facility] Microalb:Creat Ratio,Random URon 03-23-2025 Creatinine [Mass/Vol] 74.30 mg/dL Normal 28.00- 217. [address] [facility] Comment on above: Performed By: #### L 500.4100, L501.9520, L100.0100, L502.0250, L400.0001, L500.4050 #### [facility] [address] [place], [place], [phone] MALB:CREAT UNABLE TO CALCULATE Normal [facility] Comment on above: Performed By: #### L 500.4100, L501.9520, L100.0100, L502.0250, L400.0001, L500.4050 #### [facility] [address] [place], [place], [phone] MICROALBUMIN,UR < 12.0 Normal NO RANGE EST. [facility] Comment on above: Performed By: #### L 500.4100, L501.9520, L100.0100, L502.0250, L400.0001, L500.4050 #### [facility] [address] [place], [place], [phone] Microalbumin/creat ratio urO rdered By: Evangelina Irby on 03-23-2025 Urine microalbumin/creatinin e ratio measurement UNABLE TO CALCULATE mg/g CRE [facility] Microscopic analysis of urin e for red blood cells (RBC)Ordered By: Evangelina Irby on 03-23-2025 Microscopic analysis of urine for red blood cells (RBC) 0 SEEN /hpf 0-[address] [facility] Monocyte percentageOrdered B y: Evangelina Irby on 03-23-2025 Monocytes/100 WBC (Bld) 7.9 % 0-[address] [facility] Mucus LM Ql (Urine sed)Order ed By: Evangelina Irby on 03-23-2025 Mucus Ql (Urine sed) 0 SEEN /hpf [facility] Neutrophil percentageOrdered By: Evangelina Irby on 03-23-2025 Neutrophils/100 WBC (Bld) 56.6 % 47-70 [facility] Nitrite Test strip Ql (U)Ord ered By: Evangelina Irby on 03-23-2025 Nitrite Ql (U) Negative Negative [facility] Nucleated red blood cell per centageOrdered By: Evangelina Irby on 03-23-2025 Nucleated RBC/100 WBC (Bld) [Ratio] 0 % 0-[address] [facility] Platelet countOrdered By: Jorge Irby on 03-23-2025 Platelets (Bld) [#/Vol] 230 10*3/uL 150-[address] [facility] Potassium measurement (mass/ volume)Ordered By: Evangelina Irby on 03-23-2025 Potassium (Unsp spec) [Mass/Vol] 4.5 mmol/L 3.3-5.[address] [facility] Protein Test strip Ql (U)Ord ered By: Evangelina Irby on 03-23-2025 Protein Ql (U) 15 mg/dl High Negative [facility] RBC Auto (Bld) [#/Vol]Ordere d By: Evangelina Irby on 03-23-2025 RBC (Bld) [#/Vol] 4.32 10*6/uL 4.2-5.4 [facility] Random urine creatinine avis urement (mass/volume)Ordered By: Evangelina Irby on 03-23-2025 Creatinine Unsp time (U) [Mass/Vol] 74.30 mg/dL 28.00-217. [address] [facility] Screening total cholesterol/ high density lipoprotein (HDL) cholesterol ratioOrdered By: Evangelina Irby on 03-23-2025 Cholesterol.total/Chol esterol in HDL [Mass ratio] 4.42 {ratio} [facility] Serum creatinine measurement (mass/volume)Ordered By: Evangelina Irby on 03-23-2025 Creatinine [Mass/Vol] 0.64 mg/dL Low 0.70-1.20 [facility] Serum globulin measurementOr dered By: Evangelina Irby on 03-23-2025 Globulin (S) [Mass/Vol] 3.2 g/dL 2.2-4.[address] [facility] Serum glucose measurement (m ass/volume)Ordered By: Evangelina Irby on 03-23-2025 Glucose [Mass/Vol] 105 mg/dL High 70-99 [facility] Serum or plasma alanine diamond otransferase (ALT) measurementOrdered By: Evangelina Irby on 03-23-2025 ALT [Catalytic activity/Vol] 21 U/L <[address] [facility] Serum or plasma albumin avis urement (mass/volume)Ordered By: Evangelina Irby on 03-23-2025 Albumin [Mass/Vol] 4.3 g/dL 3.5-5.0 [facility] Serum or plasma albumin/glob ulin mass ratioOrdered By: Evangelina Irby on 03-23-2025 Albumin/Globulin [Mass ratio] 1.4 {ratio} 0.9-2.[address] [facility] Serum or plasma alkaline yvette sphatase measurementOrdered By: Evangelina Irby on 03-23-2025 ALP [Catalytic activity/Vol] 50 U/L 35-[address] [facility] Serum or plasma calcium avis urement (mass/volume)Ordered By: Evangelina Irby on 03-23-2025 Calcium [Mass/Vol] 9.4 mg/dL 7.6-11.0 [facility] Serum or plasma cholesterol in HDL measurement (mass/volume)Ordered By: Evangelina Irby on 03-23-2025 Cholesterol in HDL [Mass/Vol] 46 mg/dL >[address] [facility] Comment on above: National Cholesterol Education Program (NCEP) guidelines:<40 mg/dL: Low HDL-cholesterol (major risk factor for CHD)>= 60 mg/dL: High HDL-cholesterol (negative risk factor for CHD)HDL-cholesterol is affected by a number of factors, e.g. smoking, exercise, hormones, sex and age. Serum or plasma cholesterol measurement (mass/volume)Ordered By: Evangelina Irby on 03-23-2025 Cholesterol [Mass/Vol] 201 mg/dL <201 [facility] Comment on above: Cholesterol level, D esirable <200 mg/dLBorderline high cholesterol 200-239 mg/dLHigh cholesterol >=240 mg/dLRecommendations of the NCEP Adult Treatment Panel for the following risk-cutoff thresholds for the [place] population. Serum or plasma urea nitroge n measurement (mass/volume)Ordered By: Evangelina Irby on 03-23-2025 Urea nitrogen [Mass/Vol] 23 mg/dL High 4-[address] [facility] Sodium levelOrdered By: Maricarmen carlos Surekha on 03-23-2025 Sodium [Moles/Vol] 140 mmol/L 133-145 [facility] Squamous epithelial cells de tection in urine sediment by light microscopyOrdered By: Evangelina Irby on 03-23-2025 Epithelial cells.squamous LM Ql (Urine sed) 0-5 SEEN /hpf 5- [facility] TSH DL <= 0.005 mIU/L QnOrde red By: Evangelina Irby on 03-23-2025 TSH Qn 2.390 uIU/mL 0.300-4.[address] [facility] Thyroid Stim Hormone (TSH)on 03-23-2025 TSH 2.390 uIU/mL Normal 0.300-4.[address] [facility] Comment on above: Performed By: #### L 500.4100, L501.9520, L100.0100, L502.0250, L400.0001, L500.4050 #### [facility] [address] [place], [place], [phone] Total proteinOrdered By: Rachel Irby on 03-23-2025 Protein [Mass/Vol] 7.4 g/dL 5.9-8.4 [facility] Triglycerides measurementOrd ered By: Evangelina Irby on 03-23-2025 Triglyceride [Mass/Vol] 55 mg/dL <[address] [facility] Comment on above: The drugs N-Acetylcy steine and Metamizole may falsely depress this assay. Normal range: <150 mg/dLBorderline High: 150-199 mg/dLHigh: 200-499 mg/dLVery High: >500 mg/dL Urinalysis, Completeon 03-23 EPI,SQUAMOUS 0-5 SEEN Normal - [facility] Comment on above: Order Comment: Urine , Random Performed By: #### L 500.4100, L501.9520, L100.0100, L502.0250, L400.0001, L500.4050 #### [facility] [address] [place], [address] BACTERIA 0 SEEN Normal None Seen [facility] Comment on above: Order Comment: Urine , Random Performed By: #### L 500.4100, L501.9520, L100.0100, L502.0250, L400.0001, L500.4050 #### [facility] [address] [place], [address] Mucus Ql (Urine sed) 0 SEEN Normal [facility] Comment on above: Order Comment: Urine , Random Performed By: #### L 500.4100, L501.9520, L100.0100, L502.0250, L400.0001, L500.4050 #### [facility] [address] [place], [address] RBC 0 SEEN Normal 0-[address] [facility] Comment on above: Order Comment: Urine , Random Performed By: #### L 500.4100, L501.9520, L100.0100, L502.0250, L400.0001, L500.4050 #### [facility] [address] [place], [address] WBC 0 SEEN Normal 0-[address] [facility] Comment on above: Order Comment: Urine , Random Performed By: #### L 500.4100, L501.9520, L100.0100, L502.0250, L400.0001, L500.4050 #### [facility] [address] [place], [address] Urine albumin measurement wi detection limit of 20 mg/L or less (mass/volume)Ordered By: Evangelina Irby on 03-23-2025 Albumin DL <= 20 mg/L (U) [Mass/Vol] < 12.0 mg/L NO RANGE EST. [facility] Urine clarityOrdered By: Rachel Irby on 03-23-2025 Clarity (U) Clear Clear [facility] Urine color determinationOrd ered By: Evangelina Irby on 07-01-2025 Color (U) Yellow Yellow [facility] Urine glucose detectionOrder ed By: Evangelina Irby on 03-23-2025 Glucose Ql (U) Normal mg/dl Normal [facility] Urine leukocyte esterase det ection by dipstickOrdered By: Evangelina Irby on 03-23-2025 Leukocyte esterase Test strip Ql (U) Negative Negative [facility] Urine pHOrdered By: Evangelina Irby on 03-23-2025 pH (U) 6.0 [pH] 5.0 - 8.[address] [facility] Urine sediment bacteria coun t by microscopy (number/high power field)Ordered By: Evangelina Irby on 03-23-2025 Bacteria LM.HPF (Urine sed) [#/Area] 0 /[HPF] None Seen [facility] Urine specific gravity measu rementOrdered By: Evangelina Irby on 03-23-2025 Specific gravity (U) [Rel density] 1.015 1.002-1.[address] [facility] Urine urobilinogen measureme ntOrdered By: Evangelina Irby on 03-23-2025 Urobilinogen Ql (U) Normal mg/dl Normal [facility] White blood cell (WBC) count Ordered By: Evangelina Irby on 03-23-2025 WBC (Bld) [#/Vol] 6.1 10*3/uL 4.4-11.0 [facility] White blood cell countOrdere d By: Evangelina Irby on 03-23-2025 White blood cell count 0 SEEN /hpf 0-5 [facility] Calculated very low density lipoprotein (VLDL) cholesterol measurementOrdered By: Evangelina Irby on 11-21-2024 VLDL Cholesterol 11 mg/dL 5-[address] [facility] LDL calc ser/plasOrdered By: Evangelina Irby on 11-21-2024 LDL Cholesterol, Calculated 163 mg/dL [facility] Comment on above: Coouimtrbx=365-227 m g/dL & Higher Qsjo=032 mg/dL or greater Lipid Profileon 11-21-2024 CHOL:HDL 4.[address] [facility] Comment on above: Performed By: #### L 500.4100, L501.9520, L100.0100, L502.0250, L400.0001, L500.4050 #### [facility] [address] [place], [address] Cholesterol [Mass/Vol] 228 mg/dL High <=200 [facility] Comment on above: Result Comment: Chol esterol level, Desirable <200 mg/dL Borderline high cholesterol 200-239 mg/dL High cholesterol >=240 mg/dL Recommendations of the NCEP Adult Treatment Panel for the following risk-cutoff thresholds for the [place] population. Performed By: #### L 500.4100, L501.9520, L100.0100, L502.0250, L400.0001, L500.4050 #### [facility] [address] [place], [address] Cholesterol in HDL [Mass/Vol] 54 mg/dL Normal [facility] Comment on above: Result Comment: Deloris onal Cholesterol Education Program (NCEP) guidelines: <40 mg/dL: Low HDL-cholesterol (major risk factor for CHD) >= 60 mg/dL: High HDL-cholesterol (negative risk factor for CHD) HDL-cholesterol is affected by a number of factors, e.g. smoking, exercise, hormones, sex and age. Performed By: #### L 500.4100, L501.9520, L100.0100, L502.0250, L400.0001, L500.4050 #### [facility] [address] [place], [address] Cholesterol in LDL [Mass/Vol] 163 mg/dL Normal [facility] Comment on above: Result Comment: Bord pjynph=125-860 mg/dL Higher Yujf=394 mg/dL or greater Performed By: #### L 500.4100, L501.9520, L100.0100, L502.0250, L400.0001, L500.4050 #### [facility] [address] [place], [address] Cholesterol in VLDL [Mass/Vol] 11 mg/dL Normal 5-[address] [facility] Comment on above: Performed By: #### L 500.4100, L501.9520, L100.0100, L502.0250, L400.0001, L500.4050 #### [facility] [address] [place], [place], [id number] Triglyceride [Mass/Vol] 55 mg/dL Normal [facility] Comment on above: Result Comment: The drugs N-Acetylcysteine and Metamizole may falsely depress this assay. Normal range: <150 mg/dL Borderline High: 150-199 mg/dL High: 200-499 mg/dL Very High: >500 mg/dL Performed By: #### L 500.4100, L501.9520, L100.0100, L502.0250, L400.0001, L500.4050 #### [facility] [address] [place], [place], [id number] Screening total cholesterol/ high density lipoprotein (HDL) cholesterol ratioOrdered By: Evangelina Irby on 11-21-2024 Cholesterol.total/Chol esterol in HDL [Mass ratio] 4.23 {ratio} [facility] Serum or plasma cholesterol in HDL measurement (mass/volume)Ordered By: Evangelina Irby on 11-21-2024 Cholesterol in HDL [Mass/Vol] 54 mg/dL >[address] [facility] Comment on above: National Cholesterol Education Program (NCEP) guidelines:<40 mg/dL: Low HDL-cholesterol (major risk factor for CHD)>= 60 mg/dL: High HDL-cholesterol (negative risk factor for CHD)HDL-cholesterol is affected by a number of factors, e.g. smoking, exercise, hormones, sex and age. Serum or plasma cholesterol measurement (mass/volume)Ordered By: Evangelina Irby on 11-21-2024 Cholesterol [Mass/Vol] 228 mg/dL High <201 [facility] Comment on above: Cholesterol level, D esirable <200 mg/dLBorderline high cholesterol 200-239 mg/dLHigh cholesterol >=240 mg/dLRecommendations of the NCEP Adult Treatment Panel for the following risk-cutoff thresholds for the [place] population. Triglycerides measurementOrd ered By: Evangelina Irby on 11-21-2024 Triglyceride [Mass/Vol] 55 mg/dL <[address] [facility] Comment on above: The drugs N-Acetylcy steine and Metamizole may falsely depress this assay. Normal range: <150 mg/dLBorderline High: 150-199 mg/dLHigh: 200-499 mg/dLVery High: >500 mg/dL Urgent Care Visit Reporton 1 Urgent Care Visit Report [facility] [address] , [address] [place] [address] OFFICE VISIT Date of Service: 07/17/24 MR#: [id number] Acct: [id number] Name: YESSI MOREIRA Rep #: [id number] : 1975 Provider: SAMRA Mccracken Age/Sex: 49/F Location: [facility] Status: Signed Intake Vital Signs 08/28/23 14:08 [...] Intake Visit Reasons: L pointer finger cut/ MABEL BRUSH Allergies No Known Allergies Allergy (Unverified 07/17/24 10:12) PFSH Medical History Asthma Essential hypertension Hypoxemia GLADYS [...] syringe Performing Provider: SAMRA Smith Performing Location: [facility] Administered by: Cassie Christianson on 07/17/24 10:19 Dose Route Admin Location Dispensed Lot Number Expiration Date [facility] Man ufacturer 0.5 mL IM Left Deltoid 0.5 mL [id number] 08/01/26 40521-909-50 [employer] VIS Given Date VIS Provided VIS Publication [...] Cosigner Signature: Date (if applicable) CC: Normal [facility] CBC W/Diff, Automatedon 05-25 Absolute Lymph 1.83 X10 3/uL Normal 0.83-4.[address] [facility] Comment on above: Performed By: #### L 400.0001, L502.0250, L500.4050, L100.0100, L500.4100, L501.9520 #### [facility] [address] [place], [address] Absolute Neut 4.2 X10 3/uL Normal 2.0-7.[address] [facility] Comment on above: Performed By: #### L 400.0001, L502.0250, L500.4050, L100.0100, L500.4100, L501.9520 #### [facility] [address] [place], [address] Basophils/100 WBC (Bld) 0.3 % Normal 0-[address] [facility] Comment on above: Performed By: #### L 400.0001, L502.0250, L500.4050, L100.0100, L500.4100, L501.9520 #### [facility] [address] [place], [address] Eosinophils/100 WBC (Bld) 1.5 % Normal 0-[address] [facility] Comment on above: Performed By: #### L 400.0001, L502.0250, L500.4050, L100.0100, L500.4100, L501.9520 #### [facility] [address] [place], [address] Erythrocyte distribution width (RBC) [Ratio] 14.8 % High 11.6-14.[address] [facility] Comment on above: Performed By: #### L 400.0001, L502.0250, L500.4050, L100.0100, L500.4100, L501.9520 #### [facility] [address] [place], [address] Hematocrit (Bld) [Volume fraction] 38.0 % Normal 37-[address] [facility] Comment on above: Performed By: #### L 400.0001, L502.0250, L500.4050, L100.0100, L500.4100, L501.9520 #### [facility] [address] [place], [address] Hemoglobin (Bld) [Mass/Vol] 12.3 g/dL Normal 12.0-15.[address] [facility] Comment on above: Performed By: #### L 400.0001, L502.0250, L500.4050, L100.0100, L500.4100, L501.9520 #### [facility] [address] [place], [address] IG% 0.300 Normal 0.0-0.[address] [facility] Comment on above: Result Comment: IG% - Immature Granulocytes (promyelocytes, myelocytes and metamyelocytes) > 1% indicates that a LEFT SHIFT is Present. Performed By: #### L 400.0001, L502.0250, L500.4050, L100.0100, L500.4100, L501.9520 #### [facility] [address] [place], [address] Lymphocytes/100 WBC (Bld) 27.4 % Normal 19-[address] [facility] Comment on above: Performed By: #### L 400.0001, L502.0250, L500.4050, L100.0100, L500.4100, L501.9520 #### [facility] [address] [place], [address] MCH (RBC) [Entitic mass] 29.1 pg Normal 27.0-32.[address] [facility] Comment on above: Performed By: #### L 400.0001, L502.0250, L500.4050, L100.0100, L500.4100, L501.9520 #### [facility] [address] [place], [address] MCHC (RBC) [Mass/Vol] 32.4 g/dL Normal 32-36 [facility] Comment on above: Performed By: #### L 400.0001, L502.0250, L500.4050, L100.0100, L500.4100, L501.9520 #### [facility] [address] [place], [address] MCV (RBC) [Entitic vol] 90.0 fL Normal 81-[address] [facility] Comment on above: Performed By: #### L 400.0001, L502.0250, L500.4050, L100.0100, L500.4100, L501.9520 #### [facility] [address] [place], [address] Monocytes/100 WBC (Bld) 6.9 % Normal 0-[address] [facility] Comment on above: Performed By: #### L 400.0001, L502.0250, L500.4050, L100.0100, L500.4100, L501.9520 #### [facility] [address] [place], [address] Neutrophils/100 WBC (Bld) 63.6 % Normal 47-[address] [facility] Comment on above: Performed By: #### L 400.0001, L502.0250, L500.4050, L100.0100, L500.4100, L501.9520 #### [facility] [address] [place], [address] Nucleated RBC (Bld) [#/Vol] 0 10*3/uL Normal 0-[address] [facility] Comment on above: Performed By: #### L 400.0001, L502.0250, L500.4050, L100.0100, L500.4100, L501.9520 #### [facility] [address] [place], [address] Platelet mean volume (Bld) [Entitic vol] 10.6 fL Normal 6.2-12.[address] [facility] Comment on above: Performed By: #### L 400.0001, L502.0250, L500.4050, L100.0100, L500.4100, L501.9520 #### [facility] [address] [place], [address] Platelets (Bld) [#/Vol] 232 10*3/uL Normal 150-[address] [facility] Comment on above: Performed By: #### L 400.0001, L502.0250, L500.4050, L100.0100, L500.4100, L501.9520 #### [facility] [address] [place], [address] RBC (Bld) [#/Vol] 4.22 10*6/uL Normal 4.2-5.4 [facility] Comment on above: Performed By: #### L 400.0001, L502.0250, L500.4050, L100.0100, L500.4100, L501.9520 #### [facility] [address] [place], [address] RDW SD 47.7 fl High 35.1-43.[address] [facility] Comment on above: Performed By: #### L 400.0001, L502.0250, L500.4050, L100.0100, L500.4100, L501.9520 #### [facility] [address] [place], [address] WBC (Bld) [#/Vol] 6.7 10*3/uL Normal 4.4-11.0 [facility] Comment on above: Performed By: #### L 400.0001, L502.0250, L500.4050, L100.0100, L500.4100, L501.9520 #### [facility] [address] [place], [address] Comprehensive Metabolic Prof [facility] 06-20-2024 Albumin [Mass/Vol] 3.7 g/dL Normal 3.2-5.0 [facility] Comment on above: Order Comment: UAC Performed By: #### L 400.0001, L502.0250, L500.4050, L100.0100, L500.4100, L501.9520 #### [facility] [address] [place], [address] Albumin/Globulin [Mass ratio] 0.9 {ratio} Normal 0.9-2.[address] [facility] Comment on above: Order Comment: UAC Performed By: #### L 400.0001, L502.0250, L500.4050, L100.0100, L500.4100, L501.9520 #### [facility] [address] [place], [address] ALK P 59 U/L Normal 45-[address] [facility] Comment on above: Order Comment: UAC Performed By: #### L 400.0001, L502.0250, L500.4050, L100.0100, L500.4100, L501.9520 #### [facility] [address] [place], [address] ALT [Catalytic activity/Vol] 22 U/L Normal 13-[address] [facility] Comment on above: Order Comment: UAC Performed By: #### L 400.0001, L502.0250, L500.4050, L100.0100, L500.4100, L501.9520 #### [facility] [address] [place], [address] AST [Catalytic activity/Vol] 14 U/L Low 15-[address] [facility] Comment on above: Order Comment: UAC Performed By: #### L 400.0001, L502.0250, L500.4050, L100.0100, L500.4100, L501.9520 #### [facility] [address] [place], [address] Bilirubin [Mass/Vol] 0.70 mg/dL Normal 0.20-1.00 [facility] Comment on above: Order Comment: UAC Result Comment: For patients on eltrombopag therapy, use of Dimension [place] TBIL is not recommended. Performed By: #### L 400.0001, L502.0250, L500.4050, L100.0100, L500.4100, L501.9520 #### [facility] [address] [place], [address] BUN/CRE 20.4 RATIO High 10-[address] [facility] Comment on above: Order Comment: UAC Performed By: #### L 400.0001, L502.0250, L500.4050, L100.0100, L500.4100, L501.9520 #### [facility] [address] [place], [address] CA,Total 9.3 mg/dL Normal 8.5-10.[address] [facility] Comment on above: Order Comment: UAC Performed By: #### L 400.0001, L502.0250, L500.4050, L100.0100, L500.4100, L501.9520 #### [facility] [address] [place], [address] Chloride [Moles/Vol] 105 mmol/L Normal 98-107 [facility] Comment on above: Order Comment: UAC Performed By: #### L 400.0001, L502.0250, L500.4050, L100.0100, L500.4100, L501.9520 #### [facility] [address] [place], [address] CO2 [Moles/Vol] 28.0 mmol/L Normal 21.0-32.[address] [facility] Comment on above: Order Comment: UAC Performed By: #### L 400.0001, L502.0250, L500.4050, L100.0100, L500.4100, L501.9520 #### [facility] [address] [place], [address] Creatinine [Mass/Vol] 0.59 mg/dL Normal 0.55-1.02 [facility] Comment on above: Order Comment: UAC Result Comment: The validity of the calculated GFR GFRAA in patients over 70 years has not been determined. Clinical correlation is essential. Performed By: #### L 400.0001, L502.0250, L500.4050, L100.0100, L500.4100, L501.9520 #### [facility] [address] [place], [address] EST GFR - AA 139 mL/min Normal >[address] [facility] Comment on above: Order Comment: UAC Result Comment: Afri can [place] GFR Calc Performed By: #### L 400.0001, L502.0250, L500.4050, L100.0100, L500.4100, L501.9520 #### [facility] [address] [place], [address] GAP 6 Normal 5-[address] [facility] Comment on above: Order Comment: UAC Performed By: #### L 400.0001, L502.0250, L500.4050, L100.0100, L500.4100, L501.9520 #### [facility] [address] [place], [address] GFR/1.73 sq M.predicted among non-blacks MDRD (S/P/Bld) [Vol rate/Area] 115 mL/min/{1.73_m2} Normal >[address] [facility] Comment on above: Order Comment: UAC Result Comment: Non- GFR Calc Performed By: #### L 400.0001, L502.0250, L500.4050, L100.0100, L500.4100, L501.9520 #### [facility] [address] [place], [address] Globulin (S) [Mass/Vol] 4.1 g/dL Normal 2.2-4.[address] [facility] Comment on above: Order Comment: UAC Performed By: #### L 400.0001, L502.0250, L500.4050, L100.0100, L500.4100, L501.9520 #### [facility] [address] [place], [address] Glucose [Mass/Vol] 102 mg/dL Normal 74-106 [facility] Comment on above: Order Comment: UAC Result Comment: Fast ing Glucose result from 100 to 125 mg/dL suggests IMPAIRED HOMEOSTASIS per A.D.A. criteria. Performed By: #### L 400.0001, L502.0250, L500.4050, L100.0100, L500.4100, L501.9520 #### [facility] [address] [place], [address] Potassium [Moles/Vol] 3.8 mmol/L Normal 3.5-5.1 [facility] Comment on above: Order Comment: UAC Performed By: #### L 400.0001, L502.0250, L500.4050, L100.0100, L500.4100, L501.9520 #### [facility] [address] [place], [address] Sodium [Moles/Vol] 139 mmol/L Normal 136-145 [facility] Comment on above: Order Comment: UAC Performed By: #### L 400.0001, L502.0250, L500.4050, L100.0100, L500.4100, L501.9520 #### [facility] [address] [place], [address] T PROT 7.8 g/dL Normal 6.4-8.[address] [facility] Comment on above: Order Comment: UAC Performed By: #### L 400.0001, L502.0250, L500.4050, L100.0100, L500.4100, L501.9520 #### [facility] [address] [place], [address] Urea nitrogen [Mass/Vol] 12 mg/dL Normal 7-[address] [facility] Comment on above: Order Comment: UAC Performed By: #### L 400.0001, L502.0250, L500.4050, L100.0100, L500.4100, L501.9520 #### [facility] [address] [place], [address] Lipid Profileon 06-20-2024 Cholesterol [Mass/Vol] 196 mg/dL Normal 200 [facility] Comment on above: Order Comment: UAC Result Comment: <200 mg/dL Desirable 200-240 mg/dL Borderline >240 mg/dL High Risk Performed By: #### L 400.0001, L502.0250, L500.4050, L100.0100, L500.4100, L501.9520 #### [facility] [address] [place], [address] Cholesterol in HDL [Mass/Vol] 44 mg/dL Normal [facility] Comment on above: Order Comment: UAC Result Comment: The drugs N-Acetylcysteine and Metamizole may falsely depress this assay. Reference Range HDL <40 mg/dL Low HDL Cholesterol HDL >or= 60 mg/dL High HDL Cholesterol Performed By: #### L 400.0001, L502.0250, L500.4050, L100.0100, L500.4100, L501.9520 #### [facility] [address] [place], [address] Cholesterol in LDL [Mass/Vol] 140 mg/dL High 0-[address] [facility] Comment on above: Order Comment: UAC Performed By: #### L 400.0001, L502.0250, L500.4050, L100.0100, L500.4100, L501.9520 #### [facility] [address] [place], [address] Cholesterol in VLDL [Mass/Vol] 12 mg/dL Normal 5-[address] [facility] Comment on above: Order Comment: UAC Performed By: #### L 400.0001, L502.0250, L500.4050, L100.0100, L500.4100, L501.9520 #### [facility] [address] [place], [address] Triglyceride [Mass/Vol] 60 mg/dL Normal [facility] Comment on above: Order Comment: UAC Result Comment: The drugs N-Acetylcysteine and Metamizole may falsely depress this assay. Serum Triglycerides Reference Interval Normal <150 mg/dL Borderline high 150 - 199 mg/dL High 200 - 499 mg/dL Very High > or = 500 mg/dL Performed By: #### L 400.0001, L502.0250, L500.4050, L100.0100, L500.4100, L501.9520 #### [facility] [address] [place], [address] Microalb:Creat Ratio,Random URon 06-20-2024 Creatinine [Mass/Vol] 25.60 mg/dL Normal NO RAN GE EST. [facility] Comment on above: Performed By: #### L 500.4100, L501.9520, L100.0100, L502.0250, L400.0001, L500.4050 #### [facility] [address] [place], [address] MALB:CRE TNP Normal <30 mg/g CRE [facility] Comment on above: Performed By: #### L 500.4100, L501.9520, L100.0100, L502.0250, L400.0001, L500.4050 #### [facility] [address] [place], [address] MICROALBUMIN,UR < 5.0 Normal NO RANGE EST. [facility] Comment on above: Performed By: #### L 500.4100, L501.9520, L100.0100, L502.0250, L400.0001, L500.4050 #### [facility] [address] [place], [address] Thyroid Stim Hormone (TSH)on 06-20-2024 TSH 1.540 uIU/mL Normal 0.358-3.[address] [facility] Comment on above: Order Comment: Urine , Random Performed By: #### L 500.4100, L501.9520, L100.0100, L502.0250, L400.0001, L500.4050 #### [facility] [address] [place], [address] Urinalysis, Completeon 06-20 BACTERIA RARE Normal None Seen [facility] Comment on above: Order Comment: UAC CLEAN CATCH Performed By: #### L 400.0001, L502.0250, L500.4050, L100.0100, L500.4100, L501.9520 #### [facility] [address] [place], [address] EPI,SQUAMOUS 0-5 SEEN Normal 5-[address] [facility] Comment on above: Order Comment: UAC CLEAN CATCH Performed By: #### L 400.0001, L502.0250, L500.4050, L100.0100, L500.4100, L501.9520 #### [facility] [address] [place], [address] Mucus Ql (Urine sed) 0 SEEN Normal [facility] Comment on above: Order Comment: UAC CLEAN CATCH Performed By: #### L 400.0001, L502.0250, L500.4050, L100.0100, L500.4100, L501.9520 #### [facility] [address] [place], [address] RBC 0 SEEN Normal 0-[address] [facility] Comment on above: Order Comment: UAC CLEAN CATCH Performed By: #### L 400.0001, L502.0250, L500.4050, L100.0100, L500.4100, L501.9520 #### [facility] [address] [place], [address] WBC 0 SEEN Normal 0-[address] [facility] Comment on above: Order Comment: UAC CLEAN CATCH Performed By: #### L 400.0001, L502.0250, L500.4050, L100.0100, L500.4100, L501.9520 #### [facility] [address] [place], [address] Absolute lymphocyte countOrd ered By: Evangelina Irby on 12-07-2023 Lymphocytes Auto (Unsp spec) [#/Vol] 1.70 10*3/uL 0.83-4.[address] [facility] Automated lymphocyte count a s percentage of total leukocytesOrdered By: Evangelina Irby on 12-07-2023 Lymphocytes/100 WBC Auto (Unsp spec) 19.6 % 19-[address] [facility] Basophil percentageOrdered B y: Evangelina Irby on 12-07-2023 Basophil percentage 0 SEEN /hpf 0-5 [facility] Basophils/100 WBC (Bld) 0.2 % 0-[address] [facility] Bilirubin [Mass/Vol] 0.50 mg/dL 0.20-1.00 [facility] Comment on above: For patients on eltr ombopag therapy, use of Dimension [place] TBIL is not recommended. Chloride [Moles/Vol] 106 mmol/L 98-107 [facility] Cholesterol [Mass/Vol] 170 mg/dL <200 [facility] Comment on above: <200 mg/dL Desirable 200-240 mg/dL Borderline >240 mg/dL High Risk Eosinophils/100 WBC (Bld) 1.4 % 0-[address] [facility] Glucose [Mass/Vol] 117 mg/dL 74-106 [facility] Comment on above: Fasting Glucose resu lt from 100 to 125 mg/dL suggests IMPAIRED HOMEOSTASIS per A.D.A. criteria. Hemoglobin (Bld) [Mass/Vol] 12.5 g/dL 12.0-15.[address] [facility] Monocytes/100 WBC (Bld) 7.4 % 0-[address] [facility] Neutrophils (Bld) [#/Vol] 6.2 10*3/uL 2.0-7.[address] [facility] Neutrophils/100 WBC (Bld) 71.1 % 47-[address] [facility] Potassium [Moles/Vol] 3.9 mmol/L 3.5-5.1 [facility] Protein [Mass/Vol] 7.7 g/dL 6.4-8.2 [facility] Sodium [Moles/Vol] 136 mmol/L 136-145 [facility] Triglyceride [Mass/Vol] 65 mg/dL <[address] [facility] Comment on above: The drugs N-Acetylcy steine and Metamizole may falsely depress this assay.Serum Triglycerides Reference Interval Normal <150 mg/dL Borderline high 150 - 199 mg/dL High 200 - 499 mg/dL Very High > or = 500 mg/dL WBC (Bld) [#/Vol] 8.7 10*3/uL 4.4-11.0 [facility] Bilirubin Test strip Ql (U)O rdered By: Evangelina Irby on 12-07-2023 Bilirubin Ql (U) Negative Negative [facility] Determination of erythrocyte mean corpuscular volume (MCV)Ordered By: Evangelina Irby on 12-07-2023 MCV (RBC) [Entitic vol] 90.2 fL 81-[address] [facility] Erythrocyte distribution wid th ratioOrdered By: Evangelina Irby on 12-07-2023 Erythrocyte distribution width (RBC) [Ratio] 14.5 % 11.6-14.[address] [facility] Erythrocyte distribution wid th standard deviationOrdered By: Evangelina Irby on 12-07-2023 Erythrocyte distribution width (RBC) [Entitic vol] 47.5 fL 35.1-43.[address] [facility] Hematocrit Auto (Bld) [Volum e fraction]Ordered By: Evangelina Irby on 12-07-2023 Hematocrit (Bld) [Volume fraction] 37.9 % 37-[address] [facility] Immature granulocytes/100 WB C Auto (Bld)Ordered By: Evangelina Irby on 12-07-2023 Immature granulocytes/100 WBC (Bld) 0.300 % 0.0-0.[address] [facility] Comment on above: IG% - Immature Granu locytes (promyelocytes, myelocytes and metamyelocytes) > 1% indicates that a LEFT SHIFT is Present. Ketones Test strip Ql (U)Ord ered By: Evangelina Irby on 12-07-2023 Ketones Ql (U) Negative Negative [facility] - Chemistry and C hemistry - challengeOrdered By: Evangelina Irby on 12-07-2023 Albumin/Globulin [Mass ratio] 0.8 {ratio} 0.9-2.[address] [facility] ALP [Catalytic activity/Vol] 70 U/L 45-[address] [facility] ALT [Catalytic activity/Vol] 30 U/L 13-[address] [facility] Cholesterol in HDL [Mass/Vol] 34 mg/dL >[address] [facility] Comment on above: The drugs N-Acetylcy steine and Metamizole may falsely depress this assay. Reference Range HDL <40 mg/dL Low HDL Cholesterol HDL >or= 60 mg/dL High HDL Cholesterol Cholesterol in LDL [Mass/Vol] 123 mg/dL 0-[address] [facility] CO2 [Moles/Vol] 26.0 mmol/L 21.0-32.[address] [facility] Globulin (S) [Mass/Vol] 4.2 g/dL 2.2-4.[address] [facility] Urea nitrogen/Creatinine [Mass ratio] 12.6 mg/mg 10-[address] [facility] - Hematology and Cell countsOrdered By: Evangelina Irby on 12-07-2023 MCH (RBC) [Entitic mass] 29.8 pg 27.0-32.[address] [facility] MCHC (RBC) [Mass/Vol] 33.0 g/dL 32-36 [facility] Nucleated RBC/100 WBC (Bld) [Ratio] 0 % 0-[address] [facility] Platelet mean volume (Bld) [Entitic vol] 10.6 fL 6.2-12.[address] [facility] Platelets (Bld) [#/Vol] 239 10*3/uL 150-[address] [facility] Mucus LM Ql (Urine sed)Order ed By: Evangelina Irby on 12-07-2023 Mucus Ql (Urine sed) 0 SEEN /hpf [facility] Nitrite Test strip Ql (U)Ord ered By: Evangelina Irby on 12-07-2023 Nitrite Ql (U) Negative Negative [facility] No Panel InformationOrdered By: Evangelina Irby on 12-07-2023 Estimated GFR (MDRD) Amer 127 mL/min >[address] [facility] Comment on above: GFR Calc Estimated GFR (MDRD) Non-Af Amer 105 mL/min >[address] [facility] Comment on above: Non- GFR Calc Urine Microalbumin/Creatinin e Ratio TNP [facility] Comment on above: Test not performed Urine RBC 0 SEEN /hpf 0-[address] [facility] VLDL Cholesterol 13 mg/dL 5-[address] [facility] Protein Test strip Ql (U)Ord ered By: Evangelina Irby on 12-07-2023 Protein Ql (U) Negative Negative [facility] RBC Auto (Bld) [#/Vol]Ordere d By: Evangelina Irby on 12-07-2023 RBC (Bld) [#/Vol] 4.20 10*6/uL 4.2-5.4 [facility] Serum or plasma calcium avis urement (mass/volume)Ordered By: Evangelina Irby on 12-07-2023 Calcium [Mass/Vol] 8.9 mg/dL 8.5-10.1 [facility] Serum or plasma creatinine m easurement (mass/volume)Ordered By: Evangelina Irby on 12-07-2023 Creatinine [Mass/Vol] 0.64 mg/dL 0.55-1.02 [facility] Comment on above: The validity of the calculated GFR & GFRAA in patients over 70 years has not been determined. Clinical correlation is essential. Serum or plasma urea nitroge n measurement (mass/volume)Ordered By: Evangelina Irby on 12-07-2023 Urea nitrogen [Mass/Vol] 8 mg/dL 7-[address] [facility] Squamous epithelial cells de tection in urine sediment by light microscopyOrdered By: Evangelina Irby on 12-07-2023 Epithelial cells.squamous LM Ql (Urine sed) 0-5 SEEN /hpf 5-[address] [facility] Thin prep Papanicolaou smear with manual screeningOrdered By: Evangelina Irby on 12-07-2023 Thin prep Papanicolaou smear with manual screening 3.5 g/dL 3.2-5.[address] [facility] Thin prep Papanicolaou smear with manual screening 18 U/L 15-[address] [facility] Thin prep Papanicolaou smear with manual screening 4 5-[address] [facility] Thin prep Papanicolaou smear with manual screening < 5.0 mg/L NO RANGE EST. [facility] Urine blood detectionOrdered By: Evangelina Irby on 12-07-2023 RBC Ql (U) Negative Negative [facility] Urine clarityOrdered By: Rachel Irby on 12-07-2023 Clarity (U) Clear Clear [facility] Urine color determinationOrd ered By: Evangelina Irby on 12-07-2023 Color (U) Yellow Yellow [facility] Urine creatinine measurement (mass/volume)Ordered By: Evangelina Irby on 12-07-2023 Creatinine (U) [Mass/Vol] 67.40 mg/dL NO RANGE EST. [facility] Urine glucose detectionOrder ed By: Evangelina Irby on 12-07-2023 Glucose Ql (U) Normal mg/dl Normal [facility] Urine leukocyte esterase det ection by dipstickOrdered By: Evangelina Irby on 12-07-2023 Leukocyte esterase Test strip Ql (U) 25 /ul Negative [facility] Urine pHOrdered By: Evangelina Irby on 12-07-2023 pH (U) 6.5 [pH] 5.0 - 8.[address] [facility] Urine sediment bacteria coun t by microscopy (number/high power field)Ordered By: Evangelina Irby on 12-07-2023 Bacteria LM.HPF (Urine sed) [#/Area] 0 /[HPF] None Seen [facility] Urine specific gravity measu rementOrdered By: Evangelina Irby on 12-07-2023 Specific gravity (U) [Rel density] 1.010 1.002-1.[address] [facility] Urine urobilinogen measureme ntOrdered By: Evangelina Irby on 12-07-2023 Urobilinogen Ql (U) Normal mg/dl Normal [facility] Whole blood hemoglobin A1c/t otal hemoglobin ratio (mass fraction)Ordered By: Evangelina Irby on 12-07-2023 HbA1c (Bld) [Mass fraction] 6.0 % 3.8-5.[address] [facility] Comment on above: Normal < 5.7 % Predi abetic 5.7 - 6.4 % Diabetic >or= 6.5 % Please note range changes. Laboratory - Chemistry and C hemistry - challengeOrdered By: Dr. Maxwell on 03-04-2023 Natriuretic peptide B (Bld) [Mass/Vol] 17.2 pg/mL 0-[address] [facility] Basophil percentageOrdered B y: Dr. Maxwell on 11-22-2022 WBC (Bld) [#/Vol] 9.4 10*3/uL 4.4-11.0 [facility] Blood erythrocytes count (nu mber/volume)Ordered By: Dr. Maxwell on 11-22-2022 RBC (Bld) [#/Vol] 4.37 10*6/uL 4.2-5.4 [facility] Blood hemoglobin measurement (mass/volume)Ordered By: Dr. Maxwell on 11-22-2022 Hemoglobin (Bld) [Mass/Vol] 13.2 g/dL 12.0-15.[address] [facility] Blood platelet mean volumeOr dered By: Dr. Maxwell on 11-22-2022 Platelet mean volume (Bld) [Entitic vol] 10.9 fL 6.2-12.[address] [facility] Determination of erythrocyte mean corpuscular volume (MCV)Ordered By: Dr. Maxwell on 11-22-2022 MCV (RBC) [Entitic vol] 90.6 fL 81-[address] [facility] Hematocrit Auto (Bld) [Volum e fraction]Ordered By: Dr. Maxwell on 11-22-2022 Hematocrit (Bld) [Volume fraction] 39.6 % 37-[address] [facility] - Chemistry and C hemistry - challengeOrdered By: Dr. Maxwell on 11-22-2022 Natriuretic peptide B (Bld) [Mass/Vol] 12.8 pg/mL 0-[address] [facility] - Hematology and Cell countsOrdered By: Dr. Maxwell on 11-22-2022 Erythrocyte distribution width (RBC) [Entitic vol] 46.1 fL 35.1-43.[address] [facility] Erythrocyte distribution width (RBC) [Ratio] 13.8 % 11.6-14.[address] [facility] MCH (RBC) [Entitic mass] 30.2 pg 27.0-32.[address] [facility] MCHC Auto (RBC) [Mass/Vol]Or dered By: Dr. Maxwell on 11-22-2022 MCHC (RBC) [Mass/Vol] 33.3 g/dL 32-36 [facility] Platelets bldOrdered By: Dr. Maxwell on 11-22-2022 Platelets (Bld) [#/Vol] 247 10*3/uL 150-[address] [facility] HPV Auto Reflex PAP ([id number])O rdered By: Fur Puller on 11-02-2022 HPV Auto Reflex PAP ([id number]) SPRCS Normal [facility] Work Phone: Comment on above: NEGATIVE FOR INTRAEP ITHELIAL LESION OR MALIGNANCY.Satisfactory for evaluation. Endocervical and/or squamous metaplasticcells (endocervical component) are present.Z01.419Krissy Marcus Video Coordinator (ASCP) Source.............C ervixNo. of containers..01 ThinPrep VialPERFORMED BY: [address] [id number] Information: [id number] HPV Auto Reflex PAP ([id number]) . Normal [facility]; [facility] Work Phone: Comment on above: Source.............C ervixNo. of containers..01 ThinPrep VialPERFORMED BY: [address] [id number] Information: [id number] HPV Auto Reflex PAP ([id number]) PAPSMR Normal [facility]; [facility] [...] Source.............C ervixNo. of containers..01 ThinPrep VialPERFORMED BY: [address] [id number] Information: [id number] Absolute lymphocyte counton 01-27-2022 Lymphocytes Auto (Unsp spec) [#/Vol] 2.12 10*3/uL 0.83-4.[address] [facility] Work Phone: Basophil percentageon 2021 Basophil percentage 0-5 SEEN /hpf [facility] Work Phone: Basophils/100 WBC (Bld) 0.3 % 0-[address] [facility] Work Phone: Bilirubin [Mass/Vol] 0.40 mg/dL 0.20-1.00 [facility] Work Phone: Comment on above: For patients on eltr ombopag therapy, use of Dimension [place] TBIL is not recommended. Chloride [Moles/Vol] 107 mmol/L 98-107 [facility] Work Phone: Cholesterol [Mass/Vol] 169 mg/dL <200 [facility] Work Phone: Comment on above: <200 mg/dL Desirable 200-240 mg/dL Borderline >240 mg/dL High Risk Eosinophils/100 WBC (Bld) 1.8 % 0-[address] [facility] Work Phone: Glucose [Mass/Vol] 116 mg/dL 74-106 [facility] Work Phone: Comment on above: Fasting Glucose resu lt from 100 to 125 mg/dL suggests IMPAIRED HOMEOSTASIS per A.D.A. criteria. Neutrophils (Bld) [#/Vol] 4.7 10*3/uL 2.0-7.[address] [facility] Work Phone: Neutrophils/100 WBC (Bld) 61.8 % 47-[address] [facility] Work Phone: Potassium [Moles/Vol] 3.8 mmol/L 3.5-5.1 [facility] Work Phone: Protein [Mass/Vol] 7.9 g/dL 6.4-8.2 [facility] Work Phone: Sodium [Moles/Vol] 137 mmol/L 136-145 [facility] Work Phone: Triglyceride [Mass/Vol] 75 mg/dL [facility] Work Phone: Comment on above: The drugs N-Acetylcy steine and Metamizole may falsely depress this assay.Serum Triglycerides Reference Interval Normal <150 mg/dL Borderline high 150 - 199 mg/dL High 200 - 499 mg/dL Very High > or = 500 mg/dL WBC (Bld) [#/Vol] 7.6 10*3/uL 4.4-11.0 [facility] Work Phone: Bilirubin Test strip Ql (U)o n 01-27-2022 Bilirubin Ql (U) Negative Negative [facility] Work Phone: Blood erythrocytes count (nu mber/volume)on 01-27-2022 RBC (Bld) [#/Vol] 4.54 10*6/uL 4.2-5.4 [facility] Work Phone: Blood hemoglobin measurement (mass/volume)on 01-27-2022 Hemoglobin (Bld) [Mass/Vol] 13.6 g/dL 12.0-15.[address] [facility] Work Phone: Blood lymphocytes/100 leukoc yteson 01-27-2022 Lymphocytes/100 WBC (Bld) 28.0 % 19-[address] [facility] Work Phone: Blood monocytes/100 leukocyt eson 01-27-2022 Monocytes/100 WBC (Bld) 7.7 % 0-[address] [facility] Work Phone: Blood platelet mean volumeon 01-27-2022 Platelet mean volume (Bld) [Entitic vol] 10.8 fL 6.2-12.[address] [facility] Work Phone: Determination of erythrocyte mean corpuscular volume (MCV)on 01-27-2022 MCV (RBC) [Entitic vol] 89.2 fL 81-[address] [facility] Work Phone: Hematocrit Auto (Bld) [Volum e fraction]on 01-27-2022 Hematocrit (Bld) [Volume fraction] 40.5 % 37-[address] [facility] Work Phone: Ketones Test strip Ql (U)on 01-27-2022 Ketones Ql (U) Negative Negative [facility] Work Phone: Laboratory - Chemistry and C hemistry - challengeon 01-27-2022 ALP [Catalytic activity/Vol] 66 U/L 45-[address] [facility] Work Phone: ALT [Catalytic activity/Vol] 31 U/L 13-[address] [facility] Work Phone: CO2 [Moles/Vol] 26.0 mmol/L 21.0-32.[address] [facility] Work Phone: Globulin (S) [Mass/Vol] 4.3 g/dL 2.2-4.[address] [facility] Work Phone: Urea nitrogen/Creatinine [Mass ratio] 15.3 mg/mg 10-[address] [facility] Work Phone: Laboratory - Hematology and Cell countson 01-27-2022 Erythrocyte distribution width (RBC) [Entitic vol] 44.8 fL 35.1-43.[address] [facility] Work Phone: Erythrocyte distribution width (RBC) [Ratio] 13.7 % 11.6-14.[address] [facility] Work Phone: Immature granulocytes/100 WBC (Bld) 0.400 % 0.0-0.[address] [facility] Work Phone: Comment on above: IG% - Immature Granu locytes (promyelocytes, myelocytes and metamyelocytes) > 1% indicates that a LEFT SHIFT is Present. MCH (RBC) [Entitic mass] 30.0 pg 27.0-32.[address] [facility] Work Phone: Nucleated RBC/100 WBC (Bld) [Ratio] 0 % 0-[address] [facility] Work Phone: MCHC Auto (RBC) [Mass/Vol]on 01-27-2022 MCHC (RBC) [Mass/Vol] 33.6 g/dL 32-36 [facility] Work Phone: Mucus LM Ql (Urine sed)on Mucus Ql (Urine sed) 0 SEEN /hpf [facility] Work Phone: Nitrite Test strip Ql (U)on 01-27-2022 Nitrite Ql (U) Negative Negative [facility] Work Phone: No Panel Informationon 01-27 Estimated GFR (MDRD) Amer 124 mL/min >[address] [facility] Work Phone: Comment on above: GFR Calc Estimated GFR (MDRD) Non-Af Amer 102 mL/min >[address] [facility] [facility] [facility] Work Phone: Comment on above: Non- GFR Calc Urine Microalbumin/Creatinin e Ratio 8.2 mg/g CRE <[address] [facility] Work Phone: Platelets bldon 01-27-2022 Platelets (Bld) [#/Vol] 269 10*3/uL 150-[address] [facility] Work Phone: Protein Test strip Ql (U)on 01-27-2022 Protein Ql (U) 15 mg/dl Negative [facility] Work Phone: Serum or plasma albumin avis urement (mass/volume)on 01-27-2022 Albumin [Mass/Vol] 3.6 g/dL 3.2-5.0 [facility] Work Phone: Serum or plasma albumin/glob ulin mass ratioon 01-27-2022 Albumin/Globulin [Mass ratio] 0.8 {ratio} 0.9-2.[address] [facility] Work Phone: Serum or plasma calcium avis urement (mass/volume)on 01-27-2022 Calcium [Mass/Vol] 8.5 mg/dL 8.5-10.1 [facility] Work Phone: Serum or plasma cholesterol in HDL measurement (mass/volume)on 01-27-2022 Cholesterol in HDL [Mass/Vol] 35 mg/dL [facility] Work Phone: Comment on above: The drugs N-Acetylcy steine and Metamizole may falsely depress this assay. Reference Range HDL <40 mg/dL Low HDL Cholesterol HDL >or= 60 mg/dL High HDL Cholesterol Serum or plasma cholesterol in VLDL measurement (mass/volume)on 01-27-2022 Cholesterol in VLDL [Mass/Vol] 15 mg/dL 5-[address] [facility] Work Phone: Serum or plasma creatinine m easurement (mass/volume)on 01-27-2022 Creatinine [Mass/Vol] 0.65 mg/dL 0.55-1.02 [facility] Work Phone: Comment on above: The validity of the calculated GFR & GFRAA in patients over 70 years has not been determined. Clinical correlation is essential. Serum or plasma low density lipoprotein (LDL) cholesterol measurement (mass/volume)on 01-27-2022 Cholesterol in LDL [Mass/Vol] 119 mg/dL 0-[address] [facility] Work Phone: Serum or plasma urea nitroge n measurement (mass/volume)on 01-27-2022 Urea nitrogen [Mass/Vol] 10 mg/dL 7-[address] [facility] Work Phone: Squamous epithelial cells de tection in urine sediment by light microscopyon 01-27-2022 Epithelial cells.squamous LM Ql (Urine sed) 0-5 SEEN /hpf [facility] Work Phone: Thin prep Papanicolaou smear with manual screeningon 01-27-2022 Thin prep Papanicolaou smear with manual screening 16 U/L 15-[address] [facility] Work Phone: Thin prep Papanicolaou smear with manual screening 4 5-[address] [facility] Work Phone: Thin prep Papanicolaou smear with manual screening 15.7 mg/L NO RANGE EST. [facility] Work Phone: Urine blood detectionon RBC Ql (U) Negative Negative [facility] Work Phone: RBC Ql (U) 0 SEEN /hpf [facility] Work Phone: Urine clarityon 01-27-2022 Clarity (U) Clear Clear [facility] Work Phone: Urine color determinationon 01-27-2022 Color (U) Yellow Yellow [facility] Work Phone: Urine creatinine measurement (mass/volume)on 01-27-2022 Creatinine (U) [Mass/Vol] 191.00 mg/dL NO RANGE EST. [facility] Work Phone: Urine glucose detectionon Glucose Ql (U) Normal mg/dl Normal [facility] Work Phone: Urine leukocyte esterase det ection by dipstickon 01-27-2022 Leukocyte esterase Test strip Ql (U) 25 /ul Negative [facility] Work Phone: Urine pHon 01-27-2022 pH (U) 7.0 [pH] [facility] Work Phone: Urine sediment bacteria coun t by microscopy (number/high power field)on 01-27-2022 Bacteria LM.HPF (Urine sed) [#/Area] 0 /[HPF] None Seen [facility] Work Phone: Urine specific gravity measu rementon 01-27-2022 Specific gravity (U) [Rel density] 1.[address] [facility] Work Phone: Urobilinogen Auto test strip Ql (U)on 01-27-2022 Urobilinogen Ql (U) 1 mg/dl Normal [facility] Work Phone: CNOVon 10-10-2017 CNOV Office Visit (UCWSTR) Ishaan MOREIRA ([id number]) 1975 FDate Time Provider Department10/10/17 5:45 PM DOROTHY MCGOWAN) WS During your visit today, we recorded the following information about you: Temperature Pulse Respiration Blood pressure 97.2 degrees 84/minute 16/minute 128/88 Weight 118.8 kgDorothy Mcgowan CNP 10/10/2017 6:[address] [facility] Yessinilda Moreira is a 42 year old female [...] andcongestion: brands include Murtaza Med, Simply saline, Toulon nasal spray, or eventhe generic store brand [...] andcongestion: brands include Murtaza Med, Simply saline, Toulon nasal spray, or eventhe generic store brand [...] 10/10/2017(No Known Allergies)Date Reviewed: 10/10/2017Reviewed by: Dorothy [facility]) [place] - Fully AssessedReason for Visit: Pain, Sinus [...] congestion: brands include Murtaza Med, Simply saline, T[place]on nasal spray, or even the generic store [...] Status:Closed by DOROTHY MCGOWAN CNP on 10/10/17 [facility] PROGRESSon 10-10-2017 PROGRESS HNO ID: [id number]: Dorothy Spence) Haydenervice: (none)Author Type: Nurse PractitionerType: [...] congestion: brands include Murtaza Med, Simply saline, T[place]on nasal spray,or even the generic store brand [...] were discussed in detail warranting prompt ER evaluation..wa Normal [facility] CNOVon 09-29-2017 CNOV Office Visit (UCWSTR) Ishaan MOREIRA Neymar ([id number]) 1975 FDate Time Provider Department09/29/17 1:30 PM GELA GOMEZ (LORENA) UCWSTR During your visit today, we recorded the following information about you: Temperature Pulse Respiration Blood pressure 97.5 degrees 78/minute 12/minute 140/96 Weight 117.5 kgStephanineymar LORENA Gomez 09/29/2017 1:55 PM SignedPatient is a 42 [...] Status:Closed by GELA GOMEZ CNP on 09/29/17 [facility] PROGRESSon 09-29-2017 PROGRESS HNO ID: [id number]: Gela (Lorena) Tigist: (none)Author Type: Nurse PractitionerType: [...] physician in 3-5 days if symptoms persist Yady Gomez CNP Normal [facility] Vital Signs Date Time Vital Sign Value Performing Clinician Facility 08-28-2023 14:08-0500 Body height 172.[address] Evangelina rIby Work Phone: [facility] 08-28-2023 14:08-0500 Body mass index (BMI) [Ratio] 42.5 kg/m2 Dr. Evangelina Irby Work Phone: [facility] 08-28-2023 14:08-0500 Body weight [address] Evangelina Irby Work Phone: [facility] 08-28-2023 14:08-0500 Diastolic blood pressure 80 mm[Hg] Dr. Evangelina Irby Work Phone: [facility] 08-28-2023 14:08-0500 Heart rate 75 /min Dr. Evangelina Irby Work Phone: [facility] 08-28-2023 14:08-0500 Respiratory rate 16 /min Dr. Evangelina Irby Work Phone: [facility] 08-28-2023 14:08-0500 Systolic blood pressure 144 mm[Hg] Dr. Evangelina Irby Work Phone: [facility] 11-02-2022 07:22-0500 Body [facility] Work Phone: 11-02-2022 07:22-0500 Body mass index (BMI) [Ratio] 58.17 kg/m2 Yohan [facility]; [facility] Work Phone: 11-02-2022 07:22-0500 Body surface area Derived from formula 2.12 m2 Yohan Benson [facility]; [facility] Work Phone: 11-02-2022 07:22-0500 Body temperature 96.8 [degF] sarah Marcelino [facility] Comprehensiv e Internal Medicine; [facility] Work Phone: 11-02-2022 07:22-0500 Body weight 128.[address] [facility]; [facility] Work Phone: 11-02-2022 07:22-0500 Diastolic blood pressure 80 mm[Hg] sarah [facility]; [facility] Work Phone: Comment on above: Patient Position: Sitting; Cuff Location : Left Arm; Cuff Size: Standard 11-02-2022 07:22-0500 Heart rate 86 /min Yohan Benson [facility]; [facility] Work Phone: Comment on above: Pattern: Regular 11-02-2022 07:22-0500 Respiratory rate 16 /min sarah Benson [facility] Comprehensiv e Internal Medicine; [facility] Work Phone: Comment on above: Pattern: Unlabored 11-02-2022 07:22-0500 SaO2% (BldA) [Mass fraction] 95 % [facility]; [facility] Work Phone: Comment on above: Room air 11-02-2022 07:22-0500 Systolic blood pressure 130 mm[Hg] Yohan Benson [facility]; [facility] Work Phone: Comment on above: Patient Position: Sitting; Cuff Location : Left Arm; Cuff Size: Standard 09-20-2022 07:00-0500 Body height 148.59 cm [facility]; [facility] Work Phone: 09-20-2022 07:00-0500 Body mass index (BMI) [Ratio] 59.24 kg/m2 [facility]; [facility] Work Phone: 09-20-2022 07:00-0500 Body surface area Derived from formula 2.14 m2 [facility]; [facility] Work Phone: 09-20-2022 07:00-0500 Body temperature 96.9 [degF] [facility] Comprehensiv e [facility]; [facility] Work Phone: 09-20-2022 07:00-0500 Body weight 130.81 kg [facility]; [facility] Work Phone: 09-20-2022 07:00-0500 Diastolic blood pressure 82 mm[Hg] [facility]; [facility] Work Phone: Comment on above: Patient Position: Sitting; Cuff Location : Left Arm; Cuff Size: Standard 09-20-2022 07:00-0500 Heart rate 80 /min [facility]; [facility] Work Phone: Comment on above: Pattern: Regular 09-20-2022 07:00-0500 Respiratory rate 16 /min [facility] Comprehensiv e Internal Medicine; [facility] Work Phone: Comment on above: Pattern: Unlabored 09-20-2022 07:00-0500 SaO2% (BldA) [Mass fraction] 95 % Yohan Benson [facility]; [facility] Work Phone: Comment on above: Room air 09-20-2022 07:00-0500 Systolic blood pressure 130 mm[Hg] Yohan Benson [facility]; [facility] Work [...] : Left Arm; Cuff Size: Standard 02-26-2022 13:12-0400 Body height 148.59 cm Kisha Martínez [facility]; [facility] Work Phone: 02-26-2022 13:12-0400 Body mass index (BMI) [Ratio] 57.93 kg/m2 Kisha Martínez [facility]; [facility] Work Phone: 02-26-2022 13:12-0400 Body surface area Derived from formula 2.12 m2 Kisha Martínez [facility]; [facility] Work Phone: 02-26-2022 13:12-0400 Body temperature 97.3 [degF] Kisha Martínez [facility] Comprehensiv e Internal [facility]; [facility] Work Phone: Comment on above: Method: Infrared 02-26-2022 13:12-0400 Body weight 127.92 kg Kisha Martínez [facility]; [facility] Work Phone: 02-26-2022 13:12-0400 Diastolic blood pressure 90 mm[Hg] Kisha Martínez [facility]; [facility] Work Phone: Comment on above: Patient Position: Sitting; Cuff Location : Left Arm; Cuff Size: Standard 02-26-2022 13:12-0400 Heart rate 99 /min Kisha Martínez [facility]; [facility] Work Phone: Comment on above: Pattern: Regular 02-26-2022 13:12-0400 Respiratory rate 18 /min Kisha Martínez [facility] Comprehensiv e Internal Medicine; [facility] Work Phone: Comment on above: Pattern: Unlabored 02-26-2022 13:12-0400 SaO2% (BldA) [Mass fraction] 94 % Kisha Martínez [facility]; [facility] Work Phone: Comment on above: Room air 02-26-2022 13:12-0400 Systolic blood pressure 141 mm[Hg] Kisha Martínez [employer] [facility]; [facility] Work Phone: Comment on above: Patient Position: Sitting; Cuff Location : Left Arm; Cuff Size: Standard 01-24-2022 14:38-0400 Body height 148.59 cm Kisha Martínez [facility]; [facility] Work Phone: 01-24-2022 14:38-0400 Body mass index (BMI) [Ratio] 56.29 kg/m2 Kisha Martínez [facility]; [facility] Work Phone: 01-24-2022 14:38-0400 Body surface area Derived from formula 2.1 m2 Kisha Martínez [facility]; [facility] Work Phone: 01-24-2022 14:38-0400 Body temperature 97.3 [degF] Kisha Martínez [facility] Comprehensiv e Internal Medicine; [facility] Work Phone: Comment on above: Method: Infrared 01-24-2022 14:38-0400 Body weight 124.29 kg Kisha Martínez [facility]; [facility] Work Phone: 01-24-2022 14:38-0400 Diastolic blood pressure 82 mm[Hg] Kisha Martínez [facility]; [facility] Work Phone: Comment on above: Patient Position: Sitting; Cuff Location : Left Arm; Cuff Size: Standard 01-24-2022 14:38-0400 Heart rate 96 /min Kisha Martínez [facility]; [facility] Work Phone: Comment on above: Pattern: Regular 01-24-2022 14:38-0400 Respiratory rate 20 /min Kisha Martínez [facility] Comprehensiv e Internal Medicine; [facility] Work Phone: Comment on above: Pattern: Unlabored 01-24-2022 14:38-0400 SaO2% (BldA) [Mass fraction] 93 % Kisha Martínez [facility]; [facility] Work Phone: Comment on above: Room air 01-24-2022 14:38-0400 Systolic blood pressure 147 mm[Hg] Kisha Martínez [facility]; [facility] Work Phone: Comment on above: Patient Position: Sitting; Cuff Location : Left Arm; Cuff Size: Standard Encounters Encounter Date Encounter Type Care Provider Facility Start: 04-29-2025 ambulatory Evangelina Irby Facilit y:[facility] Start: 03-23-2025 End: 03-23-[address] Evangelina Iryb DO Work Phone: -Laboratory Start: 03-23-2025 End: 03-23-[address] Evangelina Irby DO -Laboratory Work Phone: Start: 03-23-2025 End: 03-23-2025 ambulatory Evangelina Irby Facility:[facility] Start: 11-21-2024 End: 11-21-[address] Evangelina Irby DO Work Phone: [facility] Work Phone: Start: 11-21-2024 End: 11-21-[address] Evangelina Irby DO -Laboratory Work Phone: Start: 11-21-2024 End: 11-21-2024 ambulatory Evangelina Irby Facility:[facility] Start: 07-17-2024 End: 07-17-2024 ambulatory Evagnelina Irby Facility:[facility] Start: 06-20-2024 End: 06-20-2024 ambulatory Evangelina Irby Facility:[facility] Start: 12-07-2023 End: 12-07-[address] Evangelina Irby Work Phone: [facility] Work Phone: Start: 12-07-2023 End: 12-07-[address] Evangelina Irby Work Phone: [facility]-Laboratory Work Phone: Start: 08-28-2023 End: 08-28-[address] Evangelina Irby Work Phone: [facility] Work Phone: Start: 03-04-2023 End: 03-04-[address] Evangelina Irby Work Phone: [facility] Work Phone: Start: 03-04-2023 End: 03-04-[address] Evangel[facility] rIby [facility] Start: 02-11-2023 End: 02-11-[address] Evangelina Irby Work Phone: [facility] Work Phone: Start: 02-11-2023 End: 02-11-[address] Evangelina Irby Work Phone: [facility] Start: 12-06-2022 Non-patient / Non-visit Dr. Evangelina Irby Work Phone: [facility] Start: 12-06-2022 End: 12-06-[address] Evangelina Irby Work Phone: [facility] Work Phone: Start: 12-06-2022 End: 12-06-[address] Evangelina Irby Work Phone: [facility]-Cardiovascular Services Start: 11-27-2022 End: 11-27-[address] [facility] Work Phone: Start: 11-27-2022 End: 11-27-2022 Patient encounter procedure [facility] Start: 11-22-2022 End: 11-22-[address] [facility] Work Phone: Start: 11-22-2022 End: 11-22-2022 Patient encounter procedure [facility]-Laboratory Start: 11-02-2022 End: 11-02-2022 Patient encounter procedure Yohan Benson [employer] [facility]; [facility] Work Phone: Start: 11-02-2022 End: 11-02-2022 Periodic preventive med est patient 40-64yrs Evangelina Surekha DO Work Phone: [facility] Start: 10-09-2022 ambulatory Evangelina Surekha [...] Start: 01-27-2022 End: 01-27-2022 Patient encounter procedure [facility]-Laboratory Start: 01-24-2022 End: 01-24-2022 Office outpatient new 30 minutes Evangelina Surekha DO Work Phone: [facility] Start: 10-10-2017 End: 10-11-2017 Ambulatory DOROTHY MCGOWAN [facility] Start: 09-29-2017 End: 09-29-2017 Ambulatory DOROTHY MCGOWAN [facility] Procedures Date Procedure Procedure Detail Performing Clinician Start: 03-23-2025 Urnls dip stick/tablet reagent auto microscopy Dr. Evangelina Irby DO Work Phone: Start: 02-11-2023 End: 02-11-2023 Chest without Contrast Procedure Note: See Note; NOTES: [facility] Imaging Services [address] [place] [address] Chest without Contrast MR#: [id number] Acct: [id number] Name: YESSI MOREIRA Rep #: [id number] : 1975 F 47 From: Ollie Huerta MD PCP: Dr. Evangelina Irby, DO Status: REG CLI Study: Chest without Contrast Date of Exam: 02/11/23 Exam# [id number] Ordering Dr: Rafa Maxwell MD INDICATION: Worsening [...] 8:31 EDT Reading Location ID and State: [facility] / [place] , Service support , CC: Dr. Evangelina Irby DO; Dr. Rafa Maxwell MD Yarn Dumper: Signed Evangelina Irby DO Work Phone: Start: 02-11-2023 CT of chest without contrast Dr. Evangelina Irby Work Phone: Start: 12-06-2022 End: 12-08-2022 Echo Complete Procedure Note: See Note; NOTES: [facility] Cardiovascular Services [address] [place] [address] Echo Complete 12/06/22 1346 MR#: [id number] Acct: [id number] Name: YESSI MOREIRA Rep #: [id number] : 1975 47 From: Cyrus Holloway MD Attending Dr: Dr. Rafa Maxwell MD Status: REG CLI Ordering Dr: Rafa Maxwell MD Date: 12/06/22 Location: [facility] Sex: F C Admitted: Reason For [...] V Referring Physician: Evangelina Irby Performed By: Tmamy Joseph RDCS, RVT 12/08/22 1245 Date Cyrus Holloway MD CC: Dr. Evangelina Irby DO; Dr. Rafa Maxwell MD Date Dictated: 12/06/22 1346 Date Transcribed: 12/08/22 1245 Yarn Dumper: Signed Evangelina Irby DO Work Phone: Start: 11-27-2022 End: 11-28-2022 Chest PA and Lateral Procedure Note: See Note; NOTES: [facility] Imaging Services [address] [place] [address] Chest PA and Lateral MR#: [id number] Acct: [id number] Name: YESSI MOREIRA Rep #: [id number] : 1975 F 47 From: Shoaib Roberts MD PCP: Dr. Evangelina Irby DO Status: REG CLI Study: Chest PA and Lateral Date of Exam: 11/27/22 Exam# [id number] Ordering Dr: Rafa Maxwell MD STUDY: X-RAY [...] Evangelina Irby DO; Dr. 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 Comment on above: repair a fractured f oot, has pins in foot Operative procedure on foot Elin Xavi MOLD HOLDER Comment on above: repair a fractured f oot, has pins in foot Operative procedure on foot Danika Beverly [place] Comment on above: repair a fractured f oot, has pins in foot Operative procedure on foot Kayela [place] [employer] EXAMINER Comment on above: repair a fractured f oot, has pins in foot Plan of Treatment Date Care Activity Detail Author Start: 11-02-2022 Procedure Education Eprescribed prescriptions (G8553) [facility] Work Phone: Start: 11-02-2022 Provider Instructions for Treatment [facility]; [facility] Work Phone: Start: 11-02-2022 Hpv, dna, amp probe HPV Auto Reflex PAP ([id number]) [facility]; [facility] Work Phone: Start: 09-20-2022 Urnls dip stick/tablet reagent auto microscopy URINALYSIS, W/ MICRO (84996) [facility]; [facility] Work Phone: Start: 09-20-2022 Urine albumin quantitative MICROALBUMIN: CREATININE RATIO (63868) AND (10415) [facility]; [facility] Work Phone: Start: 09-20-2022 Comprehensive metabolic panel METABOLIC PANEL, COMPREHENSIVE (72958) [facility]; [facility] Work Phone: Start: 09-20-2022 Lipid panel LIPID PANEL (91147) [facility]; [facility] Work Phone: Start: 09-20-2022 Blood count complete auto&auto difrntl wbc CBC W/AUTO DIFF WBC (69349) [facility]; [facility] Work [...] stick/tablet reagent auto microscopy URINALYSIS, W/ MICRO (95711) [facility]; [facility] Work Phone: Start: 01-24-2022 Urine albumin quantitative MICROALBUMIN: CREATININE RATIO (53275) AND (33425) [facility]; [facility] Work Phone: Start: 01-24-2022 Comprehensive metabolic panel METABOLIC PANEL, COMPREHENSIVE (99741) [facility]; [facility] Work Phone: Start: 01-24-2022 Lipid panel LIPID PANEL (50442) [facility]; [facility] Work Phone: Start: 01-24-2022 Blood count complete auto&auto difrntl wbc CBC W/AUTO DIFF WBC (32786) [facility]; [facility] Work [...] Immunizations Immunization Date Immunization Notes Care Provider [facility] 07-17-2024 tetanus toxoid, reduced diphtheria toxoid, and acellular pertussis vaccine, adsorbed Dr. Evangelina Irby DO Work Phone: [facility] 06-23-2021 COVID-Moderna (100 MCG/0.5 ML) Evangelina Irby DO Work Phone: [facility] Work Phone: 09-23-2020 COVID-Moderna (100 MCG/0.5 ML) Evangelina Irby DO Work Phone: [facility] Work Phone: Payers Date Payer Category Payer Unknown [id number] 2024 Self-pay [id number] 2021 Unknown [id number] 1975 Unknown [id number] Unknown Sole BC/BS Unknown [id number] Unknown [id number] 2.16.8 [id number] Unknown [id number] 2.16.8 [id number] Unknown [id number] 2.16.8 [id number] Unknown [id number] 2.16.8 [id number] Unknown [id number] [id number] Social History Date Type Detail Facility Caffeine Use Caffeine Use [facility] Work Phone: Comment on above: 1 can of pop Start: 01-27-2022 End: 08-28-2023 Tobacco smoking status NHIS Unknown if ever smoked [facility] Start: 1975 Sex Assigned At Female [facility] Start: 08-28-2023 Tobacco smoking status NHIS Ex-smoker (finding) [facility] Start: 12-03-2024 Sex Female (finding) [facility] Clinical Notes Note Date & Type Note Facility Evaluation note No assessment information availa ble [facility] Work Phone: Evaluation note Diagnosis Onset Date Dyspnea acute Essential hypertension acute [facility] Work Phone: Instructions* Name Dates Details Patient Instructions Indication:Morbid obesity Start:24-Jan-2022 Instruction Type:Provider Instructions for Treatment How to Access Health Informa tion Online using Patient Portal and [employer] Apps Indication:Morbid obesity Start:24-Jan-2022 Instruction Type:Patient Edu cation [facility] Work Phone: Instructions* Name Dates Details Patient Instructions Indication:Morbid obesity Start:19-Mar-2022 Instruction Type:Provider Instructions for Treatment How to Access Health Informa tion Online using Patient Portal and [employer] Indication:Morbid obesity Start:19-Mar-2022 Instruction Type:Patient Education Patient Instructions Indication:HTN (hypertension), benign Start:26-Feb-2022 Instruction Type:Provider Instructions for Treatment How to Access Health Informa tion Online using Patient Portal and [employer] Indication:HTN (hypertension), benign Start:26-Feb-2022 [...] Phone: instructions* Name Dates Details Patient Instructions Indication:Non-smoker Start:20-Sep-2022 [...] [facility] Medicine; [facility] Work Phone: insNjuiceions* Name Dates Details Patient Instructions Indication:Non-smoker Start:20-Sep-2022 [...] Informa tion Online using Patient Portal and apps[employer] Indication:BMI 50.0-59.9, adult Start:02-Nov-2022 [...] for referral (narrative)No reason for referral [facility] Work Phone: Summary Purpose Family History No Family History Records FoundUnknown Family Member Name Dates Details Father Comments:auto [...] section and content) DATE CREATED AUTHOR 03/18/2018 [facility] DATE CREATED AUTHOR AUTHOR'S ORGANIZ ATION 10/10/2022 [facility] DATE CREATED AUTHOR AUTHOR'S ORGANIZ ATION 04/28/2025 [facility] Goals (unrecognized section and content) Goals may [...] Evangelina Irby DO Primary Care Provider Active Team Status: Inactive Member Role Status Dates Dr. Evangelina Irby DO Primary Care Provider, Referr ing Provider Active Dr. Austyn Hutson MD Attending Provider Active Team Status: Inactive Member Role Status Dates Dr. Evangelina Irby DO Primary Care Pr ovider, Attending Provider, [...] November 21, 2024 End: November 21, 2024 Team Status: Active Member Role/Relationship Status Dates Dr. Evangelina Irby DO Primary Care Provider Active Team Status: Inactive Member Role/Relationship Status Dates Dr. Evangelina Irby DO Primary Care Provider Active Start: March 23, 2025 End: March 23, 2025 Dr. Evangelina Irby DO Attending Provider Active Start: March 23, 2025 End: March 23, 2025 Dr. Evangelina Irby DO Referring Provider Active Start: March 23, 2025 End: March 23, 2025 FOR RECORDS PERTAINING TO PATIENTS WHO ARE [...] BE BASED ON THE PRIMARY CLINICAL RECORDS. [facility], [facility]. provides no warranty or guarantee of the accuracy or completeness of information in this document.
--- NOTE | 2025-04-29 15:04 | CA.SCORE ---
Calcium Scoring Date of Study:: 04/29/25 Indications Indications: Hyperlipidemia Coronary Calcium Scoring: High-resolution Computed Tomographic imaging of the chest was performed on [04/29/2025], with particular attention paid to the coronary arteries. Images from the examination were analyzed for the presence and extent of coronary artery calcification , using coronary calcium quantification software. The patient tolerated the procedure well and there were no complications. The results of the coronary calcification analysis are provided below. Findings Coronary Artery Left Main (LM): 0 Left Anterior Descending (LAD): 8 Left Circumflex (LCX): 0 Right Coronary Artery (RCA): 0 Total Agatston Score: 8 Percentile Rankinth to 90th percentile Calcium Scoring Interpretation: Different methods to categorize the overall amount of coronary plaque. Overall amount CAC SIS Visual of coronary plaque P1 Mild -100 <2 1-2 vessels with mild amount of plaque P2 Moderate 101-300 3-4 1-2 vessels with moderate amount, 3 vessels with mild amount of plaque P3 Severe 301-999 5-7 3 vessels with moderate amount, 1 vessel with severe amount of plaque P4 Extensive >1000 >8 2-3 vessels with severe amount of plaque Calcium Score: Mild: 1-2 vessels w/mild amount of plaque Conclusion: Mild focal plaque noted.
== END | disposition home or self-care (01) ==
LOC: CT 06:38
PROVIDERS: PCP Internal Medicine; Referring Provider Internal Medicine; Visit Provider Internal Medicine
DX: E78.5 Hyperlipidemia, unspecified (principal)
CPT/HCPCS: 75571; 76380